=== PATIENT | female | born 1985 | race Caucasian/White ===

== ENCOUNTER 2023-06-16 19:50 | Emergency (ER) | payer OTHER, SELFPAY ==
[2023-06-16 20:07] VITALS: BP 120/81
[2023-06-16 20:22] LABS: % Basophils 0.5 % (0-2); % Eosinophils 0.8 % (0-6); % Immature Granulocytes 0.3 % (0-0.5); % Lymphocytes 20.5 % (20.5-51.1); % Monocytes 5.6 % (1.7-9.3); % Neutrophils 72.3 % (42.2-75.2); Absolute Basophils 0.1 10^3/uL (0-0.2); Absolute Eosinophils 0.1 10^3/uL (0-0.7); Absolute Lymphocytes 2.3 10^3/uL (1.2-3.4); Absolute Monocytes 0.6 10^3/uL (0.1-0.6); Hematocrit 38.6 % (37.0-47.0); Hemoglobin 12.5 g/dL (12.0-16.0); Mean Corp Hgb Conc. 32.4 g/dL (33.0-37.0); Mean Corpuscular Hgb 30.2 pg (27.0-31.0); Mean Corpuscular Volume 93.2 fL (81.0-99.0); Mean Platelet Volume 8.4 fL (7.4-10.4); Nucleated Red Blood Cells % 0 %; Platelet Count 257 10^3/uL (130-400); Red Blood Cell Count 4.14 10^6/uL (4.20-5.40); Red Cell Dist. Width 13.7 % (11.5-14.5)
[2023-06-16 20:38] LABS: ALT (SGPT) 19 U/L (0-35); AST (SGOT) 22 U/L (14-36); Albumin 4.5 g/dl (3.5-5.0); Alkaline Phosphatase 79 U/L (38-126); Blood Urea Nitrogen 17 mg/dl (7-17); Calcium 9.7 mg/dl (8.4-10.2); Carbon Dioxide 26 mmol/L (22-30); Chloride 103 mmol/L (98-107); Glucose 105 mg/dl (70-99); Sodium 137 mmol/L (135-145); Total Bilirubin 0.5 mg/dl (0.2-1.3); Total Protein 7.5 g/dl (6.3-8.2); eGFR > 60.00
[2023-06-16 20:43] LABS: Potassium 4.5 mmol/L (3.5-5.1)
[2023-06-16 22:18] VITALS: BP 109/72
--- NOTE | 2023-06-16 22:18 | ED.GENMED ---
History of Present Illness
General
Chief Complaint: Breathing Problem
Source: patient
Exam Limitations: none
Time Seen by Provider: 06/16/23 22:09
Travel History
Have you had any contact with someone who has COVID-19?: No
Do you have any symptoms of coronavirus? Fever > 100 degrees, chills, cough, shortness of breath, sore throat, loss of taste or smell, muscle aches, or headache?: No
History of Present Illness
History of Present Illness:
38-year-old female presents with cough and shortness of breath. She states that she gets lightheadedness when standing up. Denies chest pain. States that this has been going on for weeks but today it seems a little worse. She reports no fever or
chills. Patient does have a past medical history significant for stroke November 2022. She has left sided weakness from that. She states that the stroke was attributed to increased caffeine intake.
Vital signs are stable. Patient not hypoxic
Nursing note reviewed. I agree with nursing documentation up to this point in time.
Home Meds and allergies reviewed.
NUMBER AND COMPLEXITY OF PROBLEMS ADDRESSED AT THE ENCOUNTER
� Chronic conditions affecting care: Factor V Leiden, CVA on anticoagulation, smoker, weakness
� Acute Exacerbation and/or Progression of Chronic Illness: Weakness
� Differential Diagnosis includes: Dehydration, orthostatic hypotension, TIA
AMOUNT AND/OR COMPLEXITY OF DATA TO BE REVIEWED AND ANALYZED
I performed an independent evaluation of the following and my interpretation is:
EKG: EKG shows normal sinus rhythm rate of 92 with normal intervals, normal axis. No evidence of acute ischemia present. When compared with previous EKG dated March 15, 2023, no obvious interval change noted.
CT:
X-rays:
Ultrasound:
Laboratory Studies:
Other:
Review of other/old records:
Clinical information was obtained by an independent historian:
Prescriptions/Medications Considered but not given:
Further testing considered but not performed:
RISK OF COMPLICATIONS AND/OR MORBIDITY OR MORTALITY OF PATIENT MANAGEMENT
Social determinants of health affecting care: Good Social Support
Discussion with other providers:
Escalation of care including admission/observation vs risk of discharge considered:
CRITICAL CARE NOTE:
Total Time (exclusive of procedures):
Update:
Past History
Past History
ED Past Medical History: NIDDM, Psychiatric (Anxiety) and Other (Factor V Deficiency, gestational diabetes, gastric sleeve)
Social History
Tobacco: Smoker
Alcohol: None
Personal:
Living: with family
Employment: Employed
Family History
Family History: CAD and Other (Breast cancer)
Review of Systems
Review of Systems
Allergies reviewed?: Yes
All Other Systems: ROS reviewed and negative except as documented in HPI and ROS
Constitutional: Reports no symptoms
EENT: Reports no symptoms
Respiratory: Reports no symptoms
Cardiac: Reports no symptoms
ABD/GI: Reports no symptoms
: Reports no symptoms
Musculoskeletal: Reports no symptoms
Skin: Reports no symptoms
Neurological: Reports weakness
Endocrine: Reports no symptoms
Hematologic/Lymphatic: Reports no symptoms
Psychiatric: Reports anxiety
Phy Exam
General Physical Exam
General Presentation: well appearing and no apparent distress
General Skin: warm and dry
General Habitus: normal
General Mental: alert
General Hydration: appears well hydrated
ENT Exam
ENT Exam: EOMI, pharynx normal, neck supple and normocephalic
Eye Exam
Eye Exam: PERRL, cornea clear and conjunctiva normal
Cardiovascular Exam
Cardiovascular Exam: regular rate/rhythm, no edema, no murmur and normal peripheral pulses
Pulmonary Exam
Pulmonary Exam: lungs clear, no respiratory distress, no rales, no crackles, no rhonchi, no stridor, no wheezing and no cough
Gastrointestinal Exam
Gastrointestinal Exam: normal bowel sounds, non tender, soft, no organomegaly, no pulsatile mass and non distended
Neurological Exam
Neurological Exam: alert, oriented x3, no motor deficits and speech normal
Musculoskeletal Exam
Musculoskeletal Exam: other (Subacute left-sided weakness from CVA)
Skin Exam
Skin Exam: normal color, warm/dry and other (Multiple tattoos)
Psychiatric Exam
Psychiatric Exam: normal mood/affect
Course
Orders/Labs/Results
Orders:
Orders
06/16/23 20:09
Electrocardiogram (*1) Urgent
Reason for Study: Other
Other Reason for Exam: Respiratory Distress
Cardiac Monitoring- Treatment ONCE
EKG- Treatment ONCE
IV Insert/Care/Rem.- Treatment PRN
CR Chest - 2 Views Urgent
Comment:
Reason For Exam: respiratory distress
O2 Therapy [RESP] Urgent
Titrate/Wean O2 to maintain O2 sat greater than (%): 93
Special Instructions: TO MAINTAIN CONTINUOUS O2 SATS >/= 93%
Pulse Ox/cont/shift [RESP] Urgent
Quantity: 1
Special Instructions: continuous pulse ox
06/16/23 20:15
Complete Blood Count/With Diff Urgent
Comprehensive Metabolic Panel Urgent
06/16/23 22:19
Orthostatic VS- Treatment ONCE
06/17/23 02:34
Ambulate Patient-Treatment ONCE
Abnormal Lab Results
06/16/23
20:15
WBC 11.0 H 10^3/uL
(4.8-10.8)
RBC 4.14 L 10^6/uL
(4.20-5.40)
MCHC 32.4 L g/dL
(33.0-37.0)
Absolute Neuts (auto) 8.0 H 10^3/uL
(1.4-6.5)
Glucose 105 H mg/dl
(70-99)
06/16/23 20:15
06/16/23 20:15
Vital Signs
Initial and Last Documented VS:
Initial Vital Signs
Temp Pulse Resp BP Pulse Ox
98.1 F 114 19 120/81 98
06/16/23 20:07 06/16/23 20:07 06/16/23 20:07 06/16/23 20:07 06/16/23 20:07
Last Documented Vital Signs
Temp Pulse Resp BP Pulse Ox
98.1 F 103 12 96/65 97
06/16/23 20:07 06/17/23 02:45 06/17/23 02:45 06/17/23 00:00 06/17/23 02:30
*Critical Care Note
Total Time (30-74mins, 75-104mins- exclusive of procedures): Not Applicable
Update Note
Update Note:
06/17/2023 0244 AM: Patient states that she is feeling much better wishes to be discharged home. She denies dizziness or lightheadedness at this time.
ED Attending Note
-
Portions of this chart may have been created with voice recognition software.� Occasional wrong word or��sound alike� substitutions may have occurred due to the inherent limitations of voice recognition software.
Discharge Plan
Departure
Patient Disposition: Home (Routine Discharge)
Date of Disposition: 06/17/23
Time of Disposition: 02:44
Patient with high blood pressure during this ER visit?: No
Condition: Good
Discharge Problem:
Dizziness, Cough
Instructions: Cough in adults, Dizziness, Adult ED
Prescriptions:
No Action
prednisone 20 mg tablet
40 mg PO DAILY 4 Days Qty: 8 0RF
Referrals:
[facility] [Outside]
[facility] [Outside]
UNKNOWN - PT DOES,NOT KNOW [Family Provider] -
Activity Restrictions/Additional Instructions:
It was a pleasure meeting you and taking part in your care. We hope for your continued healing and wellness.
Please read discharge instructions in their entirety. However, they are for general education and may not describe your exact diagnosis at discharge. Information on your ER visit and medical conditions were discussed with you along with appropriate
follow up information...
If indicated, please take your medications as instructed and indicated on discharge paperwork.
Please schedule a follow up appointment as directed. Call to schedule an appointment
Please return to the emergency department with ANY change in, persisting, or worsening of symptoms. If any of your symptoms do not improve, or persist, or become more severe within 6-12 hours, please return to the emergency department for further
care.
Please return to the emergency department if you develop a headache, neck pain/stiffness, fever greater than 100.4F, chest pain, shortness of breath, persistent nausea, vomiting, slurred speech, difficulty walking, numbness/tingling, weakness, signs
of infection or any other symptoms that are worrisome to you.
If you have any questions or concerns please do not hesitate to call the Hospital at
Interventions
Interventions:
*Risk Screen - Suicide Last Done: 06/16/23 20:07
*General Assessment Last Done: 06/16/23 20:07
*Neglect/Abuse Screening Last Done: 06/16/23 20:07
ED- Fall Risk Assessment Last Done: 06/16/23 22:47
*ED COVID-19 Vaccine History Last Done: 06/16/23 20:07
*Nursing Disposition Last Done: 06/17/23 02:56
ED- Cardiac Assessment Last Done: 06/16/23 22:47
ED- Pulmonary Assessment Last Done: 06/16/23 22:47
Discharge Date and Time
Discharge Date/Time: 06/17/23 02:57
Print Language: DANISH
[2023-06-16 22:19] VITALS: BP 109/72; BP 115/80; BP 94/81; PULSE 118; PULSE 83; PULSE 96
[2023-06-16 22:20] VITALS: BP 94/81
[2023-06-17] VITALS: BP 96/65
== END 2023-06-17 02:57 | disposition home or self-care (01) ==
LOC: EMR 19:50
PROVIDERS: Emergency Medicine; EMERGENCY PHYSICIAN Student in an Organized Health Care Education/Training Program
DX: R42 Dizziness and giddiness (principal); R05.9 Cough, unspecified; R06.02 Shortness of breath; E11.9 Type 2 diabetes mellitus without complications; D68.51 Activated protein C resistance; I69.354 Hemiplegia and hemiparesis following cerebral infarction affecting left non-dominant side; F41.9 Anxiety disorder, unspecified; F17.200 Nicotine dependence, unspecified, uncomplicated; Z98.84 Bariatric surgery status
CPT/HCPCS: 99284; 94760; 71046; 80053; 85025; 93005

== ENCOUNTER 2023-10-11 06:19 | Emergency (ER) | payer OTHER, SELFPAY ==
[2023-10-11 06:31] VITALS: BP 103/60
--- NOTE | 2023-10-11 07:06 | ED.GENMED ---
History of Present Illness
General
Chief Complaint: Abdominal Pain
Source: patient
Exam Limitations: none
Time Seen by Provider: 10/11/23 07:05
Nursing documentation reviewed up to this point in time: agreed with
History of Present Illness
History of Present Illness:
38-year-old female with history of migraines, TIA, HLD, GERD, gastric sleeve, x 2, tubal ligation, factor V deficiency on Xarelto, presents stating chronic indigestions, takes Protonix daily, suddenly mid epigastric pain worsened yesterday
to 11/16 stabbing sharp pains, trouble sleeping, nausea no vomiting, pain now 09/15.
Milk helps 'coat the pain.' Eating makes pain worse. Took an Edible yesterday which helped. Having normal BMs, no change in color
Hx diabetes but resolved after gastric sleeve.
Past History
Past History
ED Past Medical History: Psychiatric (Anxiety) and Other (Factor V Deficiency, gestational diabetes, gastric sleeve)
Social History
Tobacco: Smoker
Alcohol: None
Personal:
Living: with family
Employment: Employed
Family History
Family History: CAD and Other (Breast cancer)
Review of Systems
Review of Systems
Allergies reviewed?: Yes
All Other Systems: ROS reviewed and negative except as documented in HPI and ROS
Constitutional: Denies fever
Respiratory: Denies trouble breathing
Cardiac: Denies chest pain
ABD/GI: Reports abdominal pain and nausea; Denies vomiting, diarrhea, constipated, bloody stools, black stools or anorexia
: Denies dysuria, frequency or difficulty voiding
Musculoskeletal: Reports no symptoms
Skin: Reports no symptoms
Neurological: Reports no symptoms
Phy Exam
Physical Exam
Physical Exam:
GENERAL: No acute distress. A&Ox3.
CONSTITUTIONAL: Afebrile.
EYES: clear, conjunctivae normal
ENMT: moist mucus membranes, Pharynx nl
RESPIRATORY: Regular respirations, nonlabored, lungs clear.
CARDIOVASCULAR: Regular rate and rhythm, no murmurs, no rubs.
GI: Soft, tender mid epigastric area, normal BS
MUSCULOSKELETAL: Moves with ease. Well perfused.
SKIN: Warm, dry, pink
PSYCH: Depressed mood and affect. Well kept, interactive and appropriate
NEUROLOGIC: Awake, alert and oriented. No focal neurological deficits
Course
Orders/Labs/Results
Orders:
Orders
10/11/23 07:16
IV Insert/Care/Rem.- Treatment PRN
0.9% Sodium Chloride 1000 ml [Nss] 1,000 ml IV BOLUS
Ondansetron Injectable [Zofran] 4 mg IV NOW STA
10/11/23 07:17
Test Result ONCE
US Abdomen Complete/Upper Urgent
Comment:
Reason For Exam: mid epigastric pain
10/11/23 07:22
Complete Blood Count/With Diff Urgent
Comprehensive Metabolic Panel Urgent
HCG, Serum Qualitative Screen Urgent
Lipase Urgent
Abnormal Lab Results
10/11/23
07:22
Chloride 109 H mmol/L
(98-107)
Lipase 316 H U/L
(23-300)
10/11/23 07:22
10/11/23 07:22
Vital Signs
Initial and Last Documented VS:
Initial Vital Signs
Temp Pulse Resp BP Pulse Ox
98.5 F 114 20 103/60 100
10/11/23 06:31 10/11/23 06:31 10/11/23 06:31 10/11/23 06:31 10/11/23 06:31
Last Documented Vital Signs
Temp Pulse Resp BP Pulse Ox
98.5 F 114 20 93/65 99
10/11/23 06:31 10/11/23 06:31 10/11/23 06:31 10/11/23 11:00 10/11/23 09:19
MDM/Problems Addressed
Differential Diagnosis Includes:
GERD, biliary colic, GB disease, PUD
MDM/Problems Addressed:
38-year-old female with history of migraines, TIA, HLD, GERD, gastric sleeve, x 2, tubal ligation, factor V deficiency on Xarelto, presents stating chronic indigestions, takes Protonix daily, suddenly mid epigastric pain worsened yesterday
to 9/10 stabbing sharp pains, trouble sleeping, nausea no vomiting, pain now 7/10.
Milk helps 'coat the pain.' Eating makes pain worse. Took an Edible yesterday which helped. Having normal BMs, no change in color
Hx diabetes but resolved after gastric sleeve.
Afebrile, NAD, VSS
CBC normal
CMP Normal
Lipase minimally elevated 316
10:45 a.m.
Upper abdominal ultrasound radiology report read: IMPRESSION:
Cholelithiasis with a 2.3 cm stone. There are no sonographic signs suggestive of acute cholecystitis. No evidence of biliary ductal dilation.
Possible 3 mm nonobstructing stone in the lower pole of the left kidney.
Most likely biliary colic with GERD
Pt has had no vomiting, afebrile, pain is chronic, intermittent, well controlled with 'Edibles' no need for admission, referred to Surgery for f/u
Patient is comfortable with this plan. Pain is minimal at this time.
*Critical Care Note
Total Time (30-74mins, 75-104mins- exclusive of procedures): Not Applicable
ED Attending Note
-
Portions of this chart may have been created with voice recognition software.� Occasional wrong word or��sound alike� substitutions may have occurred due to the inherent limitations of voice recognition software.
Discharge Plan
Departure
Patient Disposition: Home (Routine Discharge)
Date of Disposition: 10/11/23
Time of Disposition: 10:52
Patient with high blood pressure during this ER visit?: No
Condition: Good
Discharge Problem:
Biliary colic, GERD (gastroesophageal reflux disease)
Instructions: Acid Reflux and GERD in Adults (DC), Gallstones (DC), Abdominal Pain
Prescriptions:
No Action
prednisone 20 mg tablet
40 mg PO DAILY 4 Days Qty: 8 0RF
Referrals:
Syed Purdy MD [Active] - Next open appointment
Erica Singleton MD [Active] - Next open appointment
Chiquita Thompson DO [Family Provider] -
Activity Restrictions/Additional Instructions:
As we discussed, you do have a gall stone.
Call and make an appointment with a general surgeon to discuss possibly removing her gallbladder since it has been bothering him for so long.
I gave you the name of the GI doctor to follow-up with for your indigestion/GI reflux. Continue your Protonix
Interventions
Interventions:
*Risk Screen - Suicide Last Done: 10/11/23 06:31
*General Assessment Last Done: 10/11/23 06:31
*Neglect/Abuse Screening Last Done: 10/11/23 06:31
ED- Fall Risk Assessment Last Done: 10/11/23 06:31
*ED COVID-19 Vaccine History Last Done: 10/11/23 06:31
*Nursing Disposition Last Done: 10/11/23 11:03
YO-Whrwwr-Dpksqgzqcg Assessment Last Done: 10/11/23 11:02
Discharge Date and Time
Discharge Date/Time: 10/11/23 11:03
Print Language: IRANIAN
[2023-10-11 07:11] VITALS: BMI 19.8
[2023-10-11 07:13] VITALS: BP 97/69
[2023-10-11] MEDS: NSS 1000 IV (07:21)
[2023-10-11] MEDS: ZOFRAN 4 MG IV (07:28)
[2023-10-11 07:33] LABS: % Basophils 0.6 % (0-2); % Eosinophils 1.1 % (0-6); % Immature Granulocytes 0.2 % (0-0.5); % Neutrophils 66.1 % (42.2-75.2); Absolute Basophils 0.1 10^3/uL (0-0.2); Absolute Eosinophils 0.1 10^3/uL (0-0.7); Absolute Lymphocytes 2.3 10^3/uL (1.2-3.4); Absolute Monocytes 0.5 10^3/uL (0.1-0.6); Absolute Neutrophils 5.8 10^3/uL (1.4-6.5); Hematocrit 38.7 % (37.0-47.0); Mean Corp Hgb Conc. 33.6 g/dL (33.0-37.0); Mean Corpuscular Hgb 30.7 pg (27.0-31.0); Mean Corpuscular Volume 91.5 fL (81.0-99.0); Mean Platelet Volume 8.4 fL (7.4-10.4); Nucleated Red Blood Cells % 0 %; Platelet Count 195 10^3/uL (130-400); Red Blood Cell Count 4.23 10^6/uL (4.20-5.40); Red Cell Dist. Width 13.4 % (11.5-14.5); White Blood Cell Count 8.7 10^3/uL (4.8-10.8)
[2023-10-11 07:42] LABS: HCG, Serum Qualitative Screen Negative
[2023-10-11 07:46] LABS: ALT (SGPT) 14 U/L (0-35); AST (SGOT) 18 U/L (14-36); Albumin 4.4 g/dl (3.5-5.0); Alkaline Phosphatase 61 U/L (38-126); Blood Urea Nitrogen 17 mg/dl (7-17); Calcium 9.4 mg/dl (8.4-10.2); Carbon Dioxide 27 mmol/L (22-30); Chloride 109 mmol/L (98-107); Estimated Creatinine Clearance 64 ml/min; Glucose 94 mg/dl (70-99); Lipase 316 U/L (23-300); Sodium 142 mmol/L (135-145); Total Bilirubin 0.4 mg/dl (0.2-1.3); Total Protein 7.1 g/dl (6.3-8.2); eGFR > 60.00
[2023-10-11 08:00] VITALS: BP 101/75
[2023-10-11 09:00] VITALS: BP 109/68
[2023-10-11 11:00] VITALS: BP 93/65
== END 2023-10-11 11:03 | disposition home or self-care (01) ==
LOC: EMR 06:19
PROVIDERS: Registered Nurse; EMERGENCY PHYSICIAN Emergency Medicine; FAMILY PHYSICIAN Family Medicine
DX: K80.70 Calculus of gallbladder and bile duct without cholecystitis without obstruction (principal); E78.5 Hyperlipidemia, unspecified; F17.200 Nicotine dependence, unspecified, uncomplicated; K21.9 Gastro-esophageal reflux disease without esophagitis
CPT/HCPCS: 99284; 96374; 96361; 76700; 80053; 83690; 84703; 85025

== ENCOUNTER 2024-01-02 12:17 | Inpatient (IN) | payer OTHER, SELFPAY ==
[2024-01-02] VITALS (8 sets, daily range): BP systolic 95–116; BP diastolic 60–74; BMI 20.7; BMI 20.5
[2024-01-02 00:32] LABS: Urine Albumin Trace (Neg - Trace); Urine Bilirubin Negative (Negative); Urine Character Slightly Cloudy (Clear); Urine Color Yellow; Urine Glucose Negative (Negative); Urine Ketone Negative (Negative); Urine Leukocyte 2+ (Negative); Urine Nitrite Negative (Negative); Urine Occult Blood Negative (Negative); Urine Specific Gravity 1.025 (<1.030); Urine Urobilinogen Negative (Neg - 1+)
--- NOTE | 2024-01-02 00:35 | ED.GENMED ---
History of Present Illness
General
Chief Complaint: Flank Pain
Source: patient
Exam Limitations: none
Time Seen by Provider: 01/02/24 00:27
Nursing documentation reviewed up to this point in time: agreed with
History of Present Illness
History of Present Illness:
Patient with history of kidney stones, presents to ED secondary to recurrent left flank/mid back pain, which woke the patient from sleep. Since then, patient has had multiple vomiting episodes, along with continual pain. Patient states that her
symptoms are similar to previous episodes of kidney stones.
Past History
Past History
ED Past Medical History: Psychiatric (Anxiety) and Other (Factor V Deficiency, gestational diabetes, gastric sleeve)
Social History
Tobacco: Smoker
Alcohol: None
Personal:
Living: with family
Employment: Employed
Family History
Family History: CAD and Other (Breast cancer)
Review of Systems
Review of Systems
Allergies reviewed?: Yes
All Other Systems: ROS reviewed and negative except as documented in HPI and ROS
Constitutional: Reports no symptoms; Denies fever or chills
ABD/GI: Reports nausea and vomiting; Denies abdominal pain
: Reports flank pain; Denies frequency or difficulty voiding
Musculoskeletal: Reports back pain
Skin: Reports no symptoms
Neurological: Reports no symptoms
Phy Exam
Physical Exam
Physical Exam:
Physical Exam
General: mild painful distress, not acutely ill. afebrile
Head: nc/at. eomi
Neck: supple. no meningeal signs.
Abdomen: normal bowel sounds. not tender.
Neuro: alert and oriented. no focal neurological deficits
Skin: no rash
Psychiatric: well kept. interactive and cooperative
Extremities: no edema. no calf tenderness.
Course
Orders/Labs/Results
Orders:
Orders
01/02/24 00:25
Urinalysis Reflex To Culture Urgent
Date Specimen was Collected: 01/02/24
Time Specimen was Collected: 00:22
Urine Microscopic Reflex Cult Urgent
Urine Culture Urgent
GERRI Source: U
Specimen Description:
Date Specimen was Collected: 01/02/24
Time Specimen was Collected: 00:22
01/02/24 00:34
CT Abd/pel Without Iv Or Oral Urgent
Comment:
Reason For Exam: left flank/mid back pain
Ketorolac [Toradol] 15 mg IV NOW STA
Ondansetron Injectable [Zofran] 4 mg IV NOW STA
Test Result ONCE
01/02/24 00:42
Complete Blood Count/No Diff Urgent
Comprehensive Metabolic Panel Urgent
Direct Bilirubin Urgent
HCG, Serum Qualitative Screen Urgent
Lipase Urgent
01/02/24 02:57
Add On- LAB Urgent
Tests Added?: LFTs, lipase
01/02/24 02:58
Ketorolac [Toradol] 15 mg IV NOW STA
Oxycodone/Acetaminophen [Percocet 5/325] 1 tablet PO NOW STA
01/02/24 03:04
Ondansetron Injectable [Zofran] 4 mg IV NOW STA
01/02/24 03:19
HYDROmorphone [Dilaudid] 0.5 mg IV NOW STA
01/02/24 03:21
US Abdomen Complete/Upper Urgent
Comment:
Reason For Exam: RUQ pain
01/02/24 04:06
Admit/Transfer Patient As Directed
Co-Sign Provider:
Level of Care: Observation services
Assign to:: Medical/Surgical
Physician / Group: Dr. Tiwari colorectal Surgical
Diagnosis: Cholelithiasis/ Acute cholecystitis
01/02/24 04:07
PRN Pain Medication Management As Directed
May give lesser potent ordered pain med per pt: Yes
preference::
Protocol:: Medication orders for pain may be administered in a
manner that supports deferring to patient preference
when the pt is:
- Requesting an ordered lesser potent pain medication.
Least to most potent pain medications are defined
as: acetaminophen < NSAID < tramadol < opioids
(morphine, oxycodone, hydromorphone).
- Requesting a lesser dose of the same medication IF
ORDERED.
- Requesting a less intrusive route of administration
if both routes are prescribed by the provider (PO <
IV).
01/02/24 04:15
Code Status As Directed
Resuscitation Status: Full Code
01/02/24 Breakfast
NPO
Allow oral meds: Yes
Allow clear liquids: No
01/02/24 06:25
0.9% Sodium Chloride 1000 ml [Nss] 1,000 ml IV 70 mls/hr
Acetaminophen [Tylenol] 650 mg PO Q4HPRN PRN
Bisacodyl [Dulcolax] 10 mg RECTAL [id number] PRN
Docusate W/Senna [Senokot-S] 1 tablet PO BIDPRN PRN
HYDROmorphone [Dilaudid] 0.25 mg IV Q4HPRN PRN
HYDROmorphone [Dilaudid] 0.5 mg IV Q4HPRN PRN
Ondansetron Injectable [Zofran] 4 mg IV Q6HPRN PRN
Polyethylene Glycol Powder [Miralax] 17 grams PO DAILYPRN PRN
01/02/24 06:25
Activity As Directed
Activity Level: Out of Bed-Early Mobility
Pneumatic Compression Sleeves As Directed
Type: Knee high
Vital Signs As Directed
Frequency: Per unit guidelines
DX Deep Vein Thrombosis Video Routine
Abnormal Lab Results
01/02/24 01/02/24
00:25 00:42
WBC 15.7 H 10^3/uL
(4.8-10.8)
Chloride 108 H mmol/L
(98-107)
Glucose 119 H mg/dl
(70-99)
Leukocyte Esterase Rfl 2+ A
(Negative)
Urine WBC (Reflex) 50-60 A /HPF
(0-5)
Urine Bacteria (Reflex) Moderate A
(Negative)
01/02/24 00:42
01/02/24 00:42
Vital Signs
Initial and Last Documented VS:
Initial Vital Signs
Pulse Resp BP Pulse Ox
81 20 101/70 92
01/02/24 00:17 01/02/24 00:17 01/02/24 00:17 01/02/24 00:17
Last Documented Vital Signs
Temp Pulse Resp BP Pulse Ox
98.2 F 74 16 116/74 100
01/02/24 16:15 01/02/24 16:15 01/02/24 16:15 01/02/24 16:15 01/02/24 16:15
MDM/Problems Addressed
MDM/Problems Addressed:
CT abdomen/pelvis: gallstones noted, without any evidence of obstructing kidney stone.
Patient remains symptomatic despite treatment with multiple medications. In light of patient's continual abdominal discomfort, as well as gallstones noted, as well as leukocytosis, concerning for potential acute cholecystitis.
Discussed with on-call surgeon, Dr. Tiwari, who advises withholding antibiotics at this time, but request abdominal ultrasound and admission.
*Critical Care Note
Total Time (30-74mins, 75-104mins- exclusive of procedures): Not Applicable
ED Attending Note
-
Portions of this chart may have been created with voice recognition software.� Occasional wrong word or��sound alike� substitutions may have occurred due to the inherent limitations of voice recognition software.
Discharge Plan
Departure
Patient Disposition: Admit
Date of Disposition: 01/02/24
Time of Disposition: 03:22
Admit to: Med/Surg
Presentation/result/management discussed w/ accepting MD/DO:
Discharge Problem:
Acute cholecystitis
Interventions
Interventions:
*Risk Screen - Suicide Last Done: 01/02/24 06:36
*General Assessment Last Done: 01/02/24 00:46
*Neglect/Abuse Screening Last Done: 01/02/24 00:17
ED- Fall Risk Assessment Last Done: 01/02/24 06:10
*ED COVID-19 Vaccine History Last Done: 01/02/24 00:17
*Nursing Disposition Last Done: 01/02/24 06:10
MV-[id number]-Ladvrocxzg Assessment Last Done: 01/02/24 00:50
Discharge Date and Time
Discharge Date/Time: 01/02/24 06:10
[2024-01-02 00:38] LABS: Urine Squamous Cell >30 /LPF (Few)
[2024-01-02 00:39] LABS: Urine Bacteria Moderate (Negative); Urine Red Blood Cell None Seen /HPF (0-2); Urine White Cell 50-60 /HPF (0-5)
[2024-01-02] MEDS: ZOFRAN 4 MG IV ×2 (00:43→03:06)
[2024-01-02] MEDS: TORADOL 15 MG IV ×2 (00:44→03:08)
[2024-01-02 00:54] LABS: Hematocrit 37.8 % (37.0-47.0); Mean Corp Hgb Conc. 34.4 g/dL (33.0-37.0); Mean Platelet Volume 8.6 fL (7.4-10.4); Platelet Count 249 10^3/uL (130-400); White Blood Cell Count 15.7 10^3/uL (4.8-10.8)
[2024-01-02 01:09] LABS: HCG, Serum Qualitative Screen Negative
[2024-01-02 01:17] LABS: Blood Urea Nitrogen 17 mg/dl (7-17); Calcium 9.1 mg/dl (8.4-10.2); Carbon Dioxide 25 mmol/L (22-30); Chloride 108 mmol/L (98-107); Estimated Creatinine Clearance 67 ml/min; Glucose 119 mg/dl (70-99); Potassium 4.3 mmol/L (3.5-5.1); Sodium 145 mmol/L (135-145); eGFR > 60.00
[2024-01-02] MEDS: DILAUDID 0.5 MG IV ×4 (03:29→20:19)
[2024-01-02 03:40] LABS: ALT (SGPT) 21 U/L (0-35); AST (SGOT) 22 U/L (14-36); Albumin 4.4 g/dl (3.5-5.0); Alkaline Phosphatase 61 U/L (38-126); Direct Bilirubin 0.1 mg/dl (0.0-0.4); Lipase 279 U/L (23-300); Total Bilirubin 0.2 mg/dl (0.2-1.3); Total Protein 7.1 g/dl (6.3-8.2)
--- NOTE | 2024-01-02 04:21 | HPS.HSE ---
Addendum entered and electronically signed by Tanner Banda MD 01/02/24 12:47:
38 female history of TIA migraines gastric sleeve factor V Leyden, anxiety presents with right-sided flank pain, abdominal pain. States worse after eating dinner and before sleeping. 10 out of 10 pain. Known history of recurrent UTIs and admits
to urinary frequency. Also associated with multiple episodes of vomiting.
Found to have a white count of 15.7, ua with pyuria/bacteruria and leuks. Hemodyncamically stbale
Imaging
CTAP
IMPRESSION:
Nonobstructing right renal calculi.
No findings to suggest obstructive uropathy bilaterally.
Mild colonic diverticulosis.
Unremarkable appendix.
Prior gastric bypass surgery.
Possible mild gallbladder wall thickening. Please see separate concurrent Abdominal ultrasound report.
ABdominal ultrasound
IMPRESSION: Cholelithiasis with borderline gallbladder wall thickening. Negative sonographic Tomas's sign although may be limited by patient medication. No findings to suggest biliary tract dilatation. Some mild gallbladder adenomyomatosis cannot
be excluded.
Spleen not well visualized.
Small nonobstructing right renal calculus.
Physical Exam
NAD, resting comfortably in bed
Scleral anicteric
Moist mucous membranes
No JVD
CTA bilateral
Normal S1-S2 no murmurs
Soft nontender nondistended bowel sounds active
CVA tenderness +, right sided
No peripheral pitting edema
Moves extremities spontaneously
AAOx3
Assessment and Plan
UTI (?pyelo as there is Rt CVA tenderness) vs gallbladder pathology
-HIDA scan
-NPO
-Surgery following
-IV Atb
-UCx, de-ecalate atb to po when sensi's return
-Follow white ocunt
Factor V Leiden
-contineu xarelto
Original Note:
Family Physician
-
Family Physician: Chiquita Thompson DO
Chief Complaint
-
Abdominal/ flank pain
History of Present Illness
a 38 years old female with PMH of kidney stones, TIA, migraines, gastric sleeve, factor V deficiency, and anxiety. Present in ER with a complain of RT flank pain, abdomen pain above umbilical area, and mid back pain. Patient had dinner of meatball
before sleeping and she woke with severe pain rated 10/10 of pain scale, described the pain as pressure. Symptoms associated with multiple episodes of vomiting. Denied diarrhea, constipation, chills, fever, SOB, chest pain, or any other symptoms.
Patient denies taking any prescribed meds except Adderall 40mg daily .
Medical History
Past Medical History
Past Medical History: Reports Psychiatric (anxiety) and Other (Factor V deficiency, TIA, )
Past Surgical History: Reports (x2 ), Gynocological ( tubal ligation) and Other (gastric sleeve )
Social History
Tobacco: Smoker
Alcohol: None
Drug: Marijuana
Personal:
Living: With Family
Employment: Employed
Family History
Family History: CAD, Cancer (breast cancer ) and Other (Sister with gallbladder disease)
Allergies / Home Medications
Allergies reflects when Allergies were last updated in [facility].
Home Medications with original date entered in [facility]
Allergy/Medication List:
Patient Allergies
Allergy/AdvReac Type Severity Reaction Status Date / Time
No Known Allergies Allergy Verified 01/02/24 00:17
Home Medications Table - record
�Medication �Instructions �Recorded �Confirmed
Adderall XR 40 mg PO DAILY 01/02/24 01/02/24
pregabalin 50 mg capsule (Lyrica) 50 mg PO BID 01/02/24 01/02/24
Review of Systems
-
A 12 point ROS was completed and negative except as noted: Yes
Constitutional: Reports No Symptoms
Respiratory: Reports No Symptoms
Cardiac: Reports No Symptoms
Abdomen/GI: Reports Abdominal Pain, Vomiting and Pain (upper middle abdomen )
: Reports No Symptoms
Musculoskeletal: Reports No Symptoms
Psych: Reports No Symptoms
Physical Exam
Vital Signs
Vital Signs
Temp Pulse Resp BP Pulse Ox
98.3 F 67 16 99/72 96
01/02/24 03:13 01/02/24 03:13 01/02/24 03:13 01/02/24 03:13 01/02/24 03:13
Physical Exam
General: No Apparent Distress
Respiratory: Clear
Cardiac: Regular Rhythm
GI: Soft, Non Distended, Normal Bowel Sounds and Tender (RUQ and above umbilical area )
Musculoskeletal: No Edema
Neuro: Awake and AO x 3
Laboratory Results
-
01/02/24 00:42
01/02/24 00:42
Laboratory Results
Total Bilirubin 0.2 mg/dl (0.2-1.3) 01/02/24 00:42
AST 22 U/L (14-36) 01/02/24 00:42
ALT 21 U/L (0-35) 01/02/24 00:42
Alkaline Phosphatase 61 U/L (38-126) 01/02/24 00:42
Lipase 279 U/L (23-300) 01/02/24 00:42
Data Reviewed
-
CT Scan: Discussed with Patient
Impression/Plan
-
Abd/ PLVS CT Show
-Normal Appendix
-Nonobstructing stones in the RT kidney. No hydronephrosis or hydroureter.
-Occasional diverticula without evidence of diverticulitis.
-Gallstone and the gallbladder is mildly distended but no evidence of surrounding inflammatory changes or biliary dilation.
-No adnexal masses or significant free fluids
-Gastric sleeve procedure.
WBC 15.7
IMPRESSION:
cholelithiasis/ Biliary colic
PLAN:
Admit/observation/ med-surg (Dr. Tiwari/ Surgical services).
NPO
IVF
analgesics as needed
antiemetics as needed
recommends withholding abx and ordering RUQ abdomen, result still pending.
PMH
TIA 2022
Factor V deficiency
Patient denies taking any prescribed meds at home
DVT prophylaxis SCDs
Code status Full code
[2024-01-02] MEDS: NSS 1000 IV (07:49)
[2024-01-02] MEDS: ZOSYN 50 IV ×2 (11:22→17:03)
--- NOTE | 2024-01-02 12:29 | CON.GS ---
Addendum entered and electronically signed by Mike Tiwari MD 01/02/24 16:09:
HIDA negative for cholecystitis; clinical picture most consistent with pyelonephritis
Advance diet as tolerated; surgery will sign off, please call for questions or concerns
Original Note:
Medical History
-
Chief Complaint: right flank pain
History of Present Illness:
Ms Bullard is a 38 yo female with a h/o active smoker, factor v leiden on Xarelto (LD 12/31 in the am), CVA with thrombectomy at [facility] 05/03/2022, nephrolithiasis csections and gastric bypass who presents with right flank pain which awakened her from
sleep in the middle of the night. She notes pain to her right back around to the front of her abdomen. She noted nausea and vomiting at onset of symptoms. Negative tomas's but some tenderness present to the RUQ. She denies fevers or chills. She
said the pain initially felt like she was passing a kidney stone which caused her to present through the ED.
Past Medical History
Past Medical History: CVA (04/2022) and Other (Gestational diabetes, factor V leiden)
Past Surgical History: Bariatric (gastric sleeve), (x2) and Other (tubal ligation)
Social History
Tobacco: Smoker (less than 1/2 ppd, cutting back since stroke)
Alcohol: Occasional
Drug: Marijuana
Personal:
Family History
Family History: Reviewed & Not Pertinent and Cancer (breast)
Allergies / Home Medications
Allergy/AdvReac Type Severity Reaction Status Date / Time
No Known Allergies Allergy Verified 01/02/24 00:17
�Medication �Instructions �Recorded �Confirmed �Type
Adderall XR 40 mg PO DAILY 01/02/24 01/02/24 History
pregabalin 50 mg capsule (Lyrica) 50 mg PO BID 01/02/24 01/02/24 History
rivaroxaban 20 mg tablet (Xarelto) 20 mg PO DAILY Stroke 01/02/24 01/02/24 History
Review of Systems
-
History Source: Patient
All other systems: Negative unless noted
A 10 point review of systems was completed, and was negative except as per HPI.
Physical Exam
Vital Signs
Temp Pulse Resp BP Pulse Ox
98.6 F 70 16 100/66 100
01/02/24 07:00 01/02/24 07:00 01/02/24 07:00 01/02/24 07:00 01/02/24 07:00
01/01/24 01/02/24 01/03/24
06:59 06:59 06:59
Actual Weight 55.792 kg
Body Mass Index (BMI) 20.5
Lab Results
01/02/24 00:42
01/02/24 00:42
WBC 15.7 10^3/uL (4.8-10.8) H 01/02/24 00:42
Hgb 13.0 g/dL (12.0-16.0) 01/02/24 00:42
Hct 37.8 % (37.0-47.0) 01/02/24 00:42
Plt Count 249 10^3/uL (130-400) 01/02/24 00:42
Physical Exam
General: Well Developed and Well Nourished
HEENT: Moist Mucous Membranes
Respiratory: Non Labored Respirations
GI: Soft, Non Distended and Tender (mild to RUQ, neg tomas's)
Skin: Warm
Neuro: Awake, Alert and AO x 3
Psych: Calm
Assessment / Plan
-
38 yo female with a h/o active smoker, factor v leiden on Xarelto (LD 12/31 in the am), CVA with thrombectomy at [facility] 05/03/2022, nephrolithiasis c-sections and gastric bypass who presents with right flank pain radiating around to the RUQ with n/v at
onset of symptoms. Leukocytosis present. LFT's wnl. Afebrile. VSS.
ABD US with Cholelithiasis with borderline gallbladder wall thickening. Negative sonographic Tomas's sign on US and bedside exam. Possible gallbladder wall thickening on Ct as well but without significant inflammatory stranding/edema or distention.
UA abnormal with Cx pending. Unclear if this is symptomatic cholelithiasis vs more likely uti (early pyelo).
Transfer to hospitalist service
--Start ABX empirically
--Follow urine cx
--Check HIDA (npo for testing)
--Further surgical recommendations pending HIDA scan
[2024-01-02] MEDS: MORPHINE SULFATE 2 MG IV (14:44)
--- NOTE | 2024-01-02 15:46 | CM ---
Alert awake oriented patient who lives with her and 2 kids 15yo and 18 yo who live in a 2 story home with 4 steps to enter and bed/bathroom on fisrt floor. She is independent in driving and activates of daily living.Observation letter
explained and copy left with pt . Observation letter on chart . Pt did not sign.
No VN in past . No SNF hx
Pharmacy [facility]
PCP Dr Thompson
PLAN Home with no needs
[2024-01-02] MEDS: PEPCID 20 MG PO (17:03)
[2024-01-02] MEDS: LYRICA 50 MG PO (20:13)
--- NOTE | 2024-01-02 23:04 | PTCARENOTE ---
Received pt from previous RN, pt sleeping in bed, appears in no distress, rise and fall of chest, bed in lowest position call stephens at side.
[2024-01-03] MEDS: ZOSYN 50 IV ×5 (00:11→23:23)
[2024-01-03] MEDS: DILAUDID 0.5 MG IV ×5 (00:11→21:36)
[2024-01-03] MEDS: NSS 1000 IV (02:39)
[2024-01-03 05:10] LABS: Blood Urea Nitrogen 15 mg/dl (7-17); Calcium 8.4 mg/dl (8.4-10.2); Carbon Dioxide 25 mmol/L (22-30); Chloride 110 mmol/L (98-107); Estimated Creatinine Clearance 66 ml/min; Glucose 93 mg/dl (70-99); Potassium 3.8 mmol/L (3.5-5.1); Sodium 141 mmol/L (135-145); eGFR > 60.00
[2024-01-03 05:19] LABS: Hematocrit 32.2 % (37.0-47.0); Hemoglobin 10.9 g/dL (12.0-16.0); Mean Corp Hgb Conc. 33.9 g/dL (33.0-37.0); Mean Corpuscular Hgb 30.4 pg (27.0-31.0); Mean Corpuscular Volume 89.9 fL (81.0-99.0); Mean Platelet Volume 8.8 fL (7.4-10.4); Platelet Count 176 10^3/uL (130-400); Red Blood Cell Count 3.58 10^6/uL (4.20-5.40); White Blood Cell Count 10.2 10^3/uL (4.8-10.8)
[2024-01-03 07:00] VITALS: BP 126/59
[2024-01-03] MEDS: LYRICA 50 MG PO ×2 (07:33→21:00)
[2024-01-03] MEDS: XARELTO 20 MG PO (07:33)
--- NOTE | 2024-01-03 12:21 | W.PN.HOSP.TC ---
Today's Communication/Plan
-
Assessment / Plan
Assessment / Plan
Imaging
CTAP
IMPRESSION:
Nonobstructing right renal calculi.
No findings to suggest obstructive uropathy bilaterally.
Mild colonic diverticulosis.
Unremarkable appendix.
Prior gastric bypass surgery.
Possible mild gallbladder wall thickening. Please see separate concurrent Abdominal ultrasound report.
Abdominal ultrasound
IMPRESSION: Cholelithiasis with borderline gallbladder wall thickening. Negative sonographic Tomas's sign although may be limited by patient medication. No findings to suggest biliary tract dilatation. Some mild gallbladder adenomyomatosis cannot
be excluded.
Spleen not well visualized.
Small nonobstructing right renal calculus.
HIDA scan
IMPRESSION:
Findings indicate patent cystic and common bile ducts.
Physical Exam
NAD, resting comfortably in bed
Scleral anicteric
Moist mucous membranes
No JVD
CTA bilateral
Normal S1-S2 no murmurs
Soft nontender nondistended bowel sounds active
CVA tenderness +, right sided
No peripheral pitting edema
Moves extremities spontaneously
AAOx3
Assessment and Plan
UTI (?pyelo as there is Rt CVA tenderness) vs gallbladder pathology
-HIDA scan as above
-Regular diet
-Surgery following, no indication for OR
-IV Atb transition to PO once Ucx return
-UCx, de-escalate atb to po when sensi's return
-Follow white ocunt, improving
Factor V Leiden
-contineu xarelto
Anticipated Discharge: Within 24 hours
Subjective/Interval History
-
Date of Service: January 03, 2024
seen and examined.
no furhter back pain. now with abd pain
ucx pending
Objective Data
-
Labs:
Laboratory Results
01/03/24
04:15
WBC 10.2
Hgb 10.9 L
Hct 32.2 L
Plt Count 176 D
Sodium 141
Potassium 3.8
Chloride 110 H
Carbon Dioxide 25
BUN 15
Creatinine 1.0
Glucose 93
Calcium 8.4
Vital Signs:
Vital Signs
Temp Pulse Resp BP Pulse Ox
98.8 F 76 16 126/59 96
01/03/24 07:00 01/03/24 07:00 01/03/24 07:00 01/03/24 07:00 01/03/24 07:00
I&O
01/02/24 01/03/24 01/04/24
06:59 06:59 06:59
Intake Total 2870 / 2870
Balance 2870 / 2870
[2024-01-03] MEDS: NSS IV (14:41)
[2024-01-03 15:20] VITALS: BP 102/57
[2024-01-03 23:30] VITALS: BP 90/50
[2024-01-04 00:20] VITALS: BP 80/45
[2024-01-04] MEDS: NSS 500 IV (00:52)
--- NOTE | 2024-01-04 01:53 | PTCARENOTE ---
0023 - rechecked BP manually, was 80/45, pt asymptomatic. 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 New order placed for 500mL NSS bolus.
[2024-01-04 03:25] VITALS: BP 102/60
[2024-01-04] MEDS: NSS 1000 IV (03:45)
[2024-01-04] MEDS: ROXICODONE 5 MG PO (03:46)
[2024-01-04] MEDS: ZOSYN 50 IV ×4 (05:19→23:02)
[2024-01-04] MEDS: DILAUDID 0.5 MG IV ×2 (05:46→15:15)
[2024-01-04 07:15] VITALS: BP 137/67
[2024-01-04] MEDS: XARELTO 20 MG PO (09:10)
[2024-01-04] MEDS: LYRICA 50 MG PO ×2 (09:10→19:56)
--- NOTE | 2024-01-04 10:25 | W.PN.HOSP.TC ---
Today's Communication/Plan
-
Assessment / Plan
Assessment / Plan
Imaging
CTAP
IMPRESSION:
Nonobstructing right renal calculi.
No findings to suggest obstructive uropathy bilaterally.
Mild colonic diverticulosis.
Unremarkable appendix.
Prior gastric bypass surgery.
Possible mild gallbladder wall thickening. Please see separate concurrent Abdominal ultrasound report.
Abdominal ultrasound
IMPRESSION: Cholelithiasis with borderline gallbladder wall thickening. Negative sonographic Tomas's sign although may be limited by patient medication. No findings to suggest biliary tract dilatation. Some mild gallbladder adenomyomatosis cannot
be excluded.
Spleen not well visualized.
Small nonobstructing right renal calculus.
HIDA scan
IMPRESSION:
Findings indicate patent cystic and common bile ducts.
Physical Exam
NAD, resting comfortably in bed
Scleral anicteric
Moist mucous membranes
No JVD
CTA bilateral
Normal S1-S2 no murmurs
Soft right upper quadrant tenderness nondistended bowel sounds active
CVA tenderness +, right sided
No peripheral pitting edema
Moves extremities spontaneously
AAOx3
Assessment and Plan
UTI (?pyelo as there is Rt CVA tenderness) vs gallbladder pathology
-HIDA scan as above
-Regular diet
-Surgery following, no indication for OR
-IV Atb transition to PO once Ucx return
-UCx, de-escalate atb to po when sensi's return
-Follow white ocunt, improving
Factor V Leiden
-contineu xarelto
Right upper quadrant tenderness, scan suggestive of cholelithiasis without gallbladder distention/cholecystitis as this was not reported on HIDA scan
-Surgery previously following
-As there is pain at the right upper quadrant on deep palpation will ask surgery to reevaluate
If no plans for surgical intervention then we will plan to discharge home as she is tolerating diet without nausea vomiting and no further urinary tract symptoms.
Will plan to complete total of 7 days of antibiotics for pyelonephritis
Anticipated Discharge: Within 24 hours
Subjective/Interval History
-
Date of Service: January 04, 2024
Seen and examined. No new complaints. No acute overnight events.
States that she has abdominal pain this morning improved with eating worse but not eating
No more back pain no burning with urination no urinary frequency
Objective Data
-
Labs:
Laboratory Results
01/04/24
06:00
WBC Pending
Hgb Pending
Hct Pending
Plt Count Pending
Sodium Pending
Potassium Pending
Chloride Pending
Carbon Dioxide Pending
BUN Pending
Creatinine Pending
Glucose Pending
Calcium Pending
Vital Signs:
Vital Signs
Temp Pulse Resp BP Pulse Ox
97.9 F 85 14 137/67 100
01/04/24 07:15 01/04/24 07:15 01/04/24 07:15 01/04/24 07:15 01/04/24 07:15
I&O
01/03/24 01/04/24 01/05/24
06:59 06:59 06:59
Intake Total 2870 / 2870 2430 / 2430
Balance 2870 / 2870 2430 / 2430
--- NOTE | 2024-01-04 12:05 | W.DCSUMMARY ---
Discharge Summary
Discharge Data
Date of Admission: 01/02/24
Date of Discharge: 01/04/24
-
Pending Results: No
Hospital Course
38F history of TIA migraines gastric sleeve factor V Leyden, anxiety presents with right-sided flank pain, abdominal pain presented with right sided flank pain, urinary frequency and abdominal pain. CTAP completed in the ED showed gallbladder wall
thickening, abdominal ultrasound completed. Evaluated by surgery that recommened HIDA scan which showed opened cystic and common bile ducts. General surgery did not believe this was the cause of the pain therefore, no surgery was indicated at this
time. Due to the urinary frequency with the elevated white count, urine analysis was completed that was consistent with UTI. CTAP did not show kidney inflammation. Antibiotics started. Urine culture growth was likely contaminated as it grew out
mixed olimpia and was not repeat as already was on antiobiotics. Therefore, will complete a total of 7days of antibiotics for pyelonephritis.
Outpatient General surgery follow up
Outpatient Urology follow up
CTAP
IMPRESSION:
Nonobstructing right renal calculi.
No findings to suggest obstructive uropathy bilaterally.
Mild colonic diverticulosis.
Unremarkable appendix.
Prior gastric bypass surgery.
Possible mild gallbladder wall thickening. Please see separate concurrent Abdominal ultrasound report.
Abdominal ultrasound
IMPRESSION: Cholelithiasis with borderline gallbladder wall thickening. Negative sonographic Tomas's sign although may be limited by patient medication. No findings to suggest biliary tract dilatation. Some mild gallbladder adenomyomatosis cannot
be excluded.
Spleen not well visualized.
Small nonobstructing right renal calculus.
HIDA scan
IMPRESSION:
Findings indicate patent cystic and common bile ducts.
Discharge Plan
-
Patient Disposition: Home (Routine Discharge)
Discharge Diagnosis/Procedures: UTI
Condition: Good
Diet: As tolerated
Activity: As tolerated
Activity Restrictions/Additional Instructions:
Presented with right sided flank pain, urinary frequency and abdominal pain. CTAP completed in the ED showed gallbladder wall thickening, abdominal ultrasound completed. Evaluated by surgery that recommened HIDA scan which showed opened cystic and
common bile ducts. General surgery did not believe this was the cause of the pain therefore, no surgery was indicated at this time. Due to the urinary frequency with the elevated white count, urine analysis was completed that was consistent with
UTI. CTAP did not show kidney inflammation. Antibiotics started. Urine culture growth was likely contaminated as it grew out mixed olimpia and was not repeat as already was on antiobiotics. Therefore, will complete a total of 7days of antibiotics for
pyelonephritis.
Outpatient General surgery follow up
Outpatient Urology follow up
CTAP
IMPRESSION:
Nonobstructing right renal calculi.
No findings to suggest obstructive uropathy bilaterally.
Mild colonic diverticulosis.
Unremarkable appendix.
Prior gastric bypass surgery.
Possible mild gallbladder wall thickening. Please see separate concurrent Abdominal ultrasound report.
Abdominal ultrasound
IMPRESSION: Cholelithiasis with borderline gallbladder wall thickening. Negative sonographic Tomas's sign although may be limited by patient medication. No findings to suggest biliary tract dilatation. Some mild gallbladder adenomyomatosis cannot
be excluded.
Spleen not well visualized.
Small nonobstructing right renal calculus.
HIDA scan
IMPRESSION:
Findings indicate patent cystic and common bile ducts.
Referrals:
Mike Tiwari MD [Active] - in two to four weeks
Chiquita Thompson DO [Family Provider] -
Prescriptions:
New
cefpodoxime 200 mg tablet
200 mg PO BID 5 Days Qty: 10 0RF
Continued
Adderall XR
40 mg PO DAILY
pregabalin [Lyrica] 50 mg Capsule
50 mg PO BID
Xarelto 20 mg Tablet
20 mg PO DAILY
Discharge Orders:
Discharge Patient (As Directed); Ordered 01/04/24
Ordered By: Tanner Banda
Discharge Date and Time
Print Language: UKRAINIAN
--- NOTE | 2024-01-04 12:28 | CM ---
Case management following for discharge planning
Pt for discharge today
Reports has ride home with family member
Plan - anticipate home no needs
[2024-01-04 14:43] VITALS: BP 99/63
--- NOTE | 2024-01-04 15:07 | W.PN.GS2 ---
Today's Communication / Plan
-
repeat imaging/labs
Assessment / Plan
-
38-year-old female with PMH of factor V Leiden (on Xarelto), CVA November 2022 s/p endovascular embolectomy, migraines, anxiety, kidney stones, elevated BMI s/p gastric sleeve who presented with right flank/back pain with mild RUQ tenderness
associated with nausea and vomiting x 1; in the ED. Normal LFTs.
Leukocytosis present initially but resolved on abx. UA concerning for UTI confirmed with +ecoli in the urine cx and has been on abx for treatment while inpatient
CT on admission showing overall normal findings, but dilated gallbladder with questionable thickening. RUQ U/S on admission with gallstones and borderline thickening, no pericholecystic fluid, negative Tomas's
A HIDA was done for further evaluation and was normal
Asked to see patient again today as pain pattern has changed. RUQ pain worsening with resolution of flank pain.
--Repeat labs (CMP, CBC)
--Repeat US
--NPO for US
--Hold Xarelto
--Will follow
Subjective Data
-
Date of Service: January 04, 2024
Patient seen and examined at bedside. Reports pain to right flank has resolved but now having worsening pain to the RUQ. Denies n/v. But overall feeling worse than admission.
Objective Data
-
Intake and Output
01/03/24 01/04/24 01/05/24
06:59 06:59 06:59
Intake Total 2870 / 2870 2430 / 2430
Balance 2870 / 2870 2430 / 2430
Intake:
Oral fluids 1140 / 1140 1020 / 1020
IV fluids (Total) 1630 / 1630 1310 / 1310
IV piggybacks 100 / 100 100 / 100
Other:
Number of approximated MODERATE 3
amounts of urine
Number of approximated LARGE 2
amounts of urine
How many times incontinent 3
MODERATE amount urine
Vital Signs
Temp Pulse Resp BP Pulse Ox
97.9 F 85 14 137/67 100
01/04/24 07:15 01/04/24 07:15 01/04/24 07:15 01/04/24 07:15 01/04/24 08:00
Calcium 8.4 mg/dl (8.4-10.2) 01/03/24 04:15
Total Bilirubin 0.2 mg/dl (0.2-1.3) 01/02/24 00:42
Direct Bilirubin 0.1 mg/dl (0.0-0.4) 01/02/24 00:42
AST 22 U/L (14-36) 01/02/24 00:42
ALT 21 U/L (0-35) 01/02/24 00:42
Alkaline Phosphatase 61 U/L (38-126) 01/02/24 00:42
Total Protein 7.1 g/dl (6.3-8.2) 01/02/24 00:42
Albumin 4.4 g/dl (3.5-5.0) 01/02/24 00:42
Physical Exam
-
NAD
ABD soft, RUQ markedly tender, nd
--- NOTE | 2024-01-04 15:07 | PTCARENOTE ---
pt had chocolate and vanilla pudding for lunch-pt instructed to remain NPO for ABD US. pt states RUQ is tender. stat labs to be drawn.
will observe.
[2024-01-04] MEDS: FLUSH (NSS) 2 FLUSH IV (15:16)
[2024-01-04 16:55] LABS: Hematocrit 31.5 % (37.0-47.0); Hemoglobin 10.6 g/dL (12.0-16.0); Mean Corp Hgb Conc. 33.7 g/dL (33.0-37.0); Mean Corpuscular Hgb 31.9 pg (27.0-31.0); Mean Corpuscular Volume 94.9 fL (81.0-99.0); Platelet Count 173 10^3/uL (130-400); Red Blood Cell Count 3.32 10^6/uL (4.20-5.40); Red Cell Dist. Width 12.5 % (11.5-14.5); White Blood Cell Count 12.9 10^3/uL (4.8-10.8)
[2024-01-04 17:10] LABS: ALT (SGPT) 15 U/L (0-35); AST (SGOT) 16 U/L (14-36); Alkaline Phosphatase 44 U/L (38-126); Blood Urea Nitrogen 10 mg/dl (7-17); Calcium 8.2 mg/dl (8.4-10.2); Carbon Dioxide 24 mmol/L (22-30); Chloride 107 mmol/L (98-107); Estimated Creatinine Clearance 82 ml/min; Glucose 159 mg/dl (70-99); Sodium 139 mmol/L (135-145); Total Bilirubin 0.3 mg/dl (0.2-1.3); Total Protein 5.3 g/dl (6.3-8.2); eGFR > 60.00
[2024-01-04 17:15] LABS: Albumin 2.8 g/dl (3.5-5.0)
[2024-01-04] MEDS: FLUSH (NSS) 1 FLUSH IV (18:28)
[2024-01-04 23:00] VITALS: BP 97/60
[2024-01-05] MEDS: DILAUDID 0.5 MG IV ×5 (02:41→19:57)
[2024-01-05] MEDS: ZOSYN 50 IV ×4 (05:10→23:54)
[2024-01-05 07:08] VITALS: BP 102/62
[2024-01-05 07:18] LABS: Hematocrit 33.1 % (37.0-47.0); Hemoglobin 11.1 g/dL (12.0-16.0); Mean Corp Hgb Conc. 33.5 g/dL (33.0-37.0); Mean Corpuscular Hgb 30.8 pg (27.0-31.0); Mean Corpuscular Volume 91.9 fL (81.0-99.0); Mean Platelet Volume 9.2 fL (7.4-10.4); Platelet Count 203 10^3/uL (130-400); Red Cell Dist. Width 12.6 % (11.5-14.5); White Blood Cell Count 13.6 10^3/uL (4.8-10.8)
[2024-01-05 07:25] LABS: Blood Urea Nitrogen 8 mg/dl (7-17); Calcium 8.3 mg/dl (8.4-10.2); Carbon Dioxide 24 mmol/L (22-30); Chloride 106 mmol/L (98-107); Estimated Creatinine Clearance 94 ml/min; Glucose 72 mg/dl (70-99); Potassium 3.8 mmol/L (3.5-5.1); Sodium 140 mmol/L (135-145); eGFR > 60.00
--- NOTE | 2024-01-05 08:05 | W.PN.GS2 ---
Today's Communication / Plan
-
-- Laparoscopic cholecystectomy with possible IOC
-- NPO, IVF
-- Abx: Zosyn
-- Continue to hold anticoagulation
Assessment / Plan
-
Patient is a 38 yo F p/w RUQ and symptoms consistent with acute on chronic cholecystitis
WBC elevated, low-grade fevers, previous LFTs and bilirubin normal
Last dose of Xarelto coming up on 24 hours
Persistent signs and symptoms of cholecystitis. Options for management including cholecystectomy versus cholecystostomy tube were considered. The pros and cons of both approaches was discussed. Plan for a laparoscopic cholecystectomy. The
procedure itself, as well as the risks, benefits, and alternatives was discussed. Specifically, we discussed the risks of bleeding, infection, injury to surrounding structures (bowel, bile ducts), CBD injury, need for open procedure. We also
discussed anesthetic risks including DVT, ID, and stroke. We discussed that she is at increased risk for operative for complications as a relates to bleeding and potentially injury to nearby structures given her chronicity of symptoms and active
anticoagulation. Patient acknowledges understanding. All questions answered. Consent signed.
-- Laparoscopic cholecystectomy with possible IOC
-- NPO, IVF
-- Abx: Zosyn
-- Continue to hold anticoagulation
Subjective Data
-
Date of Service: January 05, 2024
Persistent RUQ abdominal pain. Low-grade fevers. No nausea or vomiting. Patient reports that she has been having persistent attacks on an almost daily basis for the past several weeks. She has been taking antacid medications to help alleviate
her symptoms. Previous reports of mild jaundice, she denies any pale stools or tea colored urine.
Objective Data
-
Intake and Output
01/04/24 01/05/24 01/06/24
06:59 06:59 06:59
Intake Total 2430 / 2430 1999
Balance 2430 / 2430 1999
Intake:
Oral fluids 1020 / 1020 1800 / 1800
IV fluids (Total) 1310 / 1310
IV piggybacks 100 / 100 200 / 200
Other:
Number of approximated MODERATE 3 3
amounts of urine
Number of approximated LARGE 2
amounts of urine
Vital Signs
Temp Pulse Resp BP Pulse Ox
98.6 F 86 20 97/60 97
01/04/24 23:00 01/04/24 23:00 01/04/24 23:00 01/04/24 23:00 01/04/24 23:00
Lab Results
01/05/24 04:26
01/05/24 04:26
Calcium 8.3 mg/dl (8.4-10.2) L 01/05/24 04:26
Total Bilirubin 0.3 mg/dl (0.2-1.3) 01/04/24 16:40
Direct Bilirubin 0.1 mg/dl (0.0-0.4) 01/02/24 00:42
AST 16 U/L (14-36) 01/04/24 16:40
ALT 15 U/L (0-35) 01/04/24 16:40
Alkaline Phosphatase 44 U/L (38-126) 01/04/24 16:40
Total Protein 5.3 g/dl (6.3-8.2) L D 01/04/24 16:40
Albumin 2.8 g/dl (3.5-5.0) L D 01/04/24 16:40
Physical Exam
-
Gen: NAD
Abd: soft, tender to palpation in RUQ, positive Tomas's sign, ND, non-peritoneal, prior incisions well healed
--- NOTE | 2024-01-05 08:10 | W.SUR.PREOP ---
Pre-Operative Surgical Note
-
I have examined this patient prior to the performance of the scheduled procedure.
The patient's condition is unchanged from the time of the current History and
Physical and the patient is able to undergo the scheduled procedure.
[2024-01-05] MEDS: LYRICA PO (08:32)
[2024-01-05] MEDS: ROXICODONE 10 MG PO ×4 (09:36→23:04)
--- NOTE | 2024-01-05 10:24 | CM ---
Case management following for discharge planning
Pt for OR today for Laparoscopic cholecystectomy with possible IOC
NPO
IV antibiotics
Plan - anticipate home no needs
--- NOTE | 2024-01-05 14:35 | W.PN.HOSP.TC ---
Today's Communication/Plan
-
for lap nilay
continue abx
NPO for now
Assessment / Plan
Assessment / Plan
CT A/P
Nonobstructing right renal calculi. No findings to suggest obstructive uropathy bilaterally. Mild colonic diverticulosis.
Unremarkable appendix. Prior gastric bypass surgery. Possible mild gallbladder wall thickening. Please see separate concurrent Abdominal ultrasound report.
Abdominal ultrasound
Cholelithiasis with borderline gallbladder wall thickening. Negative sonographic Tomas's sign although may be limited by patient medication. No findings to suggest biliary tract dilatation. Some mild gallbladder adenomyomatosis cannot be excluded.
Spleen not well visualized.
Small nonobstructing right renal calculus.
HIDA scan
Findings indicate patent cystic and common bile ducts.

1. Chronic cholecystitis
-continues to have RUQ pain
-Abd US and HIDA scan as above
-GS planning to take patient to OR today based on OR availability
-Maintain on zosyn for now
-Pain medication adjusted to oxycodone 5/10mg with IV Dilaudid breakthrough
2. Factor V Leiden
-continue xarelto post surgery
3. ADD
- maintain on Adderall xr if family brings the supply in.
Full code
Xareltoi
Anticipated Discharge: 24 - 48 hours
Subjective/Interval History
-
Date of Service: January 05, 2024
Continues to have right upper quadrant abdominal pain
Denies of having any nausea or vomiting
Afebrile overnight
Objective Data
-
Labs:
Laboratory Results
01/05/24
04:26
WBC 13.6 H
Hgb 11.1 L
Hct 33.1 L
Plt Count 203
Sodium 140
Potassium 3.8
Chloride 106
Carbon Dioxide 24
BUN 8
Creatinine 0.7
Glucose 72
Calcium 8.3 L
Vital Signs:
Vital Signs
Temp Pulse Resp BP Pulse Ox
98.4 F 79 18 102/62 94
01/05/24 07:08 01/05/24 07:08 01/05/24 07:08 01/05/24 07:08 01/05/24 07:08
I&O
01/04/24 01/05/24 01/06/24
06:59 06:59 06:59
Intake Total 2430 / 2430 1999
Balance 2430 / 2430 1999
Review of Systems
-
Respiratory: Reports No Symptoms
Cardiac: Reports No Symptoms
Abdomen/GI: Reports No Symptoms
Physical Exam
-
General: No Apparent Distress and Comfortable
HEENT: Negative Oxygen
Respiratory: Clear to Auscultation
Cardiac: Regular Rhythm and S1/S2; Negative Murmur or Rub
GI: Soft, Nondistended, Normal Bowel Sounds and Tender (RUQ)
Musculoskeletal: No Edema
Neuro: Awake, Alert, Oriented, No Motor Deficits and Nonfocal/Grossly Intact
Psych: Calm
[2024-01-05 15:30] VITALS: BP 112/71
[2024-01-05] MEDS: LYRICA 50 MG PO (19:57)
[2024-01-05] MEDS: PEPCID 20 MG PO (20:05)
[2024-01-05 23:42] VITALS: BP 108/67
[2024-01-06] VITALS (16 sets, daily range): BP systolic 5–135; BP diastolic 50–84
[2024-01-06] MEDS: ATIVAN 0.25 MG PO (02:48)
[2024-01-06] MEDS: ROXICODONE 10 MG PO (04:27)
[2024-01-06] MEDS: ZOSYN 50 IV ×3 (05:13→18:12)
[2024-01-06 06:27] LABS: Hematocrit 31.2 % (37.0-47.0); Hemoglobin 10.6 g/dL (12.0-16.0); Mean Corpuscular Hgb 31.5 pg (27.0-31.0); Mean Corpuscular Volume 92.6 fL (81.0-99.0); Mean Platelet Volume 9.2 fL (7.4-10.4); Platelet Count 188 10^3/uL (130-400); Red Blood Cell Count 3.37 10^6/uL (4.20-5.40); Red Cell Dist. Width 12.4 % (11.5-14.5); White Blood Cell Count 9.3 10^3/uL (4.8-10.8)
[2024-01-06 06:52] LABS: Blood Urea Nitrogen 7 mg/dl (7-17); Calcium 8.2 mg/dl (8.4-10.2); Carbon Dioxide 26 mmol/L (22-30); Chloride 105 mmol/L (98-107); Estimated Creatinine Clearance 82 ml/min; Glucose 74 mg/dl (70-99); Sodium 139 mmol/L (135-145); eGFR > 60.00
[2024-01-06 06:58] LABS: Potassium 3.7 mmol/L (3.5-5.1)
[2024-01-06] MEDS: LYRICA 50 MG PO ×2 (08:01→20:33)
--- NOTE | 2024-01-06 11:22 | CM ---
Case management following for discharge planning
Chart reviewed
Pt for OR today for Laparoscopic cholecystectomy with possible IOC
NPO
Plan - anticipate home no needs
--- NOTE | 2024-01-06 12:04 | W.IMMPOSTOP ---
Addendum entered and electronically signed by Mike Emerson MD 01/06/24 12:11:
The assistance of MEREDITH Nieves was required due to the complexity of the procedure. During the procedure she assisted with retraction, resection, and closure of the wound.
Addendum entered and electronically signed by Mike Emerson MD 01/06/24 12:10:
Plan:
-- OK to resume Xarelto 48 hours post-op if drain output and labs OK
-- Abx: for 7 days post-op given fevers pre-op and purulence within GB
-- Tentative plan for RONALDO removal and DC at the earliest on Thursday
Original Note:
Surgical Immed Post Op Note
-
Primary Surgeon: Ki
Assisting Surgeon: MEREDITH Main
Pre-op Diagnosis: Acute cholecystitis
Post-op Diagnosis: Acute cholecystitis
Procedure Performed: Laparoscopic cholecystectomy with IOC
Anesthesia Type: General
Specimen / Cultures:
1. Gallbladder
Estimated Blood Loss: 23 cc
Complications: None
Operative Findings:
1. Acutely inflamed, thickened wall GB, purulence within lumen, acute on chronic inflammation
2. IOC with anatomy confirmed, unable to completely fill proximal radicals due to preferential flow
3. Inferior 1/2 of GB take off hepatic plate prior to taking cystic duct with 30 mm purple load stapler, artery with clips
4. 19 Fr Cristofer drain into operative field
[2024-01-06] MEDS: DEMEROL 12.5 MG IV (12:14)
[2024-01-06] MEDS: DILAUDID 0.5 MG IV ×2 (12:35→18:06)
--- NOTE | 2024-01-06 13:14 | PTCARENOTE ---
pt received from PACU back to Room 2102 via bed. pt drowsy but arouses easily. pt educated on post op plan of care. tolerated sips of water. call stephens in reach. abdominal incisions ONELIA w/adhesive, RLQ RONALDO drain patent w/serosanguineous output
noted. will observe.
--- NOTE | 2024-01-06 14:19 | W.PN.HOSP.TC ---
Today's Communication/Plan
-
continue post op care
continue abx
diet per GS
Assessment / Plan
Assessment / Plan
CT A/P
Nonobstructing right renal calculi. No findings to suggest obstructive uropathy bilaterally. Mild colonic diverticulosis.
Unremarkable appendix. Prior gastric bypass surgery. Possible mild gallbladder wall thickening. Please see separate concurrent Abdominal ultrasound report.
Abdominal ultrasound
Cholelithiasis with borderline gallbladder wall thickening. Negative sonographic Tomas's sign although may be limited by patient medication. No findings to suggest biliary tract dilatation. Some mild gallbladder adenomyomatosis cannot be excluded.
Spleen not well visualized.
Small nonobstructing right renal calculus.
HIDA scan
Findings indicate patent cystic and common bile ducts.

1. Chronic cholecystitis
-continues to have RUQ pain
-Abd US and HIDA scan as above
-Maintain on zosyn for now
-Pain medication adjusted to oxycodone 5/10mg with IV Dilaudid breakthrough
-s/p lap cholecystectomy today
-Ronaldo drain in palce.
2. Factor V Leiden
-resume xaerlto in 48hrs per GS
3. ADD
- maintain on Adderall xr if family brings the supply in.
Full code
Xarelto
Anticipated Discharge: > 48 hours
Subjective/Interval History
-
Date of Service: January 06, 2024
patient seen postoperatively in the room
complaining of some right sided pain
no n/v
Objective Data
-
Labs:
Laboratory Results
01/06/24
04:24
WBC 9.3
Hgb 10.6 L
Hct 31.2 L
Plt Count 188
Sodium 139
Potassium 3.7
Chloride 105
Carbon Dioxide 26
BUN 7
Creatinine 0.8
Glucose 74
Calcium 8.2 L
Vital Signs:
Vital Signs
Temp Pulse Resp BP Pulse Ox
98.6 F 72 15 109/69 95
01/06/24 13:09 01/06/24 13:09 01/06/24 13:09 01/06/24 13:09 01/06/24 13:09
I&O
01/05/24 01/06/24 01/07/24
06:59 06:59 06:59
Intake Total 1999 580 / 580
Output Total 5 5
Balance 1999 580 / 580 -5 / -5
Review of Systems
-
Unable to obtain full review of systems at this time due to: Acuity
Physical Exam
-
General: No Apparent Distress and Comfortable
HEENT: Negative Oxygen
Respiratory: Clear to Auscultation
Cardiac: Regular Rhythm and S1/S2; Negative Murmur or Rub
GI: Tender (RUQ) and Other (RUQ RONALDO drain in place)
Musculoskeletal: No Edema
Neuro: Awake, Alert, Oriented, No Motor Deficits and Nonfocal/Grossly Intact
Psych: Calm
[2024-01-06] MEDS: ROXICODONE 5 MG PO ×2 (14:49→20:33)
[2024-01-06] MEDS: FLUSH (NSS) 2 FLUSH IV (18:08)
[2024-01-06] MEDS: LOVENOX 40 MG SC (18:12)
[2024-01-06] MEDS: DESYREL 50 MG PO (20:33)
[2024-01-07] MEDS: ZOSYN 50 IV ×5 (00:08→23:35)
[2024-01-07] MEDS: DILAUDID 0.5 MG IV ×4 (00:08→23:57)
[2024-01-07 03:30] VITALS: BP 117/68
[2024-01-07] MEDS: ROXICODONE 5 MG PO ×4 (04:19→21:24)
[2024-01-07] MEDS: TORADOL 10 MG IV (04:41)
[2024-01-07 06:10] LABS: Hematocrit 31.9 % (37.0-47.0); Hemoglobin 11.1 g/dL (12.0-16.0); Mean Corp Hgb Conc. 34.8 g/dL (33.0-37.0); Mean Corpuscular Hgb 30.6 pg (27.0-31.0); Mean Corpuscular Volume 87.9 fL (81.0-99.0); Mean Platelet Volume 9.7 fL (7.4-10.4); Platelet Count 187 10^3/uL (130-400); Red Blood Cell Count 3.63 10^6/uL (4.20-5.40); Red Cell Dist. Width 12.2 % (11.5-14.5); White Blood Cell Count 10.9 10^3/uL (4.8-10.8)
[2024-01-07 06:31] LABS: Blood Urea Nitrogen 13 mg/dl (7-17); Calcium 8.5 mg/dl (8.4-10.2); Carbon Dioxide 24 mmol/L (22-30); Chloride 104 mmol/L (98-107); Estimated Creatinine Clearance 94 ml/min; Glucose 120 mg/dl (70-99); Potassium 4.2 mmol/L (3.5-5.1); Sodium 139 mmol/L (135-145); eGFR > 60.00
[2024-01-07 07:17] VITALS: BP 98/62
--- NOTE | 2024-01-07 07:37 | W.PN.GS2 ---
Today's Communication / Plan
-
-- LFD
-- Pain control: Tylenol, Toradol, Oxycodone
-- HLIV
-- Abx: Zosyn, plan for 5 days Augmentin on DC
-- DVT: Lovenox, OK for Hep gtt, no PO anticoagulation for 48 your post-op
-- Tentative plan for DC RONALDO and DC tomorrow
Assessment / Plan
-
Patient is a 38 yo F p/w RUQ and symptoms consistent with acute on chronic cholecystitis
POD#1 s/p laparoscopic cholecystectomy with IOC
Recovering well. No major postoperative concerns. Plan to monitor in the hospital setting today for additional IV antibiotics and treatment. Plan for discharge tomorrow. Okay to resume oral therapeutic anticoagulation 48 hours postoperatively
(01/07).
-- LFD
-- Pain control: Tylenol, Toradol, Oxycodone
-- HLIV
-- Abx: Zosyn, plan for 5 days Augmentin on DC
-- DVT: Lovenox, OK for Hep gtt, no PO anticoagulation for 48 your post-op
-- Tentative plan for DC RONALDO and DC tomorrow
Subjective Data
-
Date of Service: January 07, 2024
No major complaints. Feels better. Does report some abdominal pain. No nausea or vomiting. Afebrile.
Objective Data
-
Intake and Output
01/06/24 01/07/24 01/08/24
06:59 06:59 06:59
Intake Total 580 / 580 820 / 820
Output Total 60 / 60
Balance 580 / 580 760 / 760
Intake:
Oral fluids 480 / 480 720 / 720
IV fluids (Total) 100 / 100
IV piggybacks 100 / 100
Output:
Drain Output (Total) 60 / 60
Right Lower Abdomen Ruddy- 60 / 60
Crowe
Other:
Number of approximated SMALL 1
amounts of urine
Number of approximated MODERATE 3 6
amounts of urine
Vital Signs
Temp Pulse Resp BP Pulse Ox
98.0 F 53 16 117/68 100
01/07/24 03:30 01/07/24 03:30 01/07/24 03:30 01/07/24 03:30 01/07/24 03:30
Lab Results
01/07/24 04:15
01/07/24 04:15
Calcium 8.5 mg/dl (8.4-10.2) 01/07/24 04:15
Total Bilirubin 0.3 mg/dl (0.2-1.3) 01/04/24 16:40
Direct Bilirubin 0.1 mg/dl (0.0-0.4) 01/02/24 00:42
AST 16 U/L (14-36) 01/04/24 16:40
ALT 15 U/L (0-35) 01/04/24 16:40
Alkaline Phosphatase 44 U/L (38-126) 01/04/24 16:40
Total Protein 5.3 g/dl (6.3-8.2) L D 01/04/24 16:40
Albumin 2.8 g/dl (3.5-5.0) L D 01/04/24 16:40
Physical Exam
-
Gen: NAD
Abd: soft, mild tenderness, ND, non-peritoneal, incisions c/d/i - no erythema, ecchymosis or drainage
[2024-01-07] MEDS: LYRICA 50 MG PO ×2 (08:18→19:43)
[2024-01-07 08:28] LABS: ALT (SGPT) 24 U/L (0-35); AST (SGOT) 31 U/L (14-36); Albumin 3.3 g/dl (3.5-5.0); Alkaline Phosphatase 62 U/L (38-126); Direct Bilirubin 0.1 mg/dl (0.0-0.4); Total Bilirubin 0.2 mg/dl (0.2-1.3)
--- NOTE | 2024-01-07 11:13 | W.PN.HOSP.TC ---
Today's Communication/Plan
-
see note
possible d/c tomorrow
Assessment / Plan
Assessment / Plan
CT A/P
Nonobstructing right renal calculi. No findings to suggest obstructive uropathy bilaterally. Mild colonic diverticulosis.
Unremarkable appendix. Prior gastric bypass surgery. Possible mild gallbladder wall thickening. Please see separate concurrent Abdominal ultrasound report.
Abdominal ultrasound
Cholelithiasis with borderline gallbladder wall thickening. Negative sonographic Tomas's sign although may be limited by patient medication. No findings to suggest biliary tract dilatation. Some mild gallbladder adenomyomatosis cannot be excluded.
Spleen not well visualized.
Small nonobstructing right renal calculus.
HIDA scan
Findings indicate patent cystic and common bile ducts.

1. Chronic cholecystitis
-continues to have RUQ pain
-Abd US and HIDA scan as above
-Maintain on zosyn for now
-s/p lap cholecystectomy yesterday
-Ronaldo drain in palce and output of 60ml overnight
-GS planning to removed RONALDO drain potentially tomorrow
-Stop IV dilaudid, maintain on oral oxy/iv toradol for pain control
2. Factor V Leiden
-resume xaerlto from tomorrow morning
3. ADD
- maintain on Adderall xr if family brings the supply in.
Full code
Xarelto
Anticipated Discharge: Within 24 hours
Subjective/Interval History
-
Date of Service: January 07, 2024
continues to have some right sided discomfort
RONALDO draining serosanguinous fluid
afebrile in night
Objective Data
-
Labs:
Laboratory Results
01/07/24 01/07/24
04:15 07:34
WBC 10.9 H
Hgb 11.1 L
Hct 31.9 L
Plt Count 187
Sodium 139
Potassium 4.2
Chloride 104
Carbon Dioxide 24
BUN 13
Creatinine 0.7
Glucose 120 H
Calcium 8.5
Total Bilirubin 0.2 Cancelled
AST 31 Cancelled
ALT 24 Cancelled
Alkaline Phosphatase 62 Cancelled
Vital Signs:
Vital Signs
Temp Pulse Resp BP Pulse Ox
98 F 60 15 98/62 99
01/07/24 07:17 01/07/24 07:17 01/07/24 07:17 01/07/24 07:17 01/07/24 08:00
I&O
01/06/24 01/07/24 01/08/24
06:59 06:59 06:59
Intake Total 580 / 580 820 / 820
Output Total 60 / 60
Balance 580 / 580 760 / 760
Review of Systems
-
Respiratory: Reports No Symptoms
Cardiac: Reports No Symptoms
Abdomen/GI: Reports Abdominal Pain; Denies Nausea or Vomiting
Physical Exam
-
General: No Apparent Distress and Comfortable
HEENT: Negative Oxygen
Respiratory: Clear to Auscultation
Cardiac: Regular Rhythm and S1/S2; Negative Murmur or Rub
GI: Tender (RUQ) and Other (RUQ RONALDO drain in place)
Musculoskeletal: No Edema
Neuro: Awake, Alert, Oriented, No Motor Deficits and Nonfocal/Grossly Intact
Psych: Calm
[2024-01-07 11:16] VITALS: BP 99/52
--- NOTE | 2024-01-07 11:29 | CM ---
Case management following for discharge planning
Chart reviewed
POD#1 s/p laparoscopic cholecystectomy with IOC
Remains on antibiotics
Pain management
Pt sleeping
Plan - anticipate home no needs
[2024-01-07 14:59] VITALS: BP 96/61
[2024-01-07] MEDS: FLUSH (NSS) 2 FLUSH IV (16:32)
[2024-01-07] MEDS: LOVENOX 40 MG SC (18:26)
[2024-01-07] MEDS: FLUSH (NSS) 1 FLUSH IV (18:27)
[2024-01-07 22:54] VITALS: BP 105/55
[2024-01-08] MEDS: ZOSYN 50 IV (05:06)
[2024-01-08] MEDS: ROXICODONE 5 MG PO (05:07)
[2024-01-08] MEDS: TORADOL 10 MG IV (06:18)
[2024-01-08 06:21] LABS: Hematocrit 31.1 % (37.0-47.0); Hemoglobin 10.7 g/dL (12.0-16.0); Mean Corp Hgb Conc. 34.4 g/dL (33.0-37.0); Mean Corpuscular Hgb 30.9 pg (27.0-31.0); Mean Corpuscular Volume 89.9 fL (81.0-99.0); Mean Platelet Volume 9.2 fL (7.4-10.4); Platelet Count 197 10^3/uL (130-400); Red Blood Cell Count 3.46 10^6/uL (4.20-5.40); Red Cell Dist. Width 12.7 % (11.5-14.5); White Blood Cell Count 7.3 10^3/uL (4.8-10.8)
[2024-01-08 06:44] LABS: Blood Urea Nitrogen 16 mg/dl (7-17); Calcium 8.4 mg/dl (8.4-10.2); Carbon Dioxide 27 mmol/L (22-30); Chloride 103 mmol/L (98-107); Estimated Creatinine Clearance 82 ml/min; Glucose 91 mg/dl (70-99); Potassium 3.9 mmol/L (3.5-5.1); Sodium 142 mmol/L (135-145); eGFR > 60.00
[2024-01-08 07:10] VITALS: BP 95/59
[2024-01-08] MEDS: LYRICA 50 MG PO (08:37)
[2024-01-08] MEDS: XARELTO 20 MG PO (08:37)
--- NOTE | 2024-01-08 08:41 | W.PN.GS2 ---
Today's Communication / Plan
-
dispo planning
Assessment / Plan
-
Patient is a 38 yo F p/w RUQ and symptoms consistent with acute on chronic cholecystitis
POD#2 s/p laparoscopic cholecystectomy with IOC
Recovering well. No major postoperative concerns. RONALDO removed at bedside (minimal serous outputs noted)
IV abx until d/c then would transition to Po upon d/c for total of 7 days post op
Okay to resume oral therapeutic anticoagulation
-- LFD
-- Pain control: Tylenol, ibuprofen, Oxycodone (increased dose). Transition off IV analgesics.
-- Abx: Zosyn, plan for 5 days Augmentin on DC
-- Xarelto to resume today
-- Dispo planning
Ok for discharge from surgical standpoint
Subjective Data
-
Date of Service: January 08, 2024
Patient seen and examined at bedside. Complains of pain at drain site. Notes she is still requiring IV narcotics as the oxycodone 5mg is not decreasing her pain well, she notes that she usually needs 10mg strength when she takes this medication.
Denies n/v. Tolerating diet.
Objective Data
-
Intake and Output
01/07/24 01/08/24 01/09/24
06:59 06:59 06:59
Intake Total 820 / 820 1390 / 1390
Output Total 60 / 60 20 / 20
Balance 760 / 760 1370 / 1370
Intake:
Oral fluids 720 / 720 1290 / 1290
IV fluids (Total) 100 / 100 100 / 100
Output:
Drain Output (Total) 60 / 60 20 / 20
Right Lower Abdomen Ruddy- 60 / 60 20 / 20
Crowe
Other:
Number of approximated MODERATE 6 2
amounts of urine
Vital Signs
Temp Pulse Resp BP Pulse Ox
98.4 F 58 15 95/59 99
01/08/24 07:10 01/08/24 07:10 01/08/24 07:10 01/08/24 07:10 01/08/24 07:10
Lab Results
01/08/24 05:21
01/08/24 05:21
Calcium 8.4 mg/dl (8.4-10.2) 01/08/24 05:21
Total Bilirubin Cancelled 01/07/24 07:34
Direct Bilirubin Cancelled 01/07/24 07:34
AST Cancelled 01/07/24 07:34
ALT Cancelled 01/07/24 07:34
Alkaline Phosphatase Cancelled 01/07/24 07:34
Total Protein Cancelled 01/07/24 07:34
Albumin Cancelled 01/07/24 07:34
Physical Exam
-
Gen: NAD
Abd: soft, mild tenderness, ND, non-peritoneal, incisions c/d/i - no erythema, ecchymosis or drainage
RONALDO with minimal serous output
[2024-01-08] MEDS: ROXICODONE 10 MG PO (09:38)
--- NOTE | 2024-01-08 11:26 | CM ---
Met with pt at bedside
Reports feeling better - possible discharge for today
Has ride home at discharge with family
Plan - anticipate home no needs when medically ready
[2024-01-08] MEDS: ZOSYN IV (11:39)
[2024-01-08 11:50] VITALS: BP 126/98
--- NOTE | 2024-01-08 13:42 | W.PN.HOSP.TC ---
Today's Communication/Plan
-
d/c home
Assessment / Plan
Assessment / Plan
CT A/P
Nonobstructing right renal calculi. No findings to suggest obstructive uropathy bilaterally. Mild colonic diverticulosis.
Unremarkable appendix. Prior gastric bypass surgery. Possible mild gallbladder wall thickening. Please see separate concurrent Abdominal ultrasound report.
Abdominal ultrasound
Cholelithiasis with borderline gallbladder wall thickening. Negative sonographic Tomas's sign although may be limited by patient medication. No findings to suggest biliary tract dilatation. Some mild gallbladder adenomyomatosis cannot be excluded.
Spleen not well visualized.
Small nonobstructing right renal calculus.
HIDA scan
Findings indicate patent cystic and common bile ducts.

1. Chronic cholecystitis
-continues to have RUQ pain
-Abd US and HIDA scan as above
-Maintain on zosyn for now
-s/p lap cholecystectomy yesterday
-Monster drain has been removed
-Ok to discharge on short course of oral abx
2. Factor V Leiden
-xarelto resumed from morning today
3. ADD
- maintain on Adderall xr if family brings the supply in.
Full code
Xarelto
d/c home
Anticipated Discharge: Today
Subjective/Interval History
-
Date of Service: January 08, 2024
pain is better
afebrile
Objective Data
-
Labs:
Laboratory Results
01/08/24
05:21
WBC 7.3
Hgb 10.7 L
Hct 31.1 L
Plt Count 197
Sodium 142
Potassium 3.9
Chloride 103
Carbon Dioxide 27
BUN 16
Creatinine 0.8
Glucose 91
Calcium 8.4
Vital Signs:
Vital Signs
Temp Pulse Resp BP Pulse Ox
97.8 F 63 15 126/98 98
01/08/24 11:50 01/08/24 11:50 01/08/24 11:50 01/08/24 11:50 01/08/24 11:50
I&O
01/07/24 01/08/24 01/09/24
06:59 06:59 06:59
Intake Total 820 / 820 1390 / 1390
Output Total 60 / 60 /
Balance 760 / 760 1370 / 1370
Physical Exam
-
General: No Apparent Distress and Comfortable
HEENT: Negative Oxygen
Respiratory: Clear to Auscultation
Cardiac: Regular Rhythm and S1/S2; Negative Murmur
GI: Soft and Nontender
Musculoskeletal: No Edema
Neuro: Awake, Alert, Oriented, No Motor Deficits and Nonfocal/Grossly Intact
Psych: Calm
--- NOTE | 2024-01-10 16:07 | W.DCSUMMARY ---
Discharge Summary
Discharge Data
Date of Admission: 01/02/24
Date of Discharge: 01/08/24
-
Pending Results: No
Hospital Course
Discharging Physician : Dr Earl Banda
Disposition : Home
Primary care physician : Dr Chiquita Thompson
Principal Discharge diagnosis :
Acute on chronic cholecystitis
Chronic Discharge diagnosis :
Factor V Leiden mutation on Xarelto
Attention deficit hyperactivity disorder
Hospital Course :
Patient is a 38-year-old female with mentioned past medical history came to ER with new onset of right-sided flank pain worsening with food intake. Patient had some episodes of nausea and vomiting as well. Initial workup with CT abdomen pelvis in
ER showing patient having nonobstructing right renal calculi and also cholelithiasis with gallbladder wall thickening. Patient was started on symptomatic care and empiric antibiotics and was admitted to [facility] for further evaluation. General
surgery was involved in care and patient had a follow-up HIDA scan which showed intact cystic and common bile ducts. Patient's symptoms did not improve and continued to have pain. General surgery discussed possible plan for or for laparoscopic
cholecystectomy for concern of chronic cholecystitis. Patient was taken to the OR and was found to having inflamed gallbladder with purulent material in the lumen. No bile duct stone noted on intraoperative cholangiogram. Postoperatively patient
was monitored on medical floor and patient had improvement in symptoms in next 48 to 72 hours. A RONALDO drain was placed in the right upper quadrant which was removed before discharge. Patient was provided a short course of antibiotic discharged with
Important imaging findings :
None
Procedure findings :
None
Discharge Plan
-
Patient Disposition: Home (Routine Discharge)
Discharge Diagnosis/Procedures: UTI/acute cholecystitis with laparoscopic cholecystectomy
Condition: Good
Diet: As tolerated
Additional Diets: If you have loose stools after surgery, change to a low fat diet
Activity: No strenuous activity
Additional Activity: Do not lift over 15lbs for the next 2-3 weeks
Bathing Restrictions: OK to Shower
Wound Care: Wash your incisions gently with soap and water. Avoid picking or scrubbing off the glue. It will flake off on its own in 2-3 weeks
Cover the site where your drain was with clean dry gauze and changed daily until drainage no longer noted then ok to leave open to air
Referrals:
Mike Emerson MD [Active] - in two to four weeks
Chiquita Thompson DO [Family Provider] - in one week
Prescriptions:
New
cefpodoxime 200 mg tablet
200 mg PO BID 5 Days Qty: 10 0RF
ibuprofen 600 mg Tablet
600 mg PO Q6HPRN PRN (Reason: moderate pain) Qty: 30 0RF
oxycodone 10 mg Tablet
10 mg PO Q4HPRN PRN (Reason: severe pain) Qty: 15 0RF
Continued
Adderall XR
40 mg PO DAILY
pregabalin [Lyrica] 50 mg Capsule
50 mg PO BID
Xarelto 20 mg Tablet
20 mg PO DAILY
Discharge Orders:
Discharge Patient (As Directed); Ordered 01/08/24
Ordered By: Earl Banda
Discharge Date and Time
Discharge Date/Time: 01/08/24 12:37
Print Language: [place]
== END 2024-01-08 12:37 | disposition home or self-care (01) | DRG 418 ==
LOC: 2 SOUTH 12:17
PROVIDERS: Emergency Medicine; Hospitalist; Registered Nurse; Surgery; ADMITTING PHYSICIAN Surgery; ATTENDING PHYSICIAN Hospitalist; EMERGENCY PHYSICIAN Emergency Medicine; FAMILY PHYSICIAN Family Medicine
PROC: BF141ZZ Fluoroscopy of Gallbladder, Bile Ducts and Pancreatic Ducts using Low Osmolar Contrast (ICD-10-PCS; 2024-01-06)
PROC: 0FT44ZZ Resection of Gallbladder, Percutaneous Endoscopic Approach (ICD-10-PCS; 2024-01-06)
DX: K80.12 Calculus of gallbladder with acute and chronic cholecystitis without obstruction (principal); D68.51 Activated protein C resistance; N12 Tubulo-interstitial nephritis, not specified as acute or chronic; N20.0 Calculus of kidney; K57.30 Diverticulosis of large intestine without perforation or abscess without bleeding; Z98.84 Bariatric surgery status
CPT/HCPCS: 88304; 74176; 74300; 76000; 76700; 76705; 78226; 80048; 80053; 80076; 81003; 81015; 82248; 83690; 84703; 85027; 87086; 96374; 96375; 96376; 99285; A4300; A9537

== ENCOUNTER 2024-07-11 23:04 | Inpatient (IN) | payer OTHER, SELFPAY ==
[2024-07-11] VITALS (17 sets, daily range): BP systolic 82–117; BP diastolic 49–81
--- NOTE | 2024-07-11 16:44 | ED.CVA ---
History of Present Illness
General
Chief Complaint: CVA/TIA Symptoms
Source: patient and family (Son and daughter at the bedside)
Exam Limitations: none
Time Seen by Provider: 07/11/24 16:23
Nursing documentation reviewed up to this point in time: agreed with
Onset of Stroke Symptoms
Onset of symptoms known: No
Time pt last seen normal is known: No
History of Present Illness
History of Present Illness:
The patient is a 39-year-old female with a past medical history of factor V Leyden and stroke, with residual chronic left-sided weakness, who was brought in by a friend as well as her daughter and son for acute confusion and difficulty articulating
words. Her children reports they last saw her at 11 PM last night and she was at her normal baseline. They report that she overslept today and did not wake up until 1 PM which is very unusual for her. They report that when she texted them, the
text messages were not making sense and wrote repeating text messages. They report that when they tried to talk to her, she said things that did not make sense and her speech sounded slurred. Patient reports that she feels slightly confused. She
admits that it is difficult for her to find her words. The family reports that she generally walks slowly without assistance. They reports she has chronic left leg weakness which is mild. They report she is paralyzed in her left arm at baseline.
They report that she always has a mild left facial droop at baseline.
Past History
Past History
ED Past Medical History: Psychiatric (Anxiety) and Other (Factor V Deficiency, gestational diabetes, gastric sleeve)
Social History
Tobacco: Smoker
Alcohol: None
Personal:
Living: with family
Employment: Employed
Family History
Family History: CAD and Other (Breast cancer)
Review of Systems
Review of Systems
Allergies reviewed?: Yes
Unable to obtain full review of systems at this time due to: other (Patient does not want to give history. Appears upset)
Other source history: family
All Other Systems: Not applicable (History is very limited due to patient's poor cooperation. However, she does admit to feeling slightly confused and having difficulty word finding)
Respiratory: Reports no symptoms
ABD/GI: Reports no symptoms
Neurological: Reports other
Phy Exam
Physical Exam
Physical Exam:
Physical Exam
General: Barely interactive. However, fully awake and alert. Somewhat flat affect.
Neck: Poor dentition. Dry mucous membrane
Heart: s1/s2 regular rate and rhythm
Lungs: no acute respiratory distress. clear bilaterally
Abdomen: normal bowel sounds. not tender. no CVAT
Neuro: alert and orientedx3. Slight left facial droop. Chronic left arm paralysis. 5 out of 5 strength in bilateral lower extremities. 5 out of 5 strength in right upper extremity. Extraocular muscles intact. At
times patient has difficulty identifying objects. At times patient has difficulty reading certain words. Speech is comprehensible and sounds mildly slurred
Skin: no rash
Psychiatric: Somewhat uncooperative. Flat affect.
Extremities: no edema. no calf tenderness. negative homans. good distal pulses
Scores
NIH Stroke Score
Level of Consciousness: 0 - Alert
LOC Questions: 0-Answers both correctly
LOC Commands: 0-Performs both correctly
Best Horizontal Gaze: 0-Normal
Visual Luo: 0=Normal, no visual loss
Facial Palsy: 0=Normal, symmetrical
Motor - Right Arm: 0=No drift 10 seconds
Motor - Left Arm: UN=Amputation/jointfusion (Chronic left arm paralysis)
Motor - Right Le-No drift 5 seconds
Motor - Left Le-No drift 5 seconds
Limb Ataxia: 0-Absent
Sensation: 0-Normal
Best Language: 1-Mild aphasia
Dysarthria: 1-Mild slurring
Extinction and Inattention: 0-No abnormality
Total Score:: 2
Thrombolytic Contraindication
Inclusion and Exclusion criteria reviewed: Yes
Reasons for NON-Tx with Thrombolytics ABSOLUTE Exclusions: Greater than 4.5 hrs from onset of sxs
Course
Orders/Labs/Results
Orders:
Orders
07/11/24 15:34
CT Head W/o Iv Contrast Urgent
Comment:
Reason For Exam: speech difficulty
07/11/24 15:42
Electrocardiogram (*1) Urgent
Reason for Study: Fatigue / Weakness
EKG- Treatment ONCE
07/11/24 16:49
Alcohol Urgent
Complete Blood Count/With Diff Urgent
Comprehensive Metabolic Panel Urgent
HCG, Serum Qualitative Screen Urgent
Comment: ADDON
07/11/24 16:58
Urinalysis Reflex To Culture Urgent
Urine Drug Abuse Screen Urgent
07/11/24 16:59
CT Head & Neck Angio W/wo IV Urgent
Comment:
Reason For Exam: confusion, acute speech difficulties
07/11/24 17:00
Add On- LAB Urgent
Tests Added?: alcohol level
07/11/24 17:04
NEUROLOGY CONSULT Urgent
Consulting Provider: Yenny Kapadia
Was physician already notified: Yes
Reason for consult: stroke
07/11/24 17:18
Test Result ONCE
07/11/24 17:59
0.9% Sodium Chloride 1000 ml [Nss] 1,000 ml IV BOLUS
07/11/24 18:43
Urine Drug Abuse Screen Routine
07/11/24 18:45
Echo 2D MMode Color/Doppler Routine
Reason for Study: Thrombotic source for stroke-like sxs
07/11/24 18:46
Obtain Records As Directed
Dates of Information to be Released: 2022-current
Type of Information Requested: Entire Record
Obtain Records from: [facility]
07/11/24 19:00
Atorvastatin [Lipitor] 40 mg PO QPM
Nicotine [Nicoderm Transdermal] 14 mg TRANSDERM DAILY
07/11/24 19:16
Lipid Profile [Cardiovascular Evaluation] Routine
TSH Reflex To Free T4 Routine
07/11/24 21:13
Lorazepam [Ativan] 2 mg .ROUTE .STK-MED ONE
07/11/24 21:15
Lorazepam [Ativan] 2 mg IV NOW STA
07/11/24 22:18
Admit/Transfer Patient As Directed
Co-Sign Provider:
Level of Care: Inpatient admission
Assign to:: Telemetry
Physician / Group: Anurag Jackson
Diagnosis: CVA
Reason for Telemetry: CVA/TIA
Date to Stop Telemetry: 07/14/24
Time to Stop Telemetry: 11:00
Reason for Hospitalization: CVA
Expected length of stay greater than two midnights?: Yes
ELOS- Estimated Length of Stay in days: 3
I certify the patient meets the requirements for IP care: Yes
PRN Pain Medication Management As Directed
May give lesser potent ordered pain med per pt: Yes
preference::
Protocol:: Medication orders for pain may be administered in a
manner that supports deferring to patient preference
when the pt is:
- Requesting an ordered lesser potent pain medication.
Least to most potent pain medications are defined
as: acetaminophen < NSAID < tramadol < opioids
(morphine, oxycodone, hydromorphone).
- Requesting a lesser dose of the same medication IF
ORDERED.
- Requesting a less intrusive route of administration
if both routes are prescribed by the provider (PO <
IV).
07/11/24 22:19
Code Status As Directed
Resuscitation Status: Full Code
07/11/24 23:00
Flush (0.9% Sodium Chloride) [Flush (Nss)] See Dose Instructions IV PER PROTOCOL
07/12/24 08:00
Aspirin 300 mg RECTAL DAILY
Clopidogrel Bisulfate [Plavix] 75 mg PO DAILY
07/14/24 11:00
DC Protocol for Telemetry ONCE
Abnormal Lab Results
07/11/24
16:49
MCHC 32.9 L g/dL
(33.0-37.0)
BUN 20 H mg/dl
(7-17)
Glucose 112 H mg/dl
(70-99)
07/11/24 16:49
07/11/24 16:49
Vital Signs
Initial and Last Documented VS:
Initial Vital Signs
Temp Pulse Resp BP Pulse Ox
97.9 F 87 18 117/81 100
07/11/24 15:30 07/11/24 15:30 07/11/24 15:30 07/11/24 15:30 07/11/24 15:30
Last Documented Vital Signs
Temp Pulse Resp BP Pulse Ox
97.9 F 97 13 92/55 95
07/11/24 15:30 07/11/24 22:30 07/11/24 22:30 07/11/24 22:30 07/11/24 22:30
MDM/Problems Addressed
Differential Diagnosis Includes:
Acute ischemic stroke, acute hemorrhagic stroke, acute UTI, acute hyponatremia, mental status changes due to THC use
MDM/Problems Addressed:
Patient presents with acute confusion and difficulty articulating words
Chronic conditions affecting care:
CVA
Acute Exacerbation and/or Progression of Chronic Illness:
Patient likely has acute ischemic stroke related to underlying clot disorder
*Radiology
Radiology exam reviewed: radiology read reviewed
*Pulse Oximetry
Patient hypoxic: no
*EKG
Interpreted by ED Provider?: Yes
Interpretation: normal
Comparison EKG: no comparison EKG present
Rate: normal
Rhythm: sinus
[place]: normal axis
Interval: normal interval
QRS Pattern: normal QRS
Ischemia: no ischemia
*Bench Worker Binding Interpretation
Rate: normal
Interpretation: normal
Rhythm: sinus
*Critical Care Note
Total Time (30-74mins, 75-104mins- exclusive of procedures): Not Applicable (47 minutes given to the patient of critical care including reassessing her mental status, reviewing her CAT scan report, speaking to neurology and the hospitalist, as well
as reviewing her EKG and lab work and counseling the patient and family)
Data Reviewed
Review of Other/Old Records Reveals: Discharge Summary (Discharge summary reviewed from hospitalist when patient was admitted in January 2024 for acute on chronic cholecystitis)
Source: patient and family
Patient Management
Social determinants of health affecting care: Living situation and Strong social support
Discussion with other providers: Hospitalist and Other (Patient evaluated at bedside and formal consult done by Dr. Kapadia from neurology)
Update Note
Update Note:
10:00 PM patient grew extremely agitated, stating that she did not want to stay in the hospital anymore. Given that patient presents with acute confusion and acute ischemic stroke, IV Ativan given to calm her down so she is more comfortable and can
safely stay here
ED Attending Note
-
Portions of this chart may have been created with voice recognition software.� Occasional wrong word or��sound alike� substitutions may have occurred due to the inherent limitations of voice recognition software.
Discharge Plan
Departure
Patient Disposition: Admit
Date of Disposition: 07/11/24
Time of Disposition: 20:08
Admit to: Telemetry
Presentation/result/management discussed w/ accepting MD/DO: Hospitalist
Patient with high blood pressure during this ER visit?: No
Condition: Fair
Covid-19: Not Applicable
Discharge Problem:
Acute ischemic stroke
Prescriptions:
No Action
dextroamphetamine-amphetamine [Adderall XR] 20 mg Capsule,Extended Release 24hr
20 mg PO BID Qty: 0
pregabalin [Lyrica] 50 mg Capsule
50 mg PO BID
Xarelto 20 mg Tablet
20 mg PO DAILY
Patient Comments:
no pharmacy records and ecw from 01/28/2024
doxepin 10 mg Capsule
10 mg PO HS
pantoprazole [Protonix] 20 mg Tablet,Delayed Release (Dr/Ec)
20 mg PO DAILY
trazodone 100 mg Tablet
100 mg PO HS
zolpidem [Ambien] 5 mg Tablet
5 mg PO HSPRN PRN (Reason: sleep)
Referrals:
UNKNOWN - PT DOES,NOT KNOW [Family Provider] -
Interventions
Interventions:
ED- Pulmonary Assessment Last Done: 07/11/24 16:30
ED- Neurological Assessment Last Done: 07/11/24 16:30
ED- Cardiac Assessment Last Done: 07/11/24 16:30
ED Swallowing Screen Last Done: 07/11/24 19:17
Discharge Date and Time
Print Language: GUAMANIAN
[2024-07-11 16:58] LABS: % Basophils 0.4 % (0-2); % Eosinophils 1.6 % (0-6); % Immature Granulocytes 0.2 % (0-0.5); % Lymphocytes 25.8 % (20.5-51.1); % Monocytes 5.6 % (1.7-9.3); % Neutrophils 66.4 % (42.2-75.2); Absolute Eosinophils 0.1 10^3/uL (0-0.7); Absolute Lymphocytes 2.3 10^3/uL (1.2-3.4); Absolute Monocytes 0.5 10^3/uL (0.1-0.6); Absolute Neutrophils 5.9 10^3/uL (1.4-6.5); Hemoglobin 12.5 g/dL (12.0-16.0); Mean Corp Hgb Conc. 32.9 g/dL (33.0-37.0); Mean Corpuscular Hgb 29.8 pg (27.0-31.0); Mean Corpuscular Volume 90.5 fL (81.0-99.0); Mean Platelet Volume 8.8 fL (7.4-10.4); Nucleated Red Blood Cells % 0 %; Platelet Count 224 10^3/uL (130-400); Red Cell Dist. Width 13.8 % (11.5-14.5); White Blood Cell Count 8.9 10^3/uL (4.8-10.8)
[2024-07-11 17:19] LABS: ALT (SGPT) 18 U/L (0-35); AST (SGOT) 26 U/L (14-36); Albumin 4.2 g/dl (3.5-5.0); Alkaline Phosphatase 52 U/L (38-126); Blood Urea Nitrogen 20 mg/dl (7-17); Calcium 9.1 mg/dl (8.4-10.2); Carbon Dioxide 28 mmol/L (22-30); Chloride 107 mmol/L (98-107); Glucose 112 mg/dl (70-99); Potassium 4.7 mmol/L (3.5-5.1); Sodium 141 mmol/L (135-145); Total Bilirubin 0.5 mg/dl (0.2-1.3); Total Protein 7.3 g/dl (6.3-8.2); eGFR > 60.00
[2024-07-11 17:21] LABS: Alcohol None Detected
--- NOTE | 2024-07-11 17:40 | CON.NEURO ---
Consultation
Order
Date of Consultation: 07/11/24
Requesting Provider: Ratna Fletcher MD
Reason for Consult: Stroke
Neurology Consultation Note.
HPI: This is a 39-year-old woman who presented to [facility] on July 07, 2024 with dysarthria and aphasia. Ms. Bullard is unable to provide a history.
Last time seen in usual state of health�11 PM on July 10, 2024.
According to patient's father the patient's previous stroke in November 2022 resulted in left arm>leg weakness. Following the stroke, she struggled with word-finding difficulties and comprehension.
She requires assistance with dressing, though she can shower independently. Medication adherence is uncertain and her father is unaware of her current medication regimen or whether she has been taking them as prescribed.
ER VS: 112/78, 88, 16, afebrile
EKG:NSR, QTc Int : 435 ms
PDMP: Dextroamp-Amphet Er 20 Mg 60 capsules filled in on [place] June 15, 2024, 05/18/2024, zolpidem 5 mg 30 tablets filled in on June 09, 2024 pregabalin 50 mg 60 capsules filled in on May 02, 2024.
Labs: Glucose�112, normal sodium, creatinine, WBCs, platelets,
CT head wo contrast-1. MODERATE-SIZED ACUTE ISCHEMIC TRANSCORTICAL INFARCT in the posterolateral LEFT TEMPORAL LOBE and inferolateral LEFT PARIETAL LOBE containing cytotoxic edema.
2. Moderate-sized band of encephalomalacia in the periventricular right frontal lobe and right basal ganglia consistent with a chronic infarct which is new from 12/01/2022.
3. Small chronic transcortical infarct in the superior right frontal lobe which is new from 12/01/2022.
CTA head/neck(12/01/2022) findings suspicious for significant vessel cut off of the M1 segment of the right middle cerebral artery.
PMH: Factor Leiden deficiency, protein C resistance, R MCA stroke(11/2022), DLP, type II DM, ADD, MDD, ROSALINA, nephrolithiasis, Nicotine dependence
PSH: C-sections, tubal ligation, gastric bypass, lap cholecystectomy,
SH: lives with her parents and her 2 children; mother is currently on home hospice
All:NKDA
ROS: limited due to encephalopathy
General: Well developed. In no acute distress.
Cardio: Regular rate and rhythm without murmur. Extremities are without cyanosis or edema.
Neuro:
Mental Status: Lethargic, arouses to verbal and tactile stimuli. Requires constant stimulation to stay awake. Eye opening apraxia, very poor attention, follows simple requests intermittently. Persevates.
Cranial Nerves: Orthophoric primary gaze. Pupils are equally round and reactive to light. Mild left facial weakness. Hearing is preserved.
Motor: Spastic mild left hemiparesis. All limbs are antigravity.
Sensory: Localizes noxious stimuli
Coordination: No tremors myoclonic movements
Gait: deferred
Assessment and Plan:
I. Acute-subacute left MCA territory stroke. Likely etiology�embolic
II. Chronic right MCA infarct.
III. Factor Leiden deficiency, protein C resistance.
IV. Vascular encephalopathy
V. Nicotine dependence
. 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
- Avoid cerebral hypoperfusion
- Please check TFTs, urine tox, lipid panel
- Hold Eliquis and start DAPT
- Brain MRI without rosalina repeat CT head in 12-24 hours from the initial 1 if brain MRI is not feasible.
- Start nicotine patch
- TTE
- Please obtain medical records from [facility]
- Please follow-up CTA head and neck
-hotel maintenance worker consult
- Case discussed was discussed with patient's father
I personally reviewed all radiology and labs along with past medical records pertinent to current medical problems. Total time spent in patient care is 60 minutes.
Thank you for allowing us to participate in the care of this patient. We will continue to follow. Please do not hesitate to contact us with any questions or concerns.
Subjective/Objective
Subjective Data
Date of Service: July 11, 2024
Objective Data
Vital Signs
Temp Pulse Resp BP Pulse Ox
36.6 C 88 16 112/78 100
07/11/24 15:30 07/11/24 16:45 07/11/24 16:45 07/11/24 16:28 07/11/24 16:45
Lab Results
07/11/24 16:49
07/11/24 16:49
Sodium 141 mmol/L (135-145) 07/11/24 16:49
Potassium 4.7 mmol/L (3.5-5.1) 07/11/24 16:49
BUN 20 mg/dl (7-17) H 07/11/24 16:49
Glucose 112 mg/dl (70-99) H 07/11/24 16:49
Calcium 9.1 mg/dl (8.4-10.2) 07/11/24 16:49
Patient Allergies
No Known Allergies Allergy (Verified 01/02/24 00:17)
Medications
-
Home Medications
�Medication �Instructions �Recorded
Adderall XR 40 mg PO DAILY ADHD 01/02/24
pregabalin 50 mg capsule (Lyrica) 50 mg PO BID neuropathic pain 01/02/24
rivaroxaban 20 mg tablet (Xarelto) 20 mg PO DAILY Stroke 01/02/24
cefpodoxime 200 mg tablet 200 mg PO BID 5 days #10 tabs 01/04/24
ibuprofen 600 mg tablet 600 mg PO Q6HPRN PRN moderate pain 01/08/24
#30 tabs
oxycodone 10 mg tablet 10 mg PO Q4HPRN PRN severe pain 01/08/24
#15 tabs
Vital Signs and Labs
-
Vital Signs and Labs:
Vital Signs
Temp Pulse Resp BP Pulse Ox
36.6 C 88 16 112/78 100
07/11/24 15:30 07/11/24 16:45 07/11/24 16:45 07/11/24 16:28 07/11/24 16:45
Lab Results
07/11/24 16:49
07/11/24 16:49
Sodium 141 mmol/L (135-145) 07/11/24 16:49
Potassium 4.7 mmol/L (3.5-5.1) 07/11/24 16:49
BUN 20 mg/dl (7-17) H 07/11/24 16:49
Glucose 112 mg/dl (70-99) H 07/11/24 16:49
Calcium 9.1 mg/dl (8.4-10.2) 07/11/24 16:49
Home Medications
-
Home Medications
Adderall XR 40 mg PO DAILY ADHD 01/02/24
pregabalin 50 mg capsule (Lyrica) 50 mg PO BID neuropathic pain 01/02/24
rivaroxaban 20 mg tablet (Xarelto) 20 mg PO DAILY Stroke 01/02/24
cefpodoxime 200 mg tablet 200 mg PO BID 5 days #10 tabs 01/04/24
ibuprofen 600 mg tablet 600 mg PO Q6HPRN PRN moderate pain #30 tabs 01/08/24
oxycodone 10 mg tablet 10 mg PO Q4HPRN PRN severe pain #15 tabs 01/08/24
[2024-07-11] MEDS: NSS 1000 IV ×2 (18:04→23:53)
[2024-07-11 18:59] LABS: HCG, Serum Qualitative Screen Negative
[2024-07-11] MEDS: NICODERM TRANSDERMAL 14 MG TRANSDERM (19:20)
[2024-07-11] MEDS: LIPITOR 40 MG PO (19:21)
[2024-07-11 19:42] LABS: HDL Cholesterol 36 mg/dl; LDL Cholesterol, Calculated 48 mg/dl; Total Cholesterol 104 mg/dl (50-199); Triglyceride 103 mg/dl (10-149); Very Low Density Lipoprotein 20 mg/dl (0-30)
[2024-07-11 20:05] LABS: TSH Reflex To Free T4 0.79 uIU/ml (0.47-4.68)
[2024-07-11] MEDS: ATIVAN 2 MG IV (21:16)
--- NOTE | 2024-07-11 21:23 | HPS.HSE ---
Addendum entered and electronically signed by Anurag Jackson DO 07/11/24 23:07:
Patient seen and examined independently. Agree with findings and plan as set forth by PATRICIO Bryan.
Patient is a 39y F with PMH significant for Factor V Leiden / Protein C Deficiency and prior CVA who presents to ED for evaluation of speech abnormality / lethargy. History obtained from ED staff and father via phone. Patient was last seen well
last PM around 11PM. Today she slept until 1 PM - which is unusual for her. When she woke, she texted family members but texts were noted to be nonsensical. When family went to check on her they found her to be confused and having difficulty
speaking / communicating. Patient has chronic L hemiparesis (arm > leg) from her prior CVA. Patient was brought to the ED for further evaluation.
During evaluation in the ED, patient apparently became agitated. She was given 2mg of IV Ativan.
At the time of our examinations, patient was lethargic. She would briefly open eyes to voice / noxious stimuli - but does not answer questions or follow commands.
Ass:
Acute L MCA CVA
Large Vessel Occlusion of the L MCA A1 Segment
Left Hemiparesis s/p Prior CVA
Factor V Leiden / Protein C Deficiency
ADD
Anxiety
Plan:
Admit to monitored bed.
Patient with acute stroke visible on non-contrast CT. CTA shows occlusion of L A2 segment of MCA.
Findings reviewed with Neurology who recommend holding Eliquis and beginning DAPT.
Not tPA candidate due to delayed presentation and anticoagulation use.
Last known well is now 24 hours ago.
IVFs / BP support to prevent hypoperfusion.
Avoid sedating meds / antihypertensive medications / etc.
PT / OT / Speech evaluations.
Check Echo, TFTs, lipids, A1C, etc.
Follow for clinical changes.
Original Note:
Family Physician
-
Family Physician: NOT KNOW UNKNOWN - PT DOES
Chief Complaint
-
CVA/TIA symptoms
History of Present Illness
Patient is a 39-year-old female with past medical history significant for factor V Leyden and stroke, with residual chronic left-sided weakness who presented o [facility] ED for evaluation of stroke like symptoms. Patient not participating in assessment
and presents lethargic just wanting to go to sleep. Call to patients father for HPI, he reports that patient son came to notify him around 1600 that he felt patient was having another stroke, so he instructed him to bring patient to hospital
immediately. He states he is not aware last known time at being baseline as he is home caring for his on hospice. He also, states he is unaware of medications and if patient is compliant with the. In review of ED note, appears son reported that
patient was last known at baseline at 2300 last night 07/10/2024. Patient then was sending text messages that did not make sense and when spoken too patients speech slurred and was not making sense.
Medical History
Past Medical History
Past Medical History: Reports Other
Additional Past Medical History:
anxiety
Factor V deficiency
CVA
ADD
Past Surgical History: Reports Other
Additional Past Surgical History:
x2
tubal ligation
gastric sleeve
cholecystectomy
Social History
Tobacco: Smoker
Alcohol: None
Drug: Marijuana
Personal:
Living: With Family
Employment: Employed
Family History
Family History: CAD, Cancer (breast cancer ) and Other (Sister with gallbladder disease)
Allergies / Home Medications
Allergies reflects when Allergies were last updated in [facility].
Home Medications with original date entered in [employer]
Allergy/Medication List:
Medications on admission are unable to be verified or confirmed at this time.
Review of Systems
-
Unable to obtain full review of systems at this time due to: Other (patient confused )
History Source: Patient and Family
Neurological: Reports Other (slurred speech, nonsensical conversation )
Physical Exam
Vital Signs
Vital Signs
Temp Pulse Resp BP Pulse Ox
97.9 F 86 14 91/79 100
07/11/24 15:30 07/11/24 20:01 07/11/24 20:01 07/11/24 20:01 07/11/24 19:45
Physical Exam
General: Well Developed, Well Nourished, No Apparent Distress, Comfortable and Slurred Speech
HEENT: NormoCephalic, Moist mucous membranes, PERRLA, [place] Conjunctivae, Nose Appears Normal and Ears Appear Normal
Respiratory: Clear and Non Labored Respirations
Cardiac: S1/S2 and Regular Rhythm
Breast: Deferred by me
GI: Soft, Non Tender and Normal Bowel Sounds
Rectal: Deferred by Provider
Genito-urinary: Deferred by me
Musculoskeletal: No Clubbing, No Cyanosis and No Edema
Skin: Warm and IV/Catheter Site
Neuro: Slurred Speech and Sedated
Psych: Confused
Laboratory Results
-
07/11/24 16:49
07/11/24 16:49
Laboratory Results
Total Bilirubin 0.5 mg/dl (0.2-1.3) 07/11/24 16:49
AST 26 U/L (14-36) 07/11/24 16:49
ALT 18 U/L (0-35) 07/11/24 16:49
Alkaline Phosphatase 52 U/L (38-126) 07/11/24 16:49
Data Reviewed
-
CT Scan: Report Reviewed by me (see reports)
Lab Data: Labs Reviewed by me
Impression/Plan
-
IMPRESSION/PLAN:
#CVA
#Hx CVA 11/[address]: 1. MODERATE-SIZED ACUTE ISCHEMIC TRANSCORTICAL INFARCT in the posterolateral LEFT TEMPORAL LOBE and inferolateral LEFT PARIETAL LOBE containing cytotoxic edema.
2. Moderate-sized band of encephalomalacia in the periventricular right frontal lobe and right basal ganglia consistent with a chronic infarct which is new from 12/01/2022.
3. Small chronic transcortical infarct in the superior right frontal lobe which is new from 12/01/2022.
NECK CTA:
1. No CTA evidence for internal carotid artery stenosis or occlusion.
2. No CTA evidence for vertebral artery stenosis or occlusion.
3. Moderate discogenic degenerative disease at C5/C6 and C6/C7.
4. Mild spinal cord compression and central canal stenosis at C4/C5, C5/C6, and C6/C7.
HEAD CTA:
1. ACUTE COMPLETE OCCLUSION of the INFERIOR DIVISION of the A2 segment of the LEFT MIDDLE CEREBRAL ARTERY.
2. MODERATE SIZED ACUTE ISCHEMIC INFARCT in the LEFT TEMPORAL and PARIETAL LOBES containing cytotoxic edema.
3. Moderate-sized chronic infarct in the right basal ganglia.
4. Small chronic transcortical infarct in the superior right frontal lobe.
- Admit to telemetry
- IVF
- Consult Neurology
- start DAPT
- Brain MRI
- request records from [facility]
- Consult case management
- Consult PT
#Factor V deficiency
- hold Xarelto per neurology
#ADD
- continue Adderall out patient
#anxiety
- hold doxepin
Code status: full code
DVT prophylaxis: SCDs
[2024-07-12] VITALS (20 sets, daily range): BP systolic 93–118; BP diastolic 62–84; BMI 28.3
[2024-07-12 00:10] LABS: Erythrocyte Sed Rate 24 mm/hour (0-20)
[2024-07-12 00:13] LABS: INR 1.06; PT 14.1 Sec (11.4-14.6)
[2024-07-12 00:14] LABS: APTT 25.7 Sec (23.4-35.0)
[2024-07-12 00:18] LABS: Troponin I < 0.012 ng/ml
[2024-07-12 00:48] LABS: Urine Albumin 2+ (Neg - Trace); Urine Bilirubin Negative (Negative); Urine Character Clear (Clear); Urine Color Yellow; Urine Glucose Negative (Negative); Urine Ketone Negative (Negative); Urine Leukocyte Negative (Negative); Urine Nitrite Negative (Negative); Urine Occult Blood Negative (Negative); Urine Urobilinogen Negative (Neg - 1+); Urine pH 6.5 (5.0-9.0)
[2024-07-12 01:01] LABS: Amphetamines Positive (Negative)
[2024-07-12 01:02] LABS: Barbiturates Negative (Negative); Benzodiazepines Positive (Negative); Buprenorphine Negative (Negative); Cocaine Negative (Negative); Marijuana Positive (Negative); Methadone Negative (Negative); Methamphetamines Positive (Negative); Opiates Negative (Negative); Phencyclidine Negative (Negative); Tricyclic Antidepressants Negative (Negative)
[2024-07-12 01:07] LABS: Urine Bacteria Few (Negative); Urine Red Blood Cell 0-2 /HPF (0-2); Urine White Cell 0-2 /HPF (0-5)
[2024-07-12 01:48] LABS: Fentanyl, Urine Negative (Negative)
--- NOTE | 2024-07-12 07:16 | W.PN.NEURO.1 ---
Today's Communication / Plan
-
.
Subjective/Objective
Subjective Data
Date of Service: July 12, 2024
Neurology follow-up note
24-hour events: Normotensive, afebrile.
'I want to go home '.
CTA head and neck�acute occlusion of the inferior division of the M2 segment.
LDL�48, hemoglobin A1c�5.7.
Urine tox�positive for benzodiazepines, THC, amphetamines.
The patient declined TTE.
PMH: Factor Leiden deficiency, protein C resistance, R MCA stroke(11/2022), DLP, type II DM, ADD, MDD, ROSALINA, nephrolithiasis, Nicotine dependence
PSH: C-sections, tubal ligation, gastric bypass, lap cholecystectomy,
SH: lives with her parents and her 2 children; mother is currently on home hospice
All:NKDA
ROS: limited due to encephalopathy
General: Well developed. In no acute distress.
Cardio: Regular rate and rhythm without murmur. Extremities are without cyanosis or edema.
Neuro:
Mental Status: Awake, moderate expressive and receptive aphasia. Follows simple requests intermittently. Labile mood.
Cranial Nerves: Orthophoric primary gaze. Pupils are equally round and reactive to light. Mild left facial weakness. No visual field defects. Hearing is preserved. No dysarthria.
Motor: Spastic left hemiparesis. All limbs are antigravity.
Coordination: No tremors myoclonic movements
Gait: deferred
Assessment and Plan:
I. Acute-subacute left MCA territory stroke. M2 occlusion. Likely etiology�embolic
II. Chronic right MCA infarct.
III. Factor Leiden deficiency, protein C resistance.
IV. Vascular encephalopathy
V. Nicotine dependence
. 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
- Avoid cerebral hypoperfusion
- Continue DAPT
- Speech therapy.
- Please follow-up TFTs
- Oncology consult
- Brain MRI without rosalina repeat CT head in 12-24 hours from the initial 1 if brain MRI is not feasible.
- TTE
- Will follow
I personally reviewed all radiology and labs along with past medical records pertinent to current medical problems. Total time spent in patient care is 35 minutes.
Thank you for allowing us to participate in the care of this patient. We will continue to follow. Please do not hesitate to contact us with any questions or concerns.
Objective Data
Vital Signs
Temp Pulse Resp BP Pulse Ox
36.6 C 83 15 112/81 97
07/11/24 15:30 07/12/24 06:45 07/12/24 05:45 07/12/24 06:30 07/12/24 06:29
Lab Results
07/11/24 16:49
07/11/24 16:49
PT 14.1 Sec (11.4-14.6) 07/11/24 23:48
INR 1.06 07/11/24 23:48
APTT 25.7 Sec (23.4-35.0) 07/11/24 23:48
Sodium 141 mmol/L (135-145) 07/11/24 16:49
Potassium 4.7 mmol/L (3.5-5.1) 07/11/24 16:49
BUN 20 mg/dl (7-17) H 07/11/24 16:49
Glucose 112 mg/dl (70-99) H 07/11/24 16:49
Calcium 9.1 mg/dl (8.4-10.2) 07/11/24 16:49
LDL Cholesterol, Calc 48 mg/dl 07/11/24 19:16
Ur Buprenorphine Negative (Negative) 07/12/24 00:37
Patient Allergies
No Known Allergies Allergy (Verified 01/02/24 00:17)
Vital Signs and Labs
-
Vital Signs and Labs:
Vital Signs
Temp Pulse Resp BP Pulse Ox
36.6 C 83 15 112/81 97
07/11/24 15:30 07/12/24 06:45 07/12/24 05:45 07/12/24 06:30 07/12/24 06:29
Lab Results
07/11/24 16:49
07/11/24 16:49
PT 14.1 Sec (11.4-14.6) 07/11/24 23:48
INR 1.06 07/11/24 23:48
APTT 25.7 Sec (23.4-35.0) 07/11/24 23:48
Sodium 141 mmol/L (135-145) 07/11/24 16:49
Potassium 4.7 mmol/L (3.5-5.1) 07/11/24 16:49
BUN 20 mg/dl (7-17) H 07/11/24 16:49
Glucose 112 mg/dl (70-99) H 07/11/24 16:49
Calcium 9.1 mg/dl (8.4-10.2) 07/11/24 16:49
LDL Cholesterol, Calc 48 mg/dl 07/11/24 19:16
Ur Buprenorphine Negative (Negative) 07/12/24 00:37
Medications
-
Medications:
Generic Name Dose Route Start Last Admin
Trade Name Freq PRN Reason Stop Dose Admin
Acetaminophen 650 mg 07/11/24 23:21
Acetaminophen 650 Mg Rectal Suppository RECTAL 08/08/24 23:20
Q4HPRN PRN
CHEN, mild pain, or temp >100.4F
Acetaminophen 650 mg 07/11/24 23:21
Acetaminophen 325 Mg Tablet PO 08/08/24 23:20
Q4HPRN PRN
CHEN, mild pain, or temp >100.4F
Aspirin 81 mg 07/12/24 08:00
Aspirin 81 Mg Chewable Tablet PO 08/09/24 07:59
DAILY DES
Atorvastatin Calcium 40 mg 07/12/24 18:00
Atorvastatin (Lipitor) 40 Mg Tablet PO 08/09/24 17:59
QPM DES
Sodium Chloride 1,000 mls @ 125 mls/hr 07/11/24 23:21 07/11/24 23:53
Nss IV 1,000 mls
.Q8H DES Administration
Nicotine 14 mg 07/11/24 19:00 07/11/24 19:20
Nicotine 14 Mg Patch TRANSDERM 08/08/24 18:59 14 mg
DAILY DES Administration
Sodium Chloride 0 flush 07/11/24 23:00
Sodium Chloride 0.9% (Flush) Syringe IV 08/08/24 22:59
PER PROTOCOL DES
Home Medications
-
Home Medications
dextroamphetamine-amphetamine ER 20 mg 24hr capsule,extend release (Adderall XR) 20 mg PO BID ADHD ##0 01/02/24
pregabalin 50 mg capsule (Lyrica) 50 mg PO BID neuropathic pain 01/02/24
rivaroxaban 20 mg tablet (Xarelto) 20 mg PO DAILY Stroke 01/02/24
doxepin 10 mg capsule 10 mg PO HS 07/11/24
pantoprazole 20 mg tablet,delayed release (Protonix) 20 mg PO DAILY 07/11/24
trazodone 100 mg tablet 100 mg PO HS 07/11/24
zolpidem 5 mg tablet (Ambien) 5 mg PO HSPRN PRN sleep 07/11/24
--- NOTE | 2024-07-12 09:00 | W.PN.HOSP.TC ---
Today's Communication/Plan
-
Will continue to claims counsel the patient to take her medications.
Assessment / Plan
Assessment / Plan
Physical Exam
General: No Apparent Distress, Comfortable
HEENT: Normocephalic, Moist mucous membranes, PERRLA, [place] Conjunctivae, Nose Appears Normal and Ears Appear Normal
Respiratory: Clear and Non Labored Respirations
Cardiac: S1/S2 and Regular Rhythm
GI: Soft, Non Tender and Normal Bowel Sounds
Rectal: no bleeding
Genito-urinary: no hematuria
Musculoskeletal: No Clubbing, No Cyanosis and No Edema
Skin: Warm and IV/Catheter Site
Neuro: AAO X 3, visual filed is intact, she follows commands appropriately. Speech is better according o staff, left upper extremity weakness
Psych: agitated, wants to go home
#CVA
-Acute-subacute left MCA territory stroke. Likely etiology�embolic
- Chronic right MCA infarct.
- Vascular encephalopathy
- Nicotine dependence
Patient's speech improved overnight. She is able to swallow without restriction. She is following commands. She is refusing to stay in the hospital.
She refused echo of the heart and MRI
Discussed with neurologist, continue aspirin and resume systemic AC in 1 week
Discussed with speech, recommend speech therapy as outpatient. Discussed with PT/OT, continue outpatient occupational therapy
#Factor V deficiency
#ADD
- continue Adderall out patient
#anxiety
Currently refusing treatments
Code status: full code
DVT prophylaxis: SCDs
Total time spent to see the patient, examine the patient, review data and lab result, discuss treatment plan with patient, nursing staff around 55 minutes
Anticipated Discharge: > 48 hours
Subjective/Interval History
-
Date of Service: July 12, 2024
Objective Data
-
Labs:
Laboratory Results
07/11/24
23:48
PT 14.1
INR 1.06
APTT 25.7
Vital Signs:
Vital Signs
Temp Pulse Resp BP Pulse Ox
97.9 F 66 17 110/72 98
07/11/24 15:30 07/12/24 08:45 07/12/24 08:45 07/12/24 08:30 07/12/24 08:30
[2024-07-12 09:09] LABS: Glycohemoglobin (HgbA1c) 5.7 % (4.0-5.6)
[2024-07-12] MEDS: NICODERM TRANSDERMAL 14 MG TRANSDERM (09:57)
[2024-07-12] MEDS: LOW STRENGTH ASPIRIN 81 MG PO (09:57)
--- NOTE | 2024-07-12 10:54 | PTOTSP ---
Speech Therapy Assessment
Patient presents with a moderate to severe expressive-receptive aphasia. Conversational language more accurate compared to out of context communication attempts. Verbal expression contains multitude of morphemic paraphasias when attempting to
respond outside of automatic/conversational speech tasks. Comprehension also breaks down without context of conversation.
Oral/pharyngeal swallow deemed wfl. No overt signs of aspiration.
Recommend
1. Continue regular solids and thin liquids
2. ST follow up in acute care and intensive therapy after discharge.
--- NOTE | 2024-07-12 11:17 | W.PN.UPDATE ---
Addendum entered and electronically signed by Mayo Blair MD 07/12/24 12:39:
Addendum
Unfortunately, patient eloped/left and walked out independently.
Patient verbalized understanding to potential side effects of leaving the hospital without finishing MRI/echo of the heart and neurology follow-up
She verbalized understanding to her current diagnosis and potential complications of stroke-conversion to hemorrhagic stroke. She verbalized understanding to the gravity of her situation but insisted upon leaving the hospital
Discussed with disability case manager. emergency planning and response manager talked with the father and we will mail the PT/OT/Speech therapy.
I also spoke with Pt's PCP Dr Chiquita Thompson' office, spoke with Dr erinn Van and discussed recommendations, faxed also all her images and records to office at [phone]. She said she would ask staff to call and make an
appointment soon.
End
Original Note:
Update Note
Progress Note Update
I was called by nurse as patient was ready to leave and refusing to stay
Her son is with her and is to drive her home. Son Anibal is 18 years old
Patient is awake, alert oriented to self and surroundings.
She is agitated and refusing to stay. She had refused echo and MRI.
ER staff tried to hold the patient from leaving and patient became violent and aggressive to the staff. Staffer placed 4 point restraints but patient became even more upset, threatening to rogelio us for forcing her to stay.
I saw the patient, she answered accurately to name, date of and home address- son confirmed accurate address.
After removing 4 point restraints, patient dressed herself and walked out the hospital with no need for clerical administrative assistant. She remained visibly upset and unhappy with the ways she was treated.
I called the father and informed him we tried to stay keep the patient and placed on 4 point restraints but patient became very upset. Father was not surprised by patient's behavior and confirmed her unwillingness to stay in hospital.
Unfortunately only way to keep the patient was to use pharmacological sedatives which seem inappropriate since patient was competent and alert to make decisions.
I gave father instructions to continue taking baby dose of aspirin and make sure to hold systemic anticoagulation and resume next Thursday to avoid conversion of stroke into bleeding per neurology recommendation.
I also advised him to do outpatient follow-up with a primary care doctor within a week or 2.
Father expressed his intentions to be more involved in her care and to supervise her medications intake. I also recommended to bring her back to the hospital if her condition worsens or any new symptoms.
Father confirmed that patient has no history of incompetency and she does make her own decisions although sometimes not in her best interest ( he said: she is an adult and cannot force). I suggested home care services and he agreed, reached out to
CM to arrange.
End
--- NOTE | 2024-07-12 11:55 | CM ---
Addendum entered by Suzanna Godwin 07/12/24 11:57:
Patient's family physician is not identified on the chart; patient's father unable to provide PCP name
CM explained to father that Outpatient Therapy for PT/OT was recommended; he is agreeable; requested that script for PT/OT be mailed to him W
Address: [address] [place] [id number]
Original Note:
Attempted to complete initial assessment this morning; patient was being evaluated by Therapy and I was asked to come back later.\\
Patient has signed out AMA
Attending requested that CM call patient's father; he was requesting home health services
Chart reviewed; explained to Attending that PT/OT recommended Outpatient Therapy not Home Health
--- NOTE | 2024-07-12 18:11 | W.DCSUMMARY ---
Discharge Summary
Discharge Data
Date of Admission: 07/11/24
Date of Discharge: 07/12/24
-
Pending Results: No
Hospital Course
39 years old female with past medical history significant for factor V Leiden deficiency, protein seizure resistant and right MCA stroke in 2022 with a chronic left hemiparesis (upper extremity weakness more prominent but able to walk independently
) presented to the hospital with speech problem and lethargy. Patient was taking Xarelto for history of thrombophilia with stroke. CAT scan of the head showed moderate size acute ischemic infarct in the posterior lateral left temporal lobe and
inferior lateral left parietal lobe, moderate-sized band of encephalomalacia in the periventricular right frontal lobe and right basal ganglia consistent with a chronic infarct which is new from 12/01/2022. CAT scan of the head and neck did not show
evidence of internal carotid artery stenosis or occlusion or vertebral disease, inferior division acute complete occlusion of the M2 segment per neurology evaluation. Patient was diagnosed with acute stroke and admitted to the hospital.
Neurologist recommended to continue with 81 mg of aspirin only, hold systemic anticoagulation for at least a week to avoid hemorrhagic conversion of the stroke. Patient was scheduled to have MRI with echocardiogram with further management in the
hospital. She was evaluated by speech therapy and recommended to continue regular diet with outpatient speech therapy. She was seen by physical therapy and Occupational Therapy recommended outpatient physical therapy. Patient remained
hemodynamically stable. She tolerated diet. Patient's mentation alert and oriented to self and surroundings. Patient wanted to leave the hospital and she was refused further management in the hospital including MRI, echo. Patient verbalized
understanding to potential side effects of leaving the hospital AGAINST MEDICAL ADVICE without completing workup and further neurology recommendations. Patient verbalized understanding to gravity of her condition with a new stroke. Patient became
verbally and physically abusive to all the staff members. Despite prolonged counseling to stay in the hospital, she dressed herself and walked out of the hospital independently with her son and without social science research assistant. Her son who reported he was 18
years old and was driving her home. Her father was updated and was given discharge instructions including taking baby dose of aspirin, to resume Xarelto in 1 week, outpatient follow-up with a primary care doctor and a prescription for physical
therapy/speech therapy was mailed to the hospital. estimating manager also spoke with father. Patient was fully oriented and competent to make decisions, father confirmed that patient was competent adult and always made her own decisions, he also
expressed his intention to be more involved in her care. Primary care doctor office/covering doctor was also updated, images with records were faxed to the office.
Discharge Plan
-
Patient Disposition: Against Medical Advice
Prescriptions:
No Action
dextroamphetamine-amphetamine [Adderall XR] 20 mg Capsule,Extended Release 24hr
20 mg PO BID Qty: 0
pregabalin [Lyrica] 50 mg Capsule
50 mg PO BID
Xarelto 20 mg Tablet
20 mg PO DAILY
Patient Comments:
no pharmacy records and ecw from 01/28/2024
doxepin 10 mg Capsule
10 mg PO HS
pantoprazole [Protonix] 20 mg Tablet,Delayed Release (Dr/Ec)
20 mg PO DAILY
trazodone 100 mg Tablet
100 mg PO HS
zolpidem [Ambien] 5 mg Tablet
5 mg PO HSPRN PRN (Reason: sleep)
Discharge Date and Time
Discharge Date/Time: 07/12/24 14:15
Print Language: GABONESE
== END 2024-07-12 14:15 | disposition left against medical advice (07) | DRG 65 ==
LOC: ED 23:04
PROVIDERS: Nurse Practitioner Family; Student in an Organized Health Care Education/Training Program; ADMITTING PHYSICIAN Hospitalist; ATTENDING PHYSICIAN Internal Medicine; CONSULT PHYSICIAN Psychiatry & Neurology Neurology; EMERGENCY PHYSICIAN Emergency Medicine
DX: I63.513 Cerebral infarction due to unspecified occlusion or stenosis of bilateral middle cerebral arteries (principal); D68.2 Hereditary deficiency of other clotting factors; G99.2 Myelopathy in diseases classified elsewhere; Z53.29 Procedure and treatment not carried out because of patient's decision for other reasons; Z78.1 Physical restraint status
CPT/HCPCS: 70450; 70496; 70498; 80053; 80061; 80306; 80307; 81003; 81015; 82077; 83036; 84443; 84484; 84703; 85025; 85610; 85652; 85730; 86850; 86900; 86901; 92523; 92610; 93005; 96361; 96374; 97167; 99291; Q9967

== ENCOUNTER 2024-08-04 10:03 | Outpatient (RCR) | payer OTHER, SELFPAY | END 2024-08-04 23:59 | disposition home or self-care (01) | LOC: RPT 10:03 | PROVIDERS: ATTENDING PHYSICIAN Family Medicine | DX: I69.354 Hemiplegia and hemiparesis following cerebral infarction affecting left non-dominant side (principal); I69.328 Other speech and language deficits following cerebral infarction; I69.320 Aphasia following cerebral infarction; Z73.6 Limitation of activities due to disability | CPT/HCPCS: 92507; 92523; 97110; 97112; 97116; 97163; 97167; 97760 ==

== ENCOUNTER 2024-09-01 09:28 | Outpatient (RCR) | payer OTHER, SELFPAY | END 2024-09-01 23:59 | disposition home or self-care (01) | LOC: RPT 09:28 | PROVIDERS: ATTENDING PHYSICIAN Family Medicine | DX: I69.354 Hemiplegia and hemiparesis following cerebral infarction affecting left non-dominant side (principal); I69.328 Other speech and language deficits following cerebral infarction; I69.320 Aphasia following cerebral infarction; Z73.6 Limitation of activities due to disability | CPT/HCPCS: 92507; 97010; 97110; 97112; 97116; 97140; 97530; 97535 ==

== ENCOUNTER 2024-10-04 10:19 | Outpatient (RCR) | payer OTHER, SELFPAY | END 2024-10-04 23:59 | disposition home or self-care (01) | LOC: RPT 10:19 | PROVIDERS: ATTENDING PHYSICIAN Internal Medicine; FAMILY PHYSICIAN Family Medicine | DX: I69.354 Hemiplegia and hemiparesis following cerebral infarction affecting left non-dominant side (principal); I69.328 Other speech and language deficits following cerebral infarction; I69.320 Aphasia following cerebral infarction; Z73.6 Limitation of activities due to disability | CPT/HCPCS: 92507; 97010; 97110; 97112; 97116; 97140; 97530; 97535 ==

== ENCOUNTER 2024-10-16 12:43 | Emergency (ER) | payer OTHER, SELFPAY ==
[2024-10-16 12:46] VITALS: BP 124/84
[2024-10-16 13:30] VITALS: BMI 24.2
[2024-10-16 14:08] LABS: Urine Character Clear (Clear)
[2024-10-16 14:10] VITALS: BP 115/84
[2024-10-16 14:28] LABS: Urine White Cell 30-40 /HPF (0-5)
[2024-10-16 14:55] LABS: HCG, Urine Qualitative Screen Negative
[2024-10-16 15:20] LABS: Hematocrit 37.2 % (37.0-47.0); Hemoglobin 12.4 g/dL (12.0-16.0); Mean Corp Hgb Conc. 33.3 g/dL (33.0-37.0); Mean Corpuscular Volume 87.7 fL (81.0-99.0); Nucleated Red Blood Cells % 0 %; Platelet Count 212 10^3/uL (130-400); Red Cell Dist. Width 14.1 % (11.5-14.5)
[2024-10-16 15:29] LABS: ALT (SGPT) 14 U/L (0-35); AST (SGOT) 18 U/L (14-36); Albumin 4.4 g/dl (3.5-5.0); Alkaline Phosphatase 59 U/L (38-126); Blood Urea Nitrogen 14 mg/dl (7-17); Calcium 9.6 mg/dl (8.4-10.2); Carbon Dioxide 24 mmol/L (22-30); Chloride 110 mmol/L (98-107); Estimated Creatinine Clearance 83 ml/min; Glucose 96 mg/dl (70-99); Lipase 297 U/L (23-300); Sodium 140 mmol/L (135-145); Total Protein 7.5 g/dl (6.3-8.2); eGFR > 60.00
[2024-10-16 15:36] LABS: Potassium 3.8 mmol/L (3.5-5.1)
[2024-10-16] MEDS: MAALOX 40 PO (15:39)
[2024-10-16] MEDS: PEPCID 20 MG IV (15:40)
[2024-10-16 15:49] VITALS: BP 117/84
[2024-10-16 16:00] VITALS: BP 111/69
[2024-10-16 16:24] LABS: Troponin I < 0.012 ng/ml
--- NOTE | 2024-10-16 17:15 | ED.GENMED ---
History of Present Illness
General
Chief Complaint: Abdominal Pain
Source: patient
Exam Limitations: none
Time Seen by Provider: 10/16/24 14:21
Nursing documentation reviewed up to this point in time: agreed with
History of Present Illness
History of Present Illness:
see MDM
Past History
Past History
ED Past Medical History: CVA, Psychiatric (Anxiety) and Other (Factor V Deficiency, gestational diabetes, gastric sleeve)
Social History
Tobacco: Smoker
Alcohol: None
Personal:
Living: with family
Employment: Employed
Family History
Family History: CAD and Other (Breast cancer)
Phy Exam
Physical Exam
Physical Exam:
GENERAL: Alert , in no apparent distress; slightly dysarthric at times; seemingly mildyl intoxicated but also has aphasia due to stroke
EYE: pupils equal and reactive
NECK: Supple
ENT: o/p clr, mmm.
CARDIAC: Regular rate and rhythm .
LUNGS: Clear breath sounds bilaterally, no acute respiratory distress, no wheezes/rales/rhonchi
ABDOMEN: Soft,nontender, neg specne's sign, without focal tenderness, no r/g, no cvat, normal bowel sounds
NEUROLOGICAL: Alert and oriented, mild dysarthria; LUE hand weakness;arm hemiparesis; RUE normal, b/l LE intact, sensantion tinact
SKIN: Warm and dry, skin intact.
MUSCULOSKELETAL: No edema, well perfused. neg camille's sign
PSYCH: Normal and appropriate interaction.
Course
Orders/Labs/Results
Orders:
Orders
10/16/24 13:34
Test Result ONCE
10/16/24 13:58
Fentanyl, Urine Urgent
HCG, Urine Qualitative Screen Urgent
Date Specimen was Collected: 10/16/24
Time Specimen was Collected: 13:34
Urinalysis Reflex To Culture Urgent
Date Specimen was Collected: 10/16/24
Time Specimen was Collected: 13:34
Urine Drug Abuse Screen Urgent
Date Specimen was Collected: 10/16/24
Time Specimen was Collected: 13:34
Urine Microscopic Reflex Cult Urgent
Urine Culture Urgent
GERRI Source: U
Specimen Description:
Date Specimen was Collected: 10/16/24
Time Specimen was Collected: 13:34
10/16/24 14:30
Add On- LAB Urgent
Tests Added?: Urine qualitative HCG AND a UDS
10/16/24 15:06
CMP [Comprehensive Metabolic Panel] Urgent
Complete Blood Count/With Diff Urgent
Lipase Urgent
10/16/24 15:34
Electrocardiogram (*1) Urgent
Reason for Study: Abdominal Pain
EKG- Treatment ONCE
Famotidine [Pepcid] 20 mg IV NOW STA
Mag Hydrox/Al Hydrox/Simeth [Maalox] 30 ml Phenobarb/Hyoscy/Atropine/Scop [] 10 ml PO NOW
10/16/24 15:36
Mag Hydrox/Al Hydrox/Simeth [Maalox] 30 ml .ROUTE .STK-MED ONE
Phenobarb/Hyoscy/Atropine/Scop [] 10 ml .ROUTE .STK-MED ONE
10/16/24 15:47
Troponin I Urgent
10/16/24 17:24
Fosfomycin [Monurol] 3 gm PO ONCE ONE
Abnormal Lab Results
10/16/24 10/16/24
13:58 15:06
Chloride 110 H mmol/L
(98-107)
Leukocyte Esterase Rfl 3+ A
(Negative)
Urine RBC 7-10 A /HPF
(0-2)
Urine WBC (Reflex) 30-40 A /HPF
(0-5)
Urine Bacteria (Reflex) Moderate A
(Negative)
Urine Albumin (Reflex) 2+ A
(Neg - Trace)
Ur Amphetamines Screen Positive H
(Negative)
U Marijuana (THC) Screen Positive H
(Negative)
10/16/24 15:06
10/16/24 15:06
Vital Signs
Initial and Last Documented VS:
Initial Vital Signs
Temp Pulse Resp BP Pulse Ox
36.7 C 115 18 124/84 100
10/16/24 12:46 10/16/24 12:46 10/16/24 12:46 10/16/24 12:46 10/16/24 12:46
Last Documented Vital Signs
Temp Pulse Resp BP Pulse Ox
36.7 C 96 25 98/64 100
10/16/24 12:46 10/16/24 17:30 10/16/24 17:36 10/16/24 17:36 10/16/24 17:16
MDM/Problems Addressed
Differential Diagnosis Includes:
see MDM
MDM/Problems Addressed:
Note:
CHIEF COMPLAINT(S)
- Abdominal pain
- Speech difficulty
- History of stroke
HISTORY OF PRESENT ILLNESS
The patient is a female with a history of factor V leiden, R MCA stroke chronic L hemiparesis and more recent stroke causing some aphasia
on AC
also h/o of cholecystectomy in december, who presents with recurrent abdominal pain reminiscent of pre-cholecystectomy discomfort. The pain has persisted since the surgery and intensified recently. The patient describes the pain as a burning
sensation epigastric region and suggests it feels dalila to heartburn. She reports the pain worsening, specifically noting that it becomes more pronounced after eating. There has been no documented follow-up with a collections associate or endoscopy to
evaluate for potential ulcers.
pt admits she ate 'a bunch of gummies' before she came here and 'is fucked up.' making her speech moreslurred.
The patient smokes cigarettes despite recognition of the associated health risks, including exacerbation of hypercholesterolemia and hypertension.
pt has not had any vomiting, diarrhea, chest pain, shortness of breath
she says she is here becuase she was told she should get checked out since her son's father recently .
she has had these symptoms for months and it is not new today
she has had some dysuria but that is chronic
admits to drug use
says she is compliant with protonix
SOCIAL DETERMINANTS AFFECTING HEALTH
The patient reports significant life stressors, including of son's father. She has a history of substance use, including methamphetamine and THC. There are barriers to healthcare access as evidenced by the lack of follow-up for her
gastrointestinal symptoms.
SOCIAL HISTORY
The patient smokes cigarettes, despite being aware of the increased risk factors associated with her hypertension and hypercholesterolemia. She admits to current methamphetamine use.
PHYSICAL EXAM
- Nursing notes reviewed and vital signs reviewed.
- Abdominal exam: No acute tenderness on palpation, indicating no immediate surgical abdomen.
- Neurological exam: Speech was impaired, likely associated with previous cerebrovascular accident and compounded by current substance use.
PLAN
- Treat gastrointestinal symptoms with a gastrointestinal cocktail and famotidine.
- Recommend follow-up for potential gastrointestinal pathology, such as seeing a collections associate for further evaluation, potentially endoscopy.
- Encourage engagement with substance abuse counseling services to address methamphetamine use.
DIFFERENTIAL DIAGNOSIS
The Differential Diagnosis includes, in no particular order and is not limited to:
1. Post-cholecystectomy syndrome
2. Gastroesophageal reflux disease
3. Peptic ulcer disease
4. Gastritis
5. Pancreatitis
6. Substance-induced dyspepsia
7. Abdominal wall pain
8. Irritable bowel syndrome
9. Heart attack
10. Stress-induced gastric symptoms
CARE-UPDATE
10/16/24 - 17:14
Patient has been taking antacid medication once daily, advised to increase to twice daily for better management of gastritis. Referred to GI specialist for further evaluation. Urinary symptoms of burning sensation noted; urine analysis suggests an
infection. Patient consented to start antibiotics to address potential urinary tract infection. Cleared for discharge with son responsible for transportation.
*Pulse Oximetry
SaO2: 100
Oxygen Mode of Delivery: Room air
Patient hypoxic: no (100)
*Critical Care Note
Total Time (30-74mins, 75-104mins- exclusive of procedures): Not Applicable
ED Attending Note
-
Portions of this chart may have been created with voice recognition software.� Occasional wrong word or��sound alike� substitutions may have occurred due to the inherent limitations of voice recognition software.
Discharge Plan
Departure
Patient Disposition: Home (Routine Discharge)
Date of Disposition: 10/16/24
Time of Disposition: 17:19
Patient with high blood pressure during this ER visit?: No
Condition: Fair
Covid-19: Not Applicable
Discharge Problem:
Gastritis
Instructions: Gastritis (DC)
Prescriptions:
No Action
dextroamphetamine-amphetamine [Adderall XR] 20 mg Capsule,Extended Release 24hr
20 mg PO BID Qty: 0
pregabalin [Lyrica] 50 mg Capsule
50 mg PO BID
Xarelto 20 mg Tablet
20 mg PO DAILY
Patient Comments:
no pharmacy records and ecw from 01/28/2024
doxepin 10 mg Capsule
10 mg PO HS
pantoprazole [Protonix] 20 mg Tablet,Delayed Release (Dr/Ec)
20 mg PO DAILY
trazodone 100 mg Tablet
100 mg PO HS
zolpidem [Ambien] 5 mg Tablet
5 mg PO HSPRN PRN (Reason: sleep)
Referrals:
[place], [Family Provider] - Follow up in 5-7 days
Activity Restrictions/Additional Instructions:
Your pain could be from gastritis. You can try taking your Protonix 20 mg twice a day rather than once a day on an empty stomach.
Your blood work was otherwise reassuring. You did have signs of a UTI and we gave you an antibiotic here. Return for any concerns like vomiting blood, severe pain, inability to eat, fever or chills or any concerns otherwise follow-up with a GI
doctor.
Interventions
Interventions:
*Risk Screen - Suicide Last Done: 10/16/24 12:46
*General Assessment Last Done: 10/16/24 17:56
*Neglect/Abuse Screening Last Done: 10/16/24 12:46
*ED- Fall Risk Assessment Last Done: 10/16/24 13:30
*ED COVID-19 Vaccine History Last Done: 10/16/24 13:30
*Nursing Disposition Last Done: 10/16/24 17:56
MY-Bszxgy-Hjbxegxdhp Assessment Last Done: 10/16/24 14:09
Discharge Date and Time
Discharge Date/Time: 10/16/24 17:57
Print Language: BAHRAINI
[2024-10-16] MEDS: MONUROL 3 GM PO (17:33)
[2024-10-16 17:36] VITALS: BP 98/64
== END 2024-10-16 17:57 | disposition home or self-care (01) ==
LOC: EMR 12:43
PROVIDERS: Physician Assistant; EMERGENCY PHYSICIAN Student in an Organized Health Care Education/Training Program; FAMILY PHYSICIAN Family Medicine
DX: K29.70 Gastritis, unspecified, without bleeding (principal); I10 Essential (primary) hypertension; E78.00 Pure hypercholesterolemia, unspecified; D68.51 Activated protein C resistance; I69.320 Aphasia following cerebral infarction; I69.354 Hemiplegia and hemiparesis following cerebral infarction affecting left non-dominant side; F41.9 Anxiety disorder, unspecified; F17.210 Nicotine dependence, cigarettes, uncomplicated; Z91.198 Patient's noncompliance with other medical treatment and regimen for other reason; Z63.4 Disappearance and death of family member; Z79.01 Long term (current) use of anticoagulants; Z98.84 Bariatric surgery status; Z90.49 Acquired absence of other specified parts of digestive tract; Z82.49 Family history of ischemic heart disease and other diseases of the circulatory system
CPT/HCPCS: 99284; 96374; 80053; 80306; 80307; 81003; 81015; 81025; 83690; 84484; 85025; 87086; 93005

== ENCOUNTER 2024-10-25 08:03 | Outpatient (RCR) | payer OTHER, SELFPAY | END 2024-10-25 23:59 | disposition home or self-care (01) | LOC: RPT 08:03 | PROVIDERS: ATTENDING PHYSICIAN Internal Medicine; FAMILY PHYSICIAN Family Medicine | DX: I69.354 Hemiplegia and hemiparesis following cerebral infarction affecting left non-dominant side (principal); I69.328 Other speech and language deficits following cerebral infarction; I69.320 Aphasia following cerebral infarction; Z73.6 Limitation of activities due to disability; I69.390 Apraxia following cerebral infarction | CPT/HCPCS: 92507; 97110; 97112; 97535 ==

== ENCOUNTER 2024-11-26 13:52 | Observation (INO) | payer OTHER, SELFPAY ==
[2024-11-26 10:44] VITALS: BP 126/85
[2024-11-26 10:44] LABS: Glucose - Point of Care 81 mg/dl (70-99)
[2024-11-26 10:46] VITALS: BP 126/75
--- NOTE | 2024-11-26 10:56 | CON.NEURO ---
Consultation
Order
Date of Consultation: 11/26/24
Requesting Provider:
Reason for Consult: Stroke alert
Stroke alert: Called in at 10:40 AM
Neurology Consultation Note.
HPI: This is a 39-year-old right-handed woman who presented to [facility] on 11/26/2024 with right sided motor deficits. The patient reports waking up feeling normal before 9 AM and getting coffee. After having coffee, she suddenly
became unable to walk due to weakness in her right leg.
The patient describes the right leg as feeling weak. She denies any difficulties with her right arm or hand, and reports no issues with her face, vision, or speech (though she notes her prior speech issues are from her second stroke). She reports
no headaches or other associated symptoms. No history of seizures.
Ms. Bullard states that she has been compliant with Xarelto.
The patient has history of factor Leiden deficiency and protein C resistance.
She suffered a right MCA stroke in November 2022 and L MCA stroke in 07/2024.
ER VS: 126/85, heart rate is 102, 19, afebrile.
EKG: NSR, QTcB Int : 459 ms
PMH: Factor Leiden deficiency, protein C resistance, R MCA stroke(11/2022), L MCA stroke(07/2024), DLP, type II DM, ADD, MDD, ROSALINA, nephrolithiasis, Nicotine dependence
PSH: C-sections, tubal ligation, gastric bypass, lap cholecystectomy
SH: lives with her parents and her 2 children
All:NKDA
ROS: Positive for chronic left hemiparesis and new right leg weakness.
NIH Stroke Scale
1A Level of Consciousness: 0/3
1B LOC Questions: 0/2
1C LOC Commands: 0/2
2 Best Gaze: 0/2
3 Visual: 0/3
4 Facial Palsy: 0/3
5A Motor Arm LEFT: 1/4
5B Motor Arm RIGHT: 0/4
6A Motor Leg LEFT: 0/4
6B Motor Leg RIGHT: /4
7 Limb Ataxia: 0/2
8 Sensory: 0/2
9 Best Language: 0/3
10 Dysarthria: 0/2
11 Extinction/Inattention: 0/2
Total NIHSS: 2
Assessment and Plan:
I. Acute L NICOLLE syndrome. Not candidate for IV thrombolysis due to active systemic anticoagulation.
II. Chronic left MCA (07/2024) and right MCA (11/2022) infarcts
III. Factor Leiden deficiency, protein C resistance.
-Continue Telemetry monitoring
-Will follow-up CTA CTP results.
-Hold Xarelto and start aspirin 81 mg once a day
-Brain MRI without rosalina
-LDL, hemoglobin A1c, urine tox
-DVT prophylaxis.
I provided 35 minutes of critical care time for this patient's acute ischemic stroke. The condition critically impaired the brain and placed the patient at high risk of deterioration. Services included continuous neurological monitoring and
management of cerebral perfusion as well as consideration for thrombectomy.
Thank you for allowing us to participate in the care of this patient. We will continue to follow. Please do not hesitate to contact us with any questions or concerns.
Subjective/Objective
Subjective Data
Date of Service: November 26, 2024
Objective Data
Vital Signs
Temp Pulse Resp BP Pulse Ox
36.6 C 102 19 126/85 100
11/26/24 10:44 11/26/24 10:44 11/26/24 10:44 11/26/24 10:44 11/26/24 10:44
Patient Allergies
No Known Allergies Allergy (Verified 01/02/24 00:17)
CVA Assessment
NIH Stroke Score
Level of Consciousness: 0 - Alert
LOC Questions: 0-Answers both correctly
LOC Commands: 0-Performs both correctly
Best Horizontal Gaze: 0-Normal
Visual Luo: 0=Normal, no visual loss
Facial Palsy: 0=Normal, symmetrical
Motor - Right Arm: 0=No drift 10 seconds
Motor - Left Arm: 1=Drift < 10 seconds
Motor - Right Le-Drift < 5 seconds
Motor - Left Le-No drift 5 seconds
Limb Ataxia: 0-Absent
Sensation: 0-Normal
Best Language: 0-No aphasia
Dysarthria: 0-Normal
Extinction and Inattention: 0-No abnormality
NIH Total Score:: 2
Medications
-
Home Medications
�Medication �Instructions �Recorded
dextroamphetamine-amphetamine ER 20 mg PO BID ADHD ##0 01/02/24
20 mg 24hr capsule,extend release
(Adderall XR)
pregabalin 50 mg capsule (Lyrica) 50 mg PO BID neuropathic pain 01/02/24
rivaroxaban 20 mg tablet (Xarelto) 20 mg PO DAILY Stroke 01/02/24
doxepin 10 mg capsule 10 mg PO HS 07/11/24
pantoprazole 20 mg tablet,delayed 20 mg PO DAILY 07/11/24
release (Protonix)
trazodone 100 mg tablet 100 mg PO HS 07/11/24
zolpidem 5 mg tablet (Ambien) 5 mg PO HSPRN PRN sleep 07/11/24
Vital Signs and Labs
-
Vital Signs and Labs:
Vital Signs
Temp Pulse Resp BP Pulse Ox
36.6 C 102 19 126/85 100
11/26/24 10:44 11/26/24 10:44 11/26/24 10:44 11/26/24 10:44 11/26/24 10:44
Home Medications
-
Home Medications
dextroamphetamine-amphetamine ER 20 mg 24hr capsule,extend release (Adderall XR) 20 mg PO BID ADHD ##0 01/02/24
pregabalin 50 mg capsule (Lyrica) 50 mg PO BID neuropathic pain 01/02/24
rivaroxaban 20 mg tablet (Xarelto) 20 mg PO DAILY Stroke 01/02/24
doxepin 10 mg capsule 10 mg PO HS 07/11/24
pantoprazole 20 mg tablet,delayed release (Protonix) 20 mg PO DAILY 07/11/24
trazodone 100 mg tablet 100 mg PO HS 07/11/24
zolpidem 5 mg tablet (Ambien) 5 mg PO HSPRN PRN sleep 07/11/24
[2024-11-26 11:27] LABS: Hematocrit 38.1 % (37.0-47.0); Hemoglobin 12.6 g/dL (12.0-16.0); Mean Corp Hgb Conc. 33.1 g/dL (33.0-37.0); Mean Corpuscular Volume 89.4 fL (81.0-99.0); Nucleated Red Blood Cells % 0 %; Platelet Count 203 10^3/uL (130-400); Red Cell Dist. Width 14.6 % (11.5-14.5)
[2024-11-26 11:46] LABS: ALT (SGPT) 22 U/L (0-35); AST (SGOT) 26 U/L (14-36); Albumin 4.2 g/dl (3.5-5.0); Alkaline Phosphatase 52 U/L (38-126); Blood Urea Nitrogen 14 mg/dl (7-17); Calcium 9.4 mg/dl (8.4-10.2); Carbon Dioxide 26 mmol/L (22-30); Chloride 110 mmol/L (98-107); Glucose 98 mg/dl (70-99); Potassium 4.6 mmol/L (3.5-5.1); Sodium 140 mmol/L (135-145); Total Protein 7.0 g/dl (6.3-8.2); eGFR > 60.00
[2024-11-26] MEDS: NSS 500 IV (11:48)
[2024-11-26 11:57] LABS: Troponin I < 0.012 ng/ml
--- NOTE | 2024-11-26 12:50 | ED.CVA ---
History of Present Illness
General
Chief Complaint: CVA/TIA Symptoms
Time Seen by Provider: 11/26/24 11:02
Onset of Stroke Symptoms
Onset of symptoms known: Yes
Date of onset of symptoms: 11/26/24
History of Present Illness
History of Present Illness:
39-year-old female with history of factor V Leiden deficiency, protein seizure resistant and right MCA stroke in 2022 with a chronic left hemiparesis (upper extremity weakness more prominent but able to walk independently) presenting to the
emergency department for right-sided weakness. Patient reports that she got up around 9 AM and made a cup of coffee, then started to have weakness to her right side. Patient is on Xarelto, did not have her dose this morning. Denies any changes in
her speech. Reports chronic weakness to her left side. Denies any numbness. Denies chest pain, difficulty breathing, fever, or additional acute medical complaints
Past History
Past History
ED Past Medical History: CVA, Psychiatric (Anxiety) and Other (Factor V Deficiency, gestational diabetes, gastric sleeve)
Social History
Tobacco: Smoker
Alcohol: None
Personal:
Living: with family
Employment: Employed
Family History
Family History: CAD and Other (Breast cancer)
Phy Exam
Physical Exam
Physical Exam:
General: Well-appearing, no clinical signs of dehydration, nontoxic and in no acute distress
HEENT: protecting airway
Neck: appears supple
CV: Normal heart rate, regular rhythm
Resp: No accessory muscle use, no increased work of breathing
Abd: No distention
Extremities: Chronic contracture to the left upper extremity with chronic weakness. 5/5 strength to bilateral lower extremities and right upper extremity. Sensation grossly intact
Neuro: alert, no focal neurologic deficit
: deferred
Rectal: deferred
Psych: Normal affect
Skin: Intact
Scores
NIH Stroke Score
Level of Consciousness: 0 - Alert
LOC Questions: 0-Answers both correctly
LOC Commands: 0-Performs both correctly
Best Horizontal Gaze: 0-Normal
Visual Luo: 0=Normal, no visual loss
Facial Palsy: 0=Normal, symmetrical
Motor - Right Arm: 0=No drift 10 seconds
Motor - Left Arm: 2=Partial vs. gravity
Explanation of amputation/joint fusion: chronic
Motor - Right Le-No drift 5 seconds
Motor - Left Le-No drift 5 seconds
Limb Ataxia: 0-Absent
Sensation: 0-Normal
Best Language: 0-No aphasia
Dysarthria: 0-Normal
Extinction and Inattention: 0-No abnormality
NIH Total Score:: 2
Course
Orders/Labs/Results
Orders:
Orders
11/26/24 10:41
Electrocardiogram (*1) Urgent
Reason for Study: TIA/Stroke
11/26/24 10:42
EKG- Treatment ONCE
11/26/24 10:43
CT HEAD STROKE ALERT W/o Cont Urgent
Comment:
Reason For Exam: stroke alert
11/26/24 11:09
CT BRAIN PERF STROKE ALERT Urgent
Comment:
Reason For Exam: right sided weakness
CT HEAD/NECK ANG STROKE ALERT Urgent
Comment:
Reason For Exam: right sided weakness
11/26/24 11:16
0.9% Sodium Chloride 500 ml [Nss] 500 ml IV BOLUS
11/26/24 11:19
Cardiovascular Evaluation Urgent
Comment: ADD ON
Complete Blood Count/With Diff Urgent
Comprehensive Metabolic Panel Urgent
Glycohemoglobin (HgbA1c) Urgent
Troponin I Urgent
11/26/24 13:39
Admit/Transfer Patient As Directed
Co-Sign Provider:
Level of Care: Observation services
Assign to:: Telemetry
Physician / Group: [email or web address]
Diagnosis: right leg weakness
Reason for Telemetry: Arrhythmia
Date to Stop Telemetry: 11/29/24
Time to Stop Telemetry: 11:00
11/26/24 13:40
Code Status As Directed
Resuscitation Status: Full Code
PRN Pain Medication Management As Directed
May give lesser potent ordered pain med per pt: Yes
preference::
Protocol:: Medication orders for pain may be administered in a
manner that supports deferring to patient preference
when the pt is:
- Requesting an ordered lesser potent pain medication.
Least to most potent pain medications are defined
as: acetaminophen < NSAID < tramadol < opioids
(morphine, oxycodone, hydromorphone).
- Requesting a lesser dose of the same medication IF
ORDERED.
- Requesting a less intrusive route of administration
if both routes are prescribed by the provider (PO <
IV).
11/26/24 14:00
Aspirin Chewable [Low Strength Aspirin] 81 mg PO DAILY
11/26/24 14:35
NEUROLOGY CONSULT Routine
Consulting Provider: Yenny Kapadia
Was physician already notified: Yes
MRI Brain [MR Brain Without Contrast] Routine
Comment:
Reason For Exam: right weakness
Recent pill cam endoscopy?: No
Activity As Directed
Activity Level: As Tolerated
Pneumatic Compression Sleeves As Directed
Type: Knee high
Vital Signs As Directed
Frequency: Per unit guidelines
Ot Eval And Treat Routine
Pt Eval And Treat Routine
Activity Level: As Tolerated
Speech Therapy Eval & Treat Routine
DX Deep Vein Thrombosis Video Routine
11/26/24 Dinner
Regular
At Your Request: Full Participation
Does patient need a safe tray?: No
11/26/24 20:00
Pregabalin [Lyrica] 50 mg PO BID
11/26/24 22:00
Zolpidem Tartrate [Ambien] 10 mg PO HS
11/27/24 06:00
Complete Blood Count/With Diff IN AM
Comprehensive Metabolic Panel IN AM
11/27/24 08:00
Atorvastatin [Lipitor] 40 mg PO DAILY
Pantoprazole [Protonix] 40 mg PO DAILY
lisdexamfetamine 20 mg PO DAILY
11/29/24 11:00
DC Protocol for Telemetry ONCE
Abnormal Lab Results
11/26/24
11:19
RDW 14.6 H %
(11.5-14.5)
Chloride 110 H mmol/L
(98-107)
11/26/24 11:19
11/26/24 11:19
Vital Signs
Initial and Last Documented VS:
Initial Vital Signs
Temp Pulse Resp BP Pulse Ox
97.9 F 102 19 126/85 100
11/26/24 10:44 11/26/24 10:44 11/26/24 10:44 11/26/24 10:44 11/26/24 10:44
Last Documented Vital Signs
Temp Pulse Resp BP Pulse Ox
97.9 F 96 20 129/86 100
11/26/24 14:40 11/26/24 14:40 11/26/24 14:40 11/26/24 14:40 11/26/24 14:40
MDM/Problems Addressed
MDM/Problems Addressed:
39-year-old female with hx of factor V Leiden deficiency, protein seizure resistant and right MCA stroke in 2022 with a chronic left hemiparesis presenting for acute right-sided weakness. Vital signs on arrival are normal.
On exam patient is resting comfortably, no acute distress or discomfort. Patient was made a stroke alert given history and acute neurologic symptoms. With neurology at bedside, deemed not a candidate given anticoagulation status. Additionally,
low NIH stroke scale. Plan for CT/CTA/CT perfusion.
13:00 - without acute findings, does show chronic findings particularly to the M2 segment of the MCA. In discussion with neurology, recommending admission for continued monitoring and likely MRI
*Pulse Oximetry
SaO2: 99
Oxygen Mode of Delivery: Room air
Patient hypoxic: no
*EKG
Interpreted by ED Provider?: Yes
EKG Intrepretation Date: 11/26/24
EKG Intrepretation Time: 12:58
Interpretation: normal
Comparison EKG: no changes
Heart Rate: 97
Rate: normal
Rhythm: sinus
[place]: normal axis
Interval: normal interval
QRS Pattern: normal QRS
Ischemia: no ischemia
*Critical Care Note
Total Time (30-74mins, 75-104mins- exclusive of procedures): Not Applicable
ED Attending Note
-
Portions of this chart may have been created with voice recognition software.� Occasional wrong word or��sound alike� substitutions may have occurred due to the inherent limitations of voice recognition software.
Discharge Plan
Departure
Patient Disposition: Admit
Date of Disposition: 11/26/24
Time of Disposition: 13:20
Presentation/result/management discussed w/ accepting MD/DO: Hospitalist
Patient with high blood pressure during this ER visit?: No
Condition: Fair
Discharge Problem:
Stroke-like symptoms
Interventions
Interventions:
*Risk Screen - Suicide Last Done: 11/26/24 14:37
*General Assessment Last Done: 11/26/24 11:04
*Neglect/Abuse Screening Last Done: 11/26/24 11:04
*ED- Fall Risk Assessment Last Done: 11/26/24 11:04
*ED COVID-19 Vaccine History Last Done: 11/26/24 14:37
*Nursing Disposition Last Done: 11/26/24 14:27
ED- Pulmonary Assessment Last Done: 11/26/24 11:05
ED- Neurological Assessment Last Done: 11/26/24 11:05
ED- Cardiac Assessment Last Done: 11/26/24 11:05
ED Swallowing Screen Last Done: 11/26/24 11:05
Discharge Date and Time
Discharge Date/Time: 11/26/24 14:29
--- NOTE | 2024-11-26 13:44 | HPS.HSE ---
Family Physician
-
Family Physician: Syed Kelly, DO
Chief Complaint
-
right sided weakness
History of Present Illness
39-year-old female past medical history of factor V Leyden deficiency on Xarelto, protein C resistance, right MCA stroke in 2022, left MCA stroke in July 2024, hyperlipidemia, diabetes, anxiety/depression, ADD, nephrolithiasis, nicotine dependence,
presenting for right-sided leg weakness. She got up around 9 AM and made a cup of coffee then started to have weakness on her right side. No numbness.
Denies any new changes in speech but has chronic slurred speech from her prior stroke. Has chronic weakness of her left side from prior stroke. Denies any numbness or tingling. Denies chest pain shortness of breath or fever.
He smokes less than a half a pack of cigarettes per day.
Her mother had strokes.
Her sister had clotting disorder.
Medical History
Past Medical History
Past Medical History: Reports Other (factor V Leyden deficiency on Xarelto, protein C resistance, right MCA stroke in 2022, left MCA stroke in July 2024, hyperlipidemia, diabetes, anxiety/depression, ADD, nephrolithiasis, nicotine dependence)
Past Surgical History: Reports Other (C-sections, tubal ligation, gastric bypass, lap cholecystectomy)
Social History
Tobacco: Smoker
Alcohol: Occasional
Drug: None
Family History
Family History: Not pertinent
Allergies / Home Medications
Allergies reflects when Allergies were last updated in [facility].
Home Medications with original date entered in [facility]
Allergy/Medication List:
Allergies
Allergy/AdvReac Type Severity Reaction Status Date / Time
No Known Allergies Allergy Verified 01/02/24 00:17
Home Medications
pregabalin 50 mg capsule (Lyrica) 50 mg PO BID neuropathic pain 01/02/24
rivaroxaban 20 mg tablet (Xarelto) 20 mg PO DAILY Stroke 01/02/24
atorvastatin 40 mg tablet 40 mg PO DAILY 11/26/24
ibuprofen 200 mg tablet 800 mg PO DAILYPRN PRN mild pain 11/26/24
lisdexamfetamine 20 mg capsule 20 mg PO DAILY 11/26/24
pantoprazole 40 mg tablet,delayed release 40 mg PO DAILY 11/26/24
zolpidem 10 mg tablet 10 mg PO HS 11/26/24
Review of Systems
-
History Source: Patient
A 12 point ROS was completed and negative except as noted: Yes
Constitutional: Reports No Symptoms
EENT: Reports No Symptoms
Respiratory: Reports No Symptoms
Cardiac: Reports No Symptoms
Abdomen/GI: Reports No Symptoms
: Reports No Symptoms
Musculoskeletal: Reports No Symptoms
Skin: Reports No Symptoms
Neurological: Reports No Symptoms
Endocrine: Reports No Symptoms
Hematologic/Lymphatic: Reports No Symptoms
Psych: Reports No Symptoms
Physical Exam
Vital Signs
Vital Signs
Temp Pulse Resp BP Pulse Ox
97.9 F 78 18 126/75 99
11/26/24 10:44 11/26/24 12:00 11/26/24 12:00 11/26/24 10:46 11/26/24 12:51
Physical Exam
General: Well Developed, Well Nourished and No Apparent Distress
HEENT: NormoCephalic, Moist mucous membranes and Atraumatic
Respiratory: Clear
Cardiac: S1/S2 and Regular Rhythm; No Murmur or Rub
GI: Soft, Non Tender, Non Distended and Normal Bowel Sounds; No Organomegaly
Rectal: Deferred by Provider
Musculoskeletal: No Clubbing, No Cyanosis and No Edema
Skin: No Rash
Neuro: Nonfocal/grossly intact
Laboratory Results
-
11/26/24 11:19
11/26/24 11:19
Laboratory Results
Total Bilirubin 0.4 mg/dl (0.2-1.3) 11/26/24 11:19
AST 26 U/L (14-36) 11/26/24 11:19
ALT 22 U/L (0-35) 11/26/24 11:19
Alkaline Phosphatase 52 U/L (38-126) 11/26/24 11:19
Troponin I < 0.012 ng/ml 11/26/24 11:19
Data Reviewed
-
Lab Data: Labs Reviewed by me
Old Records: Reviewed
Impression/Plan
-
IMPRESSION:
PLAN:
# Right-sided weakness concerning for acute CVA
# History of right MCA stroke in 2022, left MCA stroke in July 2024 with chronic left-sided weakness/slurred speech
-Neurological examination currently at baseline with chronic left-sided weakness and contracture of left hand
-CT head shows bilateral old infarcts
-CTA head and neck shows significant stenosis or occlusion of the inferior division of the distal M2 segment of the left middle cerebral artery comparable to previously
- Not a candidate for thrombolysis due to Xarelto use
- Hold Xarelto and aspirin started as per neurology
- Check MRI brain
- Check A1c and lipid panel
- Neurology following
- PT OT, speech evaluate
- Continue statin
Factor V Leyden deficiency, protein C resistance
- Hold Xarelto for now
Type 2 diabetes
Neuropathy
- Continue pregabalin
Hyperlipidemia
Anxiety/depression
- Continue trazodone
ADHD
- Continue Adderall, doxepin
Nephrolithiasis
Nicotine dependence
History of gastric bypass
- Continue Protonix
Full code
DVT prophylaxis�SCDs
Regular diet
[2024-11-26] MEDS: LOW STRENGTH ASPIRIN 81 MG PO (13:54)
--- NOTE | 2024-11-26 14:18 | CM ---
CM reviewed chart and met with pt bedside in ED. Lives with her father, 2 story home, pt lives in basement, no BISMARK from outside, has full bath, 7 steps to kitchen.
Independent in ambulation and personal care, has L hemiparesis from prior stroke, needs assistance with ADLs, father assists
Confirms prescription coverage.
No hx VN, hx Lassiter after previous stroke
PCP: Syed Kelly
Pharmacy: [facility]
CM will continue to follow for all discharge planning needs.
[2024-11-26 14:40] VITALS: BP 129/86
[2024-11-26 15:09] LABS: HDL Cholesterol 56 mg/dl; LDL Cholesterol, Calculated 51 mg/dl; Very Low Density Lipoprotein 12 mg/dl (0-30)
--- NOTE | 2024-11-26 15:30 | PTCARENOTE ---
Patient arrived from ED, via stretcher. X 1 assist from stretcher to bed, in room. VSS. Sinus tach on telemetry box 27. Patient denies pain. Upon assessment, left sided weakness with left wrist and hand contracture. RLE weakness. Slurred speech.
Minimal left facial droop. Left sided numbness and tingling. Sensations are intact. Home medications reviewed with patient. Admission intake completed. Patient's son to bring in phone manager corporate strategy and home medication, that is nonformulary here, at [facility].
Patient oriented to room. Patient educated on importance of utilizing the call stephens prior to getting OOB, Patient agreeable and adherent. All patient needs met. Patient updated, by this RN, on plan of care and treatments/procedures during her stay.
Bed in lowest position. Call stephens and personal belongings within reach.
[2024-11-26 19:22] VITALS: BP 127/78
[2024-11-26] MEDS: LYRICA 50 MG PO (19:24)
[2024-11-26] MEDS: AMBIEN 10 MG PO (20:07)
[2024-11-26 23:22] VITALS: BP 112/77
[2024-11-27 03:21] VITALS: BP 111/62
[2024-11-27 08:00] VITALS: BP 109/63
[2024-11-27] MEDS: LIPITOR 40 MG PO (08:00)
[2024-11-27] MEDS: LYRICA 50 MG PO (08:00)
[2024-11-27] MEDS: PROTONIX 40 MG PO (08:00)
[2024-11-27] MEDS: LOW STRENGTH ASPIRIN 81 MG PO (08:00)
--- NOTE | 2024-11-27 08:33 | W.PN.HOSP.TC ---
Addendum entered and electronically signed by Diandra Sandoval MD, Resident 11/27/24 16:07:
Following discussion with patient, she had not been taking Xarelto regularly, so it was not a failure of Xarelto which lead to these infarcts. Hematology consult was cancelled and so was Echocardiogram order. As per discussion with Neurology,
patient should continue aspirin and can resume Xarelto starting tomorrow. Patient to be discharge home with instructions to continue taking medication regularly and to not skip doses.
Addendum entered and electronically signed by Cullen Holguin DO 11/27/24 12:57:
MRI returned positive for multifocal acute/subacute infarcts. Question antiphospholipid syndrome as she had these events while on DOAC. Hematology consulted. Will need antiphospholipid testing though will need to be off of DOAC for at least 48
hours. Suspicion remains high for hypercoagulable etiology though will order echo and consider OP loop recorder to rule out cardioembolic etiologies.
Original Note:
Today's Communication/Plan
-
MRI Today
PT/OT/Speech Eval
Continue Neurochecks for now
Assessment / Plan
Assessment / Plan
Assessment:
39-year-old female with a past medical history of factor V Leiden deficiency, protein C resistance and right MCA stroke in 2022 with chronic left hemiparesis along with left MCA stroke in July 2024, hyperlipidemia, diabetes, anxiety/depression, ADD,
nicotine use came to the ED due to right-sided leg weakness that had been causing her to have numerous falls at home. She does not had any changes in speech that differ from her chronic conditions and does not have any other acute neurological
changes other than this right sided lower extremity weakness. In the ED patient underwent CT head, CTA head and neck which showed occlusion of the inferior division of the distal M2 segment of the left middle cerebral artery which was comparable to
previous studies. Patient Xarelto was held and patient was started on aspirin as per neurology. Currently scheduled for MRI of the brain this morning for further assessment.
Plan:
# Right-sided lower extremity weakness leading to falls, concerning for acute CVA
# History of right MCA stroke in 2022, left MCA stroke in July 2024 with chronic left-sided weakness/slurred speech
- Continued neurochecks do not show any focal neurological deficits. NIH scores have been within normal range
- Neurology following, input appreciated
- CT head shows bilateral old infarcts
- CTA head and neck shows significant stenosis or occlusion of the inferior division of the distal M2 segment of the left middle cerebral artery comparable to previously
- Not a candidate for thrombolysis therapy as per neurology due to history of anticoagulation with Xarelto
- Hold Xarelto and continuing aspirin as per neurology
- Checking MRI brain without contrast
- Check A1c and lipid panel
- PT OT, speech evaluate today
- Continue statin
# Factor V Leyden deficiency, protein C resistance
- Holding Xarelto for now, continuing aspirin
# Type 2 diabetes
- Continue low low resistance insulin sliding scale
# Neuropathy
- Continue pregabalin
# Hyperlipidemia
- Continue atorvastatin
# Anxiety/depression
- Continue trazodone
# ADHD
- Continuing patient's own Adderall
#Nicotine dependence
-Nicotine patch
#History of gastric bypass
- Continue Protonix
Full code
DVT prophylaxis�SCDs
Anticipated Discharge: Within 24 hours
Subjective/Interval History
-
Date of Service: November 27, 2024
Patient seen this morning, was resting comfortably in her bed. Reports that her symptoms are much improved and she is able to move her right leg a lot more. Says that she has been able to walk to the bathroom herself and has no issues currently.
Says that she can tell whenever she is about to lose balance or fall as she has fallen a couple times at home recently. Overall feeling much improved, reports that she has no difficulty eating, no difficulty with vision, no shortness of breath, no
chest pain or difficulty breathing.
Objective Data
-
Labs:
Laboratory Results
11/27/24
08:15
WBC Pending
Hgb Pending
Hct Pending
Plt Count Pending
Sodium Pending
Potassium Pending
Chloride Pending
Carbon Dioxide Pending
BUN Pending
Creatinine Pending
Glucose Pending
Calcium Pending
Total Bilirubin Pending
AST Pending
ALT Pending
Alkaline Phosphatase Pending
Vital Signs:
Vital Signs
Temp Pulse Resp BP Pulse Ox
97.9 F 72 20 109/63 99
11/27/24 08:00 11/27/24 08:00 11/27/24 08:00 11/27/24 08:00 11/27/24 08:00
I&O
11/26/24 11/27/24 11/28/24
06:59 06:59 06:59
Intake Total 640 / 640
Balance 640 / 640
Review of Systems
-
History Source: Patient
Constitutional: Reports No Symptoms
EENT: Reports No Symptoms Reported
Respiratory: Reports No Symptoms
Cardiac: Reports No Symptoms
Abdomen/GI: Reports No Symptoms
Genitourinary: Reports No Symptoms
Skin: Reports No Symptoms
Neuro: Reports Weakness (Weakness in right leg has resolved)
Endocrine: Reports No Symptoms
Hematologic / Lymphatic: Reports No Symptoms
Physical Exam
-
General: Well Developed, Well Nourished, No Apparent Distress and Conversant
HEENT: Normocephalic and Atraumatic
Respiratory: Clear to Auscultation and Non Labored Respirations
Cardiac: Regular Rhythm and S1/S2
GI: Soft, Nontender and Nondistended
Genito-urinary: No Costovertebral Tender
Musculoskeletal: No Clubbing, No Cyanosis and No Edema
Skin: Warm and Dry
Neuro: Awake, Alert, Oriented, AO x 3, No Motor Deficits and Facial Droop (Mild right sided facial droop)
Psych: Calm
Data Reviewed
-
CT Scan: Report Reviewed by me, Discussed with Physician and Discussed with Patient
Labs: Labs Reviewed by me, Discussed with Physician and Discussed with Patient
[2024-11-27 08:41] LABS: Hematocrit 35.7 % (37.0-47.0); Hemoglobin 11.8 g/dL (12.0-16.0); Mean Corp Hgb Conc. 33.1 g/dL (33.0-37.0); Mean Corpuscular Volume 88.1 fL (81.0-99.0); Nucleated Red Blood Cells % 0 %; Platelet Count 166 10^3/uL (130-400); Red Cell Dist. Width 14.4 % (11.5-14.5)
[2024-11-27 09:06] LABS: ALT (SGPT) 19 U/L (0-35); AST (SGOT) 20 U/L (14-36); Albumin 3.9 g/dl (3.5-5.0); Alkaline Phosphatase 60 U/L (38-126); Blood Urea Nitrogen 10 mg/dl (7-17); Calcium 9.0 mg/dl (8.4-10.2); Carbon Dioxide 24 mmol/L (22-30); Chloride 110 mmol/L (98-107); Glucose 84 mg/dl (70-99); Sodium 140 mmol/L (135-145); Total Protein 6.6 g/dl (6.3-8.2); eGFR > 60.00
[2024-11-27 09:11] LABS: Potassium 4.0 mmol/L (3.5-5.1)
--- NOTE | 2024-11-27 09:18 | W.PN.NEURO.1 ---
Today's Communication / Plan
-
.
Subjective/Objective
Subjective Data
Date of Service: November 27, 2024
Neurology Follow up note
HPI: Ms. Bullard reports improvement in her right leg strength. However, she reports persistent numbness in her right buttock. The patient can stand up and walk, and she has full sensation in her right arm.
The patient admits to possibly missing a couple of doses of Xarelto prior the admission
The patient uses a medication organizer to manage her prescriptions.
Brain MRI wo christopher- several scattered tiny nonhemorrhagic acute/subacute infarcts throughout the left parietal and occipital lobes and left cerebellar hemisphere.
PMH: Factor Leiden deficiency, protein C resistance, R MCA stroke(11/2022), L MCA stroke(07/2024), DLP, type II DM, ADD, MDD, CHRISTOPHER, nephrolithiasis, Nicotine dependence
PSH: C-sections, tubal ligation, gastric bypass, lap cholecystectomy
SH: lives with father and two children, ages 19 and 16
All:NKDA
ROS: Positive for chronic left hemiparesis and new right leg weakness.
HEENT: Negative for headaches, vision changes.
Musculoskeletal: Positive for right buttock numbness.
Neurological: Negative for right arm numbness.
Assessment and Plan:
I. 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 Likely etiology-known thrombophilia in settings partial compliance.
II. Chronic left MCA (07/2024) and right MCA (11/2022) infarcts
III. Factor Leiden deficiency, protein C resistance.
-Continue Telemetry monitoring
-Restart Xarelto in 3 days if no clinical worsening
-Continue aspirin 81 mg once a day
-PT OT
-Would defer further evaluation as OP
-Educated patient on importance of occasion adherence and multi-dose adherence packaging service form [facility], [facility] by [facility], [facility], ect.
-Outpatient neurology follow
-DVT prophylaxis.
I personally reviewed all radiology and labs along with past medical records pertinent to current medical problems. Total time spent in patient care is 35 minutes.
Thank you for allowing us to participate in the care of this patient. We will continue to follow. Please do not hesitate to contact us with any questions or concerns.
Objective Data
Vital Signs
Temp Pulse Resp BP Pulse Ox
36.6 C 72 20 109/63 99
11/27/24 08:00 11/27/24 08:00 11/27/24 08:00 11/27/24 08:00 11/27/24 08:00
Lab Results
11/27/24 08:15
11/27/24 08:15
Sodium 140 mmol/L (135-145) 11/27/24 08:15
Potassium 4.0 mmol/L (3.5-5.1) 11/27/24 08:15
BUN 10 mg/dl (7-17) 11/27/24 08:15
Glucose 84 mg/dl (70-99) 11/27/24 08:15
Calcium 9.0 mg/dl (8.4-10.2) 11/27/24 08:15
LDL Cholesterol, Calc Cancelled 11/26/24 14:35
Ur Buprenorphine Negative (Negative) 11/27/24 03:47
Patient Allergies
No Known Allergies Allergy (Verified 01/02/24 00:17)
Vital Signs and Labs
-
Vital Signs and Labs:
Vital Signs
Temp Pulse Resp BP Pulse Ox
36.6 C 72 20 109/63 99
11/27/24 08:00 11/27/24 08:00 11/27/24 08:00 11/27/24 08:00 11/27/24 08:00
Lab Results
11/27/24 08:15
11/27/24 08:15
Sodium 140 mmol/L (135-145) 11/27/24 08:15
Potassium 4.0 mmol/L (3.5-5.1) 11/27/24 08:15
BUN 10 mg/dl (7-17) 11/27/24 08:15
Glucose 84 mg/dl (70-99) 11/27/24 08:15
Calcium 9.0 mg/dl (8.4-10.2) 11/27/24 08:15
LDL Cholesterol, Calc Cancelled 11/26/24 14:35
Ur Buprenorphine Negative (Negative) 11/27/24 03:47
Medications
-
Medications:
Generic Name Dose Route Start Last Admin
Trade Name Freq PRN Reason Stop Dose Admin
Aspirin 81 mg 11/26/24 14:00 11/27/24 08:00
Aspirin 81 Mg Chewable Tablet PO 12/24/24 13:59 81 mg
DAILY DES Administration
Atorvastatin Calcium 40 mg 11/27/24 08:00 11/27/24 08:00
Atorvastatin (Lipitor) 40 Mg Tablet PO 12/25/24 07:59 40 mg
DAILY DES Administration
Dextrose 12.5 grams 11/27/24 08:43
Dextrose 50% (0.5 Grams/Ml) 50 Ml Syringe IV 12/25/24 08:42
[id number] PRN
hypoglycemia
Protocol
Glucagon 1 mg 11/27/24 08:43
Glucagon 1 Mg Vial IM 12/25/24 08:42
PRN PRN
hypoglycemia
Protocol
Insulin Aspart 0 units 11/27/24 11:30
Insulin Aspart Low Resistance 300 Units/3 Ml Pen.Injctr SC 12/25/24 11:29
AC DES
Protocol
Nicotine 14 mg 11/27/24 11:00
Nicotine 14 Mg Patch TRANSDERM 12/25/24 10:59
DAILY DES
Lisdexamfetamine 20 20 mg 11/27/24 08:00
Mg Capsule (Vyvanse) PO 12/25/24 07:59
Po Daily DAILY DES
Pantoprazole Sodium 40 mg 11/27/24 08:00 11/27/24 08:00
Pantoprazole 40 Mg Delayed Release Tablet PO 12/25/24 07:59 40 mg
DAILY DES Administration
Pregabalin 50 mg 11/26/24 20:00 11/27/24 08:00
Pregabalin 50 Mg Capsule PO 12/24/24 19:59 50 mg
BID DES Administration
Zolpidem Tartrate 10 mg 11/26/24 22:00 11/26/24 20:07
Zolpidem Tartrate 10 Mg Tablet PO 12/24/24 21:59 10 mg
HS DES Administration
Home Medications
-
Home Medications
pregabalin 50 mg capsule (Lyrica) 50 mg PO BID neuropathic pain 01/02/24
rivaroxaban 20 mg tablet (Xarelto) 20 mg PO DAILY Stroke 01/02/24
atorvastatin 40 mg tablet 40 mg PO DAILY 11/26/24
ibuprofen 200 mg tablet 800 mg PO DAILYPRN PRN mild pain 11/26/24
lisdexamfetamine 20 mg capsule 20 mg PO DAILY 11/26/24
pantoprazole 40 mg tablet,delayed release 40 mg PO DAILY 11/26/24
zolpidem 10 mg tablet 10 mg PO HS 11/26/24
[2024-11-27 10:00] VITALS: BP 125/75; PULSE 85; O2SAT 97
[2024-11-27 10:36] VITALS: BP 125/75; PULSE 87; O2SAT 97
[2024-11-27 10:43] LABS: Glycohemoglobin (HgbA1c) 5.7 % (4.0-5.6)
[2024-11-27 11:45] VITALS: BP 104/68
[2024-11-27 12:30] LABS: Glucose - Point of Care 95 mg/dl (70-99)
[2024-11-27 15:15] VITALS: BP 104/66
--- NOTE | 2024-11-27 16:09 | W.DCSUMMARY ---
Documented by User: Diandra Sandoval MD, Resident 11/27/24 16:20
Discharge Summary
Discharge Data
Date of Admission: 11/26/24
Date of Discharge: 11/27/24
-
Pending Results: No
Hospital Course
Discharging Physician : Dr. Cullen Holguin, Dr. Diandra Sandoval
Disposition : Home
Primary care physician : Syed Kelly DO
Principal Discharge diagnosis :
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 Likely etiology-known thrombophilia in settings partial compliance.
Chronic Discharge diagnosis :
Chronic left MCA (07/2024) and right MCA (11/2022) infarcts
Factor Leiden deficiency, protein C resistance.
Hospital Course :
39-year-old female with a past medical history of factor V Leiden deficiency, protein C resistance and right MCA stroke in 2022 with chronic left hemiparesis along with left MCA stroke in July 2024, hyperlipidemia, diabetes, anxiety/depression, ADD,
nicotine use came to the ED due to right-sided leg weakness that had been causing her to have numerous falls at home. She does not had any changes in speech that differ from her chronic conditions and does not have any other acute neurological
changes other than this right sided lower extremity weakness. In the ED patient underwent CT head, CTA head and neck which showed occlusion of the inferior division of the distal M2 segment of the left middle cerebral artery which was comparable to
previous studies. Patient's Xarelto was held and patient was started on aspirin as per neurology. MRI later in the day showed several scattered tiny nonhemorrhagic acute/subacute infarcts throughout the left parietal and occipital lobes and left
cerebellar hemisphere which may be of embolic etiology. Following discussion with patient, it was found that she had not been compliant with her Xarelto and had been missing several doses. She was counseled that she needs to take the medication
regularly. Patient was counseled to continue taking daily aspirin and resume her Xarelto starting tomorrow. Patient was discharged home with instructions to follow up with her PCP within a week.
Important imaging findings :
CTA Head and Neck:
No demonstrable carotid atherosclerotic narrowing bilaterally.
No findings to suggest internal carotid artery or vertebral artery dissection bilaterally.
Brain MRI w/o Contrast:
Several scattered tiny nonhemorrhagic acute/subacute infarcts throughout the left parietal and occipital lobes and left cerebellar hemisphere. Findings may be of embolic etiology.
Procedure findings : N/A
Discharge Plan
-
Patient Disposition: Home (Routine Discharge)
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 Likely etiology-known thrombophilia in settings partial compliance.
Chronic left MCA (07/2024) and right MCA (11/2022) infarcts
Factor Leiden deficiency, protein C resistance.
Condition: Fair
Diet: Regular
Activity: No restrictions
Driving Restrictions: As prior to admission
Bathing Restrictions: None
Referrals:
Syed Kelly, [Family Provider] - in less than 1 week
Referral Note: Please follow up with your PCP within 1 week
Additional Discharge Medication Instructions: Continue taking daily aspirin 81mg
Continue taking Xarelto 20mg once a day starting tomorrow
Please follow up with your PCP within 1 week for further management of your condition.
Prescriptions:
New
aspirin 81 mg Tablet,Chewable
81 mg PO DAILY Qty: 30 0RF
Xarelto 20 mg tablet
20 mg PO DAILY Qty: 30 0RF
Continued
pregabalin [Lyrica] 50 mg Capsule
50 mg PO BID
atorvastatin 40 mg tablet
40 mg PO DAILY
pantoprazole 40 mg tablet,delayed release (DR/EC)
40 mg PO DAILY
ibuprofen 200 mg Tablet
800 mg PO DAILYPRN PRN (Reason: mild pain)
zolpidem 10 mg tablet
10 mg PO HS
lisdexamfetamine 20 mg capsule
20 mg PO DAILY
Discontinued
Xarelto 20 mg Tablet
20 mg PO DAILY
Patient Comments:
no pharmacy records, possibly samples, pt states that 'the pharmacy gave me so many the first time, I never have to refill it.'
Discharge Orders:
Discharge Patient (As Directed); Ordered 11/27/24
Ordered By: Diandra Sandoval
Discharge Date and Time
Print Language: BELARUSIAN

Documented by User: Cullen Holguin DO 11/27/24 17:10
Discharge Summary
Discharge Data
Date of Admission: 11/26/24
Date of Discharge: 11/27/24
Total time spent discharging patient (in min): 33
Discharge Plan
-
Patient Disposition: Home (Routine Discharge)
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 Likely etiology-known thrombophilia in settings partial compliance.
Chronic left MCA (07/2024) and right MCA (11/2022) infarcts
Factor Leiden deficiency, protein C resistance.
Condition: Fair
Diet: Regular
Activity: No restrictions
Driving Restrictions: As prior to admission
Bathing Restrictions: None
Referrals:
Syed Kelly DO [Family Provider] - in less than 1 week
Referral Note: Please follow up with your PCP within 1 week
Additional Discharge Medication Instructions: Continue taking daily aspirin 81mg
Continue taking Xarelto 20mg once a day starting tomorrow
Please follow up with your PCP within 1 week for further management of your condition.
Prescriptions:
New
aspirin 81 mg Tablet,Chewable
81 mg PO DAILY Qty: 30 0RF
Xarelto 20 mg tablet
20 mg PO DAILY Qty: 30 0RF
Continued
pregabalin [Lyrica] 50 mg Capsule
50 mg PO BID
atorvastatin 40 mg tablet
40 mg PO DAILY
pantoprazole 40 mg tablet,delayed release (DR/EC)
40 mg PO DAILY
ibuprofen 200 mg Tablet
800 mg PO DAILYPRN PRN (Reason: mild pain)
zolpidem 10 mg tablet
10 mg PO HS
lisdexamfetamine 20 mg capsule
20 mg PO DAILY
Discontinued
Xarelto 20 mg Tablet
20 mg PO DAILY
Patient Comments:
no pharmacy records, possibly samples, pt states that 'the pharmacy gave me so many the first time, I never have to refill it.'
Discharge Orders:
Discharge Patient (As Directed); Ordered 11/27/24
Ordered By: Diandra Sandoval
Discharge Date and Time
Print Language: BELARUSIAN
--- NOTE | 2024-11-27 16:28 | PTOTSP ---
Speech-Language Evaluation
Pt seen for bedside swallow assessment and cognitive-communication assessment. Pt with PMH of R MCA Stroke in 2022 with chronic left hemiparesis and L MCA stroke in 07/2024 which resulted in dysarthria. Pt scored 7.99 on Quick Aphasia Battery (QAB),
yielding some deficits in sentence comprehension, word finding, grammatical construction, and speech motor programming. Normal scores fall between 8.9-10. Pt scored 24/30 on MOCA (normal >26) indicating some cognitive deficits in recall and verbal
expression. 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 Pt reports language skills are near baseline.
Pt accepted PO trials of regular solids and thin liquids. Denied baseline dysphagia. Pt managed PO trials with no overt s/sx of aspiration. Pt at an elevated risk of aspiration given PMH of strokes.�
Recommendation:�
1. IDDSI 7 Regular solids, IDDSI 0 Thin liquids
2. Medication as best tolerated
3. Standard aspiration precautions
4. QUALITY ASSURANCE MONITOR to follow for speech treatment
5. Continue outpatient speech services upon discharge from inpatient care
== END 2024-11-27 17:15 | disposition home or self-care (01) ==
LOC: 4 WEST ACU 13:52
PROVIDERS: Nurse Practitioner Family; ADMITTING PHYSICIAN Hospitalist; ATTENDING PHYSICIAN Internal Medicine; CONSULT PHYSICIAN Psychiatry & Neurology Neurology; EMERGENCY PHYSICIAN Student in an Organized Health Care Education/Training Program; FAMILY PHYSICIAN Family Medicine
DX: I63.532 Cerebral infarction due to unspecified occlusion or stenosis of left posterior cerebral artery (principal); R53.1 Weakness; G81.91 Hemiplegia, unspecified affecting right dominant side; D68.51 Activated protein C resistance; F32.A Depression, unspecified; F41.1 Generalized anxiety disorder; R29.818 Other symptoms and signs involving the nervous system; F90.9 Attention-deficit hyperactivity disorder, unspecified type; R29.6 Repeated falls; F17.210 Nicotine dependence, cigarettes, uncomplicated; R47.81 Slurred speech; E78.5 Hyperlipidemia, unspecified; E11.40 Type 2 diabetes mellitus with diabetic neuropathy, unspecified; Z79.01 Long term (current) use of anticoagulants; Z91.148 Patient's other noncompliance with medication regimen for other reason; Z87.442 Personal history of urinary calculi; Z86.32 Personal history of gestational diabetes; Z80.3 Family history of malignant neoplasm of breast; Z79.82 Long term (current) use of aspirin; Z98.51 Tubal ligation status; Z90.49 Acquired absence of other specified parts of digestive tract; Z98.84 Bariatric surgery status; Z79.899 Other long term (current) drug therapy; Z82.49 Family history of ischemic heart disease and other diseases of the circulatory system; Z83.2 Family history of diseases of the blood and blood-forming organs and certain disorders involving the immune mechanism; Z86.73 Personal history of transient ischemic attack (TIA), and cerebral infarction without residual deficits
CPT/HCPCS: 0042T; 70450; 70496; 70498; 70551; 80053; 80061; 80306; 80307; 82962; 83036; 84484; 85025; 92610; 93005; 96360; 97162; 97166; 99285; G0378; Q9967

== ENCOUNTER 2024-12-06 10:38 | Outpatient (RCR) | payer OTHER, SELFPAY | END 2024-12-06 23:59 | disposition home or self-care (01) | LOC: RPT 10:38 | PROVIDERS: ATTENDING PHYSICIAN Family Medicine | DX: I69.354 Hemiplegia and hemiparesis following cerebral infarction affecting left non-dominant side (principal); I69.328 Other speech and language deficits following cerebral infarction; I69.320 Aphasia following cerebral infarction; Z73.6 Limitation of activities due to disability; I69.390 Apraxia following cerebral infarction | CPT/HCPCS: 92507; 97010; 97014; 97110; 97112; 97140; 97530; 97535; 97537 ==

== ENCOUNTER 2025-01-04 08:06 | Outpatient (RCR) | payer OTHER, SELFPAY | END 2025-01-04 23:59 | disposition home or self-care (01) | LOC: RPT 08:06 | PROVIDERS: ATTENDING PHYSICIAN Family Medicine | DX: I69.354 Hemiplegia and hemiparesis following cerebral infarction affecting left non-dominant side (principal); I69.328 Other speech and language deficits following cerebral infarction; I69.320 Aphasia following cerebral infarction; Z73.6 Limitation of activities due to disability; I69.390 Apraxia following cerebral infarction | CPT/HCPCS: 92507; 97010; 97110; 97112; 97140; 97530; 97535 ==

== ENCOUNTER 2025-02-03 06:52 | Outpatient (RCR) | payer OTHER, SELFPAY | END 2025-02-03 23:59 | disposition home or self-care (01) | LOC: RPT 06:52 | PROVIDERS: ATTENDING PHYSICIAN Family Medicine | DX: I69.328 Other speech and language deficits following cerebral infarction; I69.320 Aphasia following cerebral infarction; Z73.6 Limitation of activities due to disability; I69.354 Hemiplegia and hemiparesis following cerebral infarction affecting left non-dominant side; I69.390 Apraxia following cerebral infarction | CPT/HCPCS: 92507 ==

== ENCOUNTER 2025-03-07 08:36 | Outpatient (RCR) | payer OTHER, SELFPAY | END 2025-03-07 23:59 | disposition home or self-care (01) | LOC: RPT 08:36 | PROVIDERS: ATTENDING PHYSICIAN Family Medicine | DX: I69.354 Hemiplegia and hemiparesis following cerebral infarction affecting left non-dominant side (principal); I69.328 Other speech and language deficits following cerebral infarction; I69.320 Aphasia following cerebral infarction; Z73.6 Limitation of activities due to disability; I69.390 Apraxia following cerebral infarction | CPT/HCPCS: 92507 ==